=== PATIENT | female | born 1965 | race Caucasian/White ===

== ENCOUNTER 2020-09-03 18:24 | Emergency (ER) | payer MEDICAID, SELFPAY ==
--- NOTE | 2020-09-03 18:58 | PC.NURSE ---
charge nurse aware patient is in [facility] awaiting triage, on pulse ox when coughing pt drops to 84% on ra. placed on 2 l nc. 96% on 2 l nc
[2020-09-03 19:30] VITALS: BP 113/77; PULSE 77; RESP 22; TEMP 37; O2SAT 98; BMI 35.4
--- NOTE | 2020-09-03 19:53 | PC.NURSE ---
pt was in the alejo chair and ambulated to ed1 with steady gait and a barking cough. pt seen by provider benjamín jackson and waiting orders. pt has been talking on her cell phone with no sob noted but does have a nonprod cough.
--- NOTE | 2020-09-03 19:59 | XR_ITS ---
EXAMINATION: XR CHEST CLINICAL INFORMATION: Shortness of breath COMPARISON: 05/22/2020 TECHNIQUE: Frontal view of the chest was obtained. FINDINGS: No significant abnormality is noted involving the heart, lungs, mediastinum, bony thorax or soft tissues. The lungs are mildly hypoexpanded. Degenerative changes are again seen in the right shoulder. XR/XR chest 1V IMPRESSION: No acute intrathoracic disease
--- NOTE | 2020-09-03 19:59 | ECG_ITS ---
Test Reason : SHRTNESS OF BREATH Blood Pressure : / mmHG Vent. Rate : 089 BPM Atrial Rate : 089 BPM P-R Int : 126 ms QRS Dur : 078 ms QT Int : 376 ms P-R-T Axes : 036 042 054 degrees QTc Int : 457 ms Sinus rhythm with Premature atrial complexes RSR' or QR pattern in V1 suggests right ventricular conduction delay Borderline ECG When compared with ECG of 20-FEB-2020 09:32, Premature atrial complexes are now Present Heart rate has decreased Referred By: Figueroa Jaimes Electronically Signed By:VICTOR HUGO AMEZQUITA MD
[2020-09-03 20:06] VITALS: PULSE 94; O2SAT 97
[2020-09-03 20:07] VITALS: BP 121/45; PULSE 90; RESP 22; TEMP 37.2
[2020-09-03] MEDS: 0.9 % Sodium Chloride 500 ML 1000 ML IV (20:28)
[2020-09-03] MEDS: guaiFENesin DM 100/10/5 ML 5 ML SYRUP PO (20:35)
[2020-09-03] MEDS: methylPREDNISolone Sod Succ/PF 125 MG/2 ML VIAL IVPUSH (20:35)
[2020-09-03 20:40] LABS: Glucose Urine UA NEG (NEG); Leukocyte Esterase Urine NEG (NEG); Nitrite Urine NEG (NEG); PH 5.5 (5.0-8.0); Specific Gravity - Urine 1.025 (1.005-1.025); Urine Blood NEG (NEG); Urine Ketones 5 MG/DL (NEG); Urine Protein NEG (NEG-TRACE)
[2020-09-03 20:43] LABS: Appearance Urine CLEAR; Color Urine YELLOW
[2020-09-03 20:56] LABS: Bacteria Urine TRACE /LPF; RBC Urine 0-2 /HPF (0); Squamous Epithelial Cell Urine TRACE /LPF; WBC Urine 0 /HPF (0-4)
--- NOTE | 2020-09-03 21:19 | ED.URI ---
HPI - URI/Sore Throat General Chief Complaint: Upper Respiratory Symptoms Stated Complaint: cough,Sob Time Seen by Provider: 09/03/20 19:58 Source: patient Mode of arrival: ambulatory Limitations: no limitations History of Present Illness HPI Narrative: 51-year-old female with past medical history that is significant for alcohol use in the past, gastritis, abdominal hernia, history of UTI and surgical history cholecystectomy who presents today with complaint of states past 4 days of progressive worsening URI symptoms with cough. States she has had some nasal congestion the cough has caused her to be short of breath and the cough now sounds barky. Denies any recent travel or sick contacts. MD elicited complaint: cough, rhinorrhea and nasal congestion Onset (ago): day(s) Consistency: constant Severity: moderate Able to tolerate fluids by mouth: Yes Treatments prior to arrival: none Related Data Allergies Allergy/AdvReac Type Severity Reaction Status Date / Time aspirin [ASPIRIN] Allergy Unknown RASH Verified 09/03/20 19:30 Review of Systems Review of Systems: Constitutional: No Weight loss, No Fever, + Chills, No Night Sweats, No Fatigue, No Malaise ENT/Mouth: No Hearing loss, No Ear Pain, + Nasal Congestion, No Sinus Pain, No Hoarseness, No sore throat, + Rhinorrhea, No Swallowing Difficulty Eyes: No Eye Pain, No Swelling, No Redness, No Foreign Body, No Discharge, No Vision Changes Cardiovascular: No Chest Pain, + SOB, No Dyspnea on Exertion, No Orthopnea, No Edema, No Palpitations Respiratory: + Cough, No Sputum, No Wheezing, No Smoke Exposure, No Dyspnea Gastrointestinal: No Nausea, No Vomiting, No Diarrhea, No Constipation, No abdominal Pain, No Hematochezia, No Melena Genitourinary: no irregular bleeding, No Dysuria, No Urinary Frequency, No Hematuria, No Urinary Incontinence, No Urgency, No Flank Pain, No Urinary Flow Changes, No Hesitancy Musculoskeletal: No joint pain, No Myalgias, No Joint Swelling Skin: No Skin Lesions, No rash Neuro: No Weakness, No Numbness, No Paresthesias Psych: No Anxiety/Panic Heme/Lymph: No Bruising, No Bleeding,No Lymphadenopathy Endocrine: No Polyuria, No Polydipsia, No Temperature Intolerance Yes all other systems are reviewed and are negative PMFSH Past Medical History Attestation statement: The following information was validated with the patient. Source: old records reviewed Social History Social History Alcohol intake: current Alcohol intake frequency: 3 or more drinks per day Alcohol type: hard liquor Smoking Status: Never smoker Use of substances other than those prescribed or required for medical reasons: No Advance Directives: No Advance Directives Information Provided: No Physical Exam Vital Signs: Vital Signs: Last Vital Signs Temp 99.0 F 09/03/20 20:07 Pulse 90 09/03/20 20:07 Resp 22 H 09/03/20 20:07 BP 121/45 L 09/03/20 20:07 Pulse Ox 97 09/03/20 20:06 Body Mass Index 35.4 Reviewed Const: General: cooperative and healthy appearing; No acute distress or intoxicated appearing Nutritional Appearance: average body habitus Orientation/consciousness: patient oriented x3 HENMT: Head: Yes normal to inspection Ears: hearing grossly normal bilaterally Eyes: General: appearance normal, both eyes and all related structures Visual Anderson: normal visual anderson by confrontation Neck: Neck: Yes normal visual inspection, No positive Brudzinski's sign, No positive Kernig's sign and No tender Thyroid: Thyroid normal Chest: Chest palpation & inspection: normal inspection of the chest Resp: Effort & Inspection: normal respiratory effort and Actively coughing (Dry bronchial cough) Auscultation: wheezes (Very mild forced expiratory) right upper Cardio: Jugular venous distension: no JVD GI: Inspection: Yes normal to inspection Percussion: Yes normal to percussion Auscultation: normal bowel sounds : General: Yes no CVA tenderness Back/Spine/Pelvis: Back: no CVA tenderness Skin: General skin exam: no rashes or lesions noted Neuro: General: patient oriented x3 Extrem: General: Yes normal to inspection Course Course Course Narrative: Patient resting comfortably oxygen at 98% on room air after given neb and Solu-Medrol. Labs pending. Case signed out pending labs and re-evaluation. At this time likely anticipation is that if patient does well with ambulation and oxygen remains stable can be discharged home safely with antibiotics for the bronchitis. MDM - URI/Sore Throat MDM Narrative Medical decision making narrative: Interview 54-year-old female with above history presenting with complaint of short of breath/cough in the setting of a recent URI. Will need labs, chest x-ray will treat with IV fluids, DuoNeb and Solu-Medrol. Does not meet any sepsis criteria. We will check for COVID-19/influenza. Differential Diagnosis Differential diagnosis: Likely upper respiratory infection, viral infection, bronchitis and influenza; Unlikely otitis media and pharyngitis Medical Records Attestation: I reviewed the patient's medical records. Lab Data Attestation: I reviewed the patient's lab results. Labs: Lab Results 09/03/20 Range/Units 20:24 Urine Color YELLOW Urine Appearance CLEAR Urine pH 5.5 (5.0-8.0) Ur Specific [place] 1.025 (1.005-1.025) Urine Protein NEG (NEG-TRACE) MG/DL Urine Glucose (UA) NEG (NEG) MG/DL Urine Ketones 5 (NEG) MG/DL Urine Blood NEG (NEG) Urine Nitrite NEG (NEG) Ur Leukocyte Esterase NEG (NEG) Urine RBC 0-2 (0) /HPF Urine WBC 0 (0-4) /HPF Ur Squamous Epith Cells TRACE /LPF Urine Bacteria TRACE /LPF Discharge Plan Discharge Clinical Impression: Bronchitis
[2020-09-03 21:21] LABS: MANUAL DIFF FLAG NO
[2020-09-03 21:22] LABS: Basophils Percent Auto 0.6 % (0-2); Eosinophils Absolute Auto 0.3 X10*3/uL (0.0-0.4); Eosinophils Percent Auto 4.9 % (0-4); Hematocrit 37.5 % (37-47); Hemoglobin 12.2 g/dl (12.0-16.0); Imm Gran Abs Auto 0.01 X10*3/uL (0.00-0.03); Imm Gran Pct Auto 0.2 % (0.0-0.4); Lymphocytes Percent Auto 36.6 % (20-40); Mean Corpuscular HGB Conc 32.5 g/dl (31.0-35.0); Mean Corpuscular Hemoglobin 29.6 pg (27.0-33.0); Mean Platelet Volume 10.7 fL (9.4-12.3); Monocytes Absolute Auto 0.5 X10*3/uL (0.1-1.2); Monocytes Percent Auto 10.1 % (2-11); Neutrophils Absolute Auto 2.6 X10*3/uL (2.0-8.3); Neutrophils Percent Auto 47.6 % (45-73); Platelet Count 214 X10*3/uL (160-400); Red Blood Count 4.12 X10*6/uL (4.20-5.50); Red Cell Distribution Width 15.6 % (11.0-16.0); White Blood Count 5.4 X10*3/uL (4.8-10.8)
[2020-09-03 21:32] LABS: Prothrombin Time 12.3 SEC (10.8-13.0)
[2020-09-03 21:34] LABS: Partial Thromboplastin Time 32.1 SEC (24.1-38.0)
[2020-09-03 21:50] LABS: Lactic Acid 2.9 mmol/L (0.5-2.0)
[2020-09-03 21:52] LABS: Alanine Aminotransferase 28 U/L (0-31); Albumin Level 3.6 g/dL (3.5-5.0); Alkaline Phosphatase 83 U/L (39-117); Anion Gap 14 (12-20); Aspartate Amino Transferase 36 U/L (5-31); Bilirubin Total 0.5 mg/dL (0.0-1.0); Blood Urea Nitrogen 17 mg/dL (9-16); Calcium 7.7 mg/dL (8.4-10.2); Carbon Dioxide 29 mmol/L (22-29); Chloride 104 mmol/L (96-108); Estimated Glomerular Filt Rate > 60; Glucose Random 105 mg/dL (60-115); Potassium 3.4 mmol/l (3.3-5.1); Sodium 144 mmol/L (135-145); Total Protein 6.4 g/dL (6.5-8.0)
[2020-09-03 21:56] LABS: Troponin-I High Sensitivity < 3.5 ng/L (<3.5-17.0)
[2020-09-03 22:00] VITALS: BP 120/50; PULSE 88; RESP 18; TEMP 36.9; O2SAT 98
[2020-09-03 22:51] LABS: Influenza A PCR NEGATIVE (Negative); Influenza B PCR NEGATIVE (Negative); Resp Syncy Virus RNA Qual PCR NEGATIVE (Negative); SARS COV2 PCR INHOUSE NEGATIVE (Negative)
[2020-09-03] MEDS: Albuterol Sulfate 90 MCG 8 GM INHALER 4 PUFF INHALE (22:53)
[2020-09-03 23:17] LABS: Reflex Lactate? Lactic Acid Added
--- NOTE | 2020-09-03 23:56 | PC.NURSE ---
PT GETS ANXIOUSE WITH COUGHING AND FEELS LIKE SHE CANT BREATH. PT HAS BEEN NON STOP TALKING ON ENTERING THE ROOM WITH STAFF. PLAN IS TO GIVE THE PT A WALKING TEST TO SEE HOW HER BREATHING IS.
--- NOTE | 2020-09-04 00:11 | PC.NURSE ---
pt ambulated in the alejo and sat remained at 95% on room air. pt is anxiouse and her rr increases with anxiety. pt states that at home when laying in bed when she turns her head her vision is delayed. pt states she has not nasal drainage. pt dizzy upon standing. pt remains at 96% on room air while in bed.
--- NOTE | 2020-09-04 00:15 | PC.NURSE ---
hr 89 127/52 sat 95% on room air laying down hr 90 bp 105/65 sat 94% sitting position hr 94 bp 143/71 95% stqnding with swaying and dizziness.
[2020-09-04] MEDS: Meclizine HCl 25 MG TABLET PO (00:55)
[2020-09-04] MEDS: 0.9 % Sodium Chloride 1,000 ML 999 ML IVCONT (00:56)
[2020-09-04 02:00] VITALS: BP 116/57; PULSE 100; RESP 16; O2SAT 95
--- NOTE | 2020-09-04 03:18 | PC.NURSE ---
pt repeat lactic drawn after the 2nd liter of ns was ordered and completed per verbal order from provider. lactic drawn at this time and sent.
[2020-09-04 03:29] VITALS: BP 118/59; PULSE 92; RESP 20; O2SAT 95
[2020-09-04 04:04] LABS: Lactic Acid 5.8 mmol/L (0.5-2.0)
--- NOTE | 2020-09-04 04:06 | PC.NURSE ---
pt has been sleeping with no coughting noted. pt has been repositioned for better breathing and pt still positions herself to the end of the bed. vitals stable. plan is for discharge once the lactic comes back.
--- NOTE | 2020-09-04 04:09 | CT_ITS ---
EXAMINATION: CT CHEST WITHOUT CONTRAST CLINICAL INFORMATION: Shortness of breath. Concern for pneumonia. COMPARISON: 09/03/2020. TECHNIQUE: Contiguous axial thin section helical images of the chest were performed without contrast. The data set was reformatted in the coronal and sagittal planes and reviewed on an independent workstation. DLP: 435 mGy-cm. FINDINGS: The heart is of normal size. There is no pericardial effusion. There is neither mediastinal, hilar nor axillary lymphadenopathy. There are no chest wall masses. Review of lung windows demonstrates that there are neither pleural effusions nor pneumothoraces. There are no consolidations. There are no pulmonary parenchymal nodules. Images of the upper abdomen demonstrate that the liver is of normal size and attenuation without focal lesions. The patient is status post cholecystectomy. Surgical clips are identified. Normal adrenal glands are identified. Bone windows: Neither sclerotic nor lytic bone lesions are identified. CT/CT chest wo con IMPRESSION: No acute airspace disease. Automated exposure control (Care Dose) Adjustment of the mA and/or kv according to patient size (this includes techniques or standardized protocols for targeted exams where dose is matched to indication / reason for exam; i.e. extremities or head).
[2020-09-04 04:10] VITALS: BP 119/59; PULSE 85; RESP 16; O2SAT 96
--- NOTE | 2020-09-04 05:10 | PC.NURSE ---
pt up oob to bedside commode. pt states she is having diarrhea. pt pelon activity level at this time.
[2020-09-04 05:11] LABS: Reflex Lactate? Lactic Acid Added
[2020-09-04 06:00] VITALS: BP 113/56; PULSE 90; RESP 16; O2SAT 95
== END 2020-09-04 06:25 | disposition home or self-care (01) ==
PROVIDERS: Nurse Practitioner Primary Care; Physician Assistant; Emergency Provider Emergency Medicine; PCP Internal Medicine
DX: J40 Bronchitis, not specified as acute or chronic (principal); R05 Cough; Z20.828 Contact with and (suspected) exposure to other viral communicable diseases
CPT/HCPCS: 0241U; 11104; 36415; 71045; 71250; 80053; 81001; 83605; 84484; 85025; 85610; 85730; 93005; 94640; 96361; 96374; 99285; J2930

== ENCOUNTER → 2020-09-23 10:06 | Outpatient (BNVA) | payer MEDICAID, SELFPAY | PROVIDERS: PCP Internal Medicine; Visit Provider Internal Medicine | DX: R05 Cough (principal); E66.01 Morbid (severe) obesity due to excess calories; G47.33 Obstructive sleep apnea (adult) (pediatric); J98.4 Other disorders of lung | CPT/HCPCS: 99202 ==

== ENCOUNTER 2020-09-25 10:46 | Outpatient (REF) | payer MEDICAID, SELFPAY ==
--- NOTE | 2020-09-25 11:00 | PFT_ITS ---
INDICATION: Cough. SPIROMETRY: The FEV1 to FVC of 87% with an FEV1 of 2.11 L, which is 78% predicted, an FVC of 2.42 L which is 69% predicted. There was a significant response to bronchodilators noted. Maximum voluntary ventilation was not completed. Lung volumes: The patient did have a difficult time due to her cough and could not perform the full lung volume study. Her expiratory reserve volume was only indicated to be 13% however. DIFFUSION CAPACITY: DLCO 77% predicted. COMPARISONS: None. INTERPRETATION: This is a suboptimal study, but based on the information that we have, there is no obvious obstructive ventilatory defect. The patient does have a significant response to bronchodilators noted. Lung volumes could not be achieved, although the decrease in the expiratory reserve volume is suggestive of the elevated BMI. There is also mild diffusion impairment. Clinical correlation warranted. MD PATRICK Alvarez/CAMMIE / [id number]
== END 2020-09-25 10:47 | disposition home or self-care (01) ==
LOC: HO.RESP 10:46
PROVIDERS: PCP Internal Medicine; Visit Provider Family Medicine
DX: R05 Cough (principal)
CPT/HCPCS: 94010; 94729

== ENCOUNTER 2020-09-27 10:10 | Emergency (ER) | payer MEDICAID, SELFPAY ==
[2020-09-27] VITALS (8 sets, daily range): BP systolic 129–192; BP diastolic 53–110; PULSE 80–102; RESP 16–18; TEMP 37.1; O2SAT 93–98; BMI 40.4
--- NOTE | 2020-09-27 10:38 | ECG_ITS ---
Test Reason : WEAKNESS Blood Pressure : / mmHG Vent. Rate : 074 BPM Atrial Rate : 074 BPM P-R Int : 134 ms QRS Dur : 078 ms QT Int : 422 ms P-R-T Axes : 052 041 041 degrees QTc Int : 468 ms Normal sinus rhythm with sinus arrhythmia Normal ECG When compared with ECG of 03-SEP-2020 21:03, Premature atrial complexes are no longer Present Referred By: Karon Pugh Electronically Signed By:TITI MADRID MD
--- NOTE | 2020-09-27 10:38 | US_ITS ---
EXAMINATION: US VENOUS ULTRASOUND WITH DOPPLER LOWER EXTREMITY, RIGHT CLINICAL INFORMATION: Right leg pain. Rule out DVT. COMPARISON: None TECHNIQUE: Ultrasound of the deep veins is performed from the hip to the calf with compression sonography and color and pulse Doppler assessment. Spectral analysis with color-flow imaging is performed. FINDINGS: There is normal venous compression and respiratory variation and augmented flow. The visualized common femoral vein, superficial femoral vein, profunda femoral vein, popliteal vein, and the trifurcation region shows no evidence of deep venous thrombosis. There is no significant popliteal fossa cyst. There is mild soft tissue swelling in the right calf. US/US venous duplex LE RT IMPRESSION: No DVT demonstrated in the right lower extremity.
--- NOTE | 2020-09-27 10:43 | CT_ITS ---
EXAMINATION: CT ABDOMEN AND PELVIS WITH CONTRAST CLINICAL INFORMATION: Right abdominal pain, tender to palpation COMPARISON: CT chest 09/04/2020, CT abdomen and pelvis noncontrast 06/15/2020 TECHNIQUE: Multidetector volumetric images were obtained from the superior aspect of the liver through the pubic symphysis following administration 85 mL of Omnipaque 350 intravenous contrast. Sagittal and coronal reformatted images were obtained on the technologist's workstation. Oral contrast: No This CT examination was performed using dose optimization techniques as appropriate, variously including the following: *Automated exposure control *Adjustment of mA and/or kV according to patient size (this includes techniques or standardized protocols for targeted exams where dose is matched to indication/reason for exam; i.e. extremities or head) *Use of iterative reconstruction technique DLP: 827 mGy-cm FINDINGS: LUNG BASES: The visualized lung bases are unremarkable. LIVER, GALLBLADDER, AND BILIARY TREE: The liver is normal in size and smooth in contour. There is mild hepatic steatosis. No focal hepatic parenchymal lesion or intrahepatic ductal dilatation. Prior cholecystectomy. Common duct unremarkable. PANCREAS: Unremarkable. SPLEEN: Unremarkable. Incidental small splenule left upper quadrant 1 cm. ADRENAL GLANDS: Unremarkable. KIDNEYS AND URETERS: The kidneys are normal in size, shape, and attenuation. No hydronephrosis, hydroureter, or calculi seen. No perinephric stranding. BLADDER: Unremarkable. GASTROINTESTINAL TRACT: There is no bowel obstruction or acute inflammatory changes in the bowel or mesentery. The appendix is normal. Some accentuated submucosal fat is again noted right colon as previously described. There is no ascites or fluid collection. ABDOMINAL WALL: No significant hernia is appreciated. LYMPH NODES: No lymphadenopathy. VASCULAR: Unremarkable. PELVIC VISCERA: Anterior intramural uterine body fibroid under 2 cm. No adnexal mass or pelvic ascites. OSSEOUS STRUCTURES: No acute bony abnormality. Scattered degenerative changes spine. CT/CT abdomen pelvis w con IMPRESSION: 1. No acute inflammatory changes in abdomen or pelvis. Normal appendix. 2. Prior cholecystectomy. No ductal dilatation. 3. No hydronephrosis or perinephric stranding. 4. Hepatic steatosis. Small uterine fibroid.
--- NOTE | 2020-09-27 11:01 | ED_ITS ---
HPI - Extremity Problem General Chief complaint: Extremity Problem <DELORIS Parsons - Last Filed: 09/27/20 15:40> Stated complaint: RIGHT LEG PAIN/EDEMA <DELORIS Parsons Last Filed: 09/27/20 15:40> Time Seen by Provider: 09/27/20 10:26 <DELORIS Parsons - Last Filed: 09/27/20 15:40> Source: patient and EMS <DELORIS Parsons Last Filed: 09/27/20 15:40> Mode of arrival: EMS <DELORIS Parsons Last Filed: 09/27/20 15:40> History of Present Illness HPI Narrative: 54-year-old female with a past medical history of morbid obesity, TEODORA, restrictive lung disease BIBA from [facility] for RLE increased swelling and calf pain since Wednesday. Patient reports a chronic cough, chronic SOB, intermittent CP and dizziness x mos. Denies CP at present. Reports room spinning dizziness, worse with head movements/position changes, denies taking medications at home. Also reports acute on chronic abdominal pain, believe she has a hernia. Admits to nausea/vomiting. Denies fever, chills, dysuria/hematuria, diarrhea/constipation, recent travel, history of blood clots <DELORIS Parsons Last Filed: 09/27/20 15:40> MD Complaint: extremity pain and extremity swelling <DELORIS Parsons - Last Filed: 09/27/20 15:40> Related Data Home medications: Home Medications Medication Instructions Recorded Confirmed fluticasone propionate 110 1 puff INHALATION QID g 09/23/20 mcg/actuation HFA aerosol inhaler fluticasone propionate 50 1 spray INTRANASAL DAILY 09/23/20 mcg/actuation nasal spray,suspension hydroxyzine pamoate 25 mg capsule 25 mg PO TID 09/23/20 ipratropium 20 mcg-albuterol 100 1 puff INHALATION QID 09/23/20 mcg/actuation mist for inhalation loratadine-pseudoephedrine ER 10 1 tab PO DAILY 09/23/20 mg-240 mg tablet,extended [id number] omeprazole 20 mg capsule,delayed 20 mg PO DAILY 09/23/20 release Previous Rx's Medication Instructions Recorded albuterol sulfate 2 puff INHALATION Q6H PRN #18 g 09/04/20 benzonatate [Tessalon Perles] 100 mg PO TID PRN #15 cap 09/04/20 meclizine 25 mg PO TID PRN #14 tab 09/27/20 <DELORIS Parsons - Last Filed: 09/27/20 15:40> Allergies/Adverse reactions: Allergies Allergy/AdvReac Type Severity Reaction Status Date / Time aspirin [ASPIRIN] Allergy Unknown RASH Verified 09/23/20 10:29 <DELORIS Parsons - Last Filed: 09/27/20 15:40> Review of Systems Review of Systems: Constitutional: No Weight loss, No Fever, No Chills ENT/Mouth: No Ear Pain, No Nasal Congestion, No Sinus Pain, No sore throat Cardiovascular: +intermittent Chest Pain (not at present), +chronic SOB, +RLE Edema, No Palpitations Respiratory: +chronic Cough, No Sputum, No Wheezing Gastrointestinal: + Nausea, + Vomiting, No Diarrhea, No Constipation, + Abdominal pain Genitourinary: No irregular bleeding, No Dysuria, No Urinary Frequency, No Hematuria Musculoskeletal: No joint pain, No Myalgias, No Joint Swelling Skin: No Skin Lesions, No rash <DELORIS Parsons - Last Filed: 09/27/20 15:40> Yes all other systems are reviewed and are negative <DELORIS Parsons - Last Filed: 09/27/20 15:40> [facility] Past Medical History Attestation statement: The following information was validated with the patient. <DELORIS Parsons - Last Filed: 09/27/20 15:40> Medical History: Medical History (Updated 09/28/20 @ 00:00 by Sona Fairchild) Cough Morbid obesity TEODORA (obstructive sleep apnea) Restrictive lung disease <DELORIS Parsons - Last Filed: 09/27/20 15:40> Social History Social History: Social History Alcohol intake: current Alcohol intake frequency: a few times a week Alcohol type: hard liquor Smoking Status: Never smoker <DELORIS Parsons Last Filed: 09/27/20 15:40> Physical Exam Vital Signs: Vital Signs: Last Vital Signs Temp 98.7 F 09/27/20 14:00 Pulse 102 H 09/27/20 14:57 Resp 18 09/27/20 14:00 BP 177/92 H 09/27/20 14:57 Pulse Ox 98 09/27/20 14:00 Body Mass Index 40.4 <DELORIS Parsons - Last Filed: 09/27/20 15:40> Vital Signs: Last Vital Signs Temp 98.7 F 09/27/20 14:00 Pulse 102 H 09/27/20 14:57 Resp 18 09/27/20 14:00 BP 177/92 H 09/27/20 14:57 Pulse Ox 98 09/27/20 14:00 Body Mass Index 40.4 <Myron Dodd MD - Last Filed: 10/18/20 08:57> Const: General: cooperative <DELORIS Parsons - Last Filed: 09/27/20 15:40> Nutritional Appearance: obese <DELORIS Parsons - Last Filed: 09/27/20 15:40> Orientation/consciousness: patient oriented x3 <DELORIS Parsons - Last Filed: 09/27/20 15:40> Limitations: no limitations <DELORIS Parsons - Last Filed: 09/27/20 15:40> HENMT: Head: Yes normal to inspection <DELORIS Parsons - Last Filed: 09/27/20 15:40> Ears: hearing grossly normal bilaterally <DELORIS Parsons - Last Filed: 09/27/20 15:40> General nose exam: Normal external nose present <DELORIS Parsons - Last Filed: 09/27/20 15:40> Face and sinus: Yes normal facial exam <DELORIS Parsons - Last Filed: 09/27/20 15:40> Eyes: General: appearance normal, both eyes and all related structures <DELORIS Parsons - Last Filed: 09/27/20 15:40> EOM: EOMs intact bilaterally <DELORIS Parsons - Last Filed: 09/27/20 15:40> Neck: Neck: Yes normal visual inspection <DELORIS Parsons - Last Filed: 09/27/20 15:40> Chest: Chest palpation & inspection: normal inspection of the chest <DELORIS Parsons - Last Filed: 09/27/20 15:40> Resp: Effort & Inspection: normal respiratory effort <DELORIS Parsons - Last Filed: 09/27/20 15:40> Auscultation: clear to auscultation bilaterally, no crackles, no rales, no rhonchi and no wheezes <DELORIS Parsons - Last Filed: 09/27/20 15:40> Cardio: Rate: regular rate <DELORIS Parsons - Last Filed: 09/27/20 15:40> Heart sounds: S1 normal heart sound present and S2 normal heart sound present <DELORIS Parsons - Last Filed: 09/27/20 15:40> GI: Inspection: Yes normal to inspection <DELORIS Prasons - Last Filed: 09/27/20 15:40> Palpation (GI): Soft to palpation, Tenderness to palpation present (GI) (R abdomen) in the RLQ, no guarding and not rigid <DELORIS Parsons - Last Filed: 09/27/20 15:40> Skin: Other: + superficial excoriations noted to bilateral lower extremities. No evidence of active infection <DELORIS Parsons - Last Filed: 09/27/20 15:40> Neuro: General: patient oriented x3 <DELORIS Parsons - Last Filed: 09/27/20 15:40> Extrem: Other: +RLE pitting edema with calf tenderness and positive Homans sign <DELORIS Parsons - Last Filed: 09/27/20 15:40> Course Course Course Narrative: -1239--AST/ALT mildly elevated -Venous duplex negative for DVT -1445--CT AP without acute inflammatory changes in the abdomen or pelvis. Normal appendix. -orthostatic vital signs positive, will recheck after IVF -1536--repeat orthostatic vital signs negative after IVF Lab and imaging results discussed with patient including close follow-up with PCP, worrisome signs and symptoms and strict return precautions. Patient verbalized understanding feel safe for discharge home <DELORIS Parsons - Last Filed: 09/27/20 15:40> I have reviewed the chart <Myron Dodd MD - Last Filed: 10/18/20 08:57> MDM - Extremity (Nontraumatic) MDM Narrative Medical decision making narrative: 54-year-old female with a past medical history of morbid obesity, TEODORA, res trictive lung disease BIBA from [facility] for RLE increased swelling and calf pain since Wednesday. Patient reports a chronic cough, chronic SOB, intermittent CP and dizziness x mos On exam VSS, NAD, lungs CTA, RLE pitting edema/calf tenderness noted, abdomen soft with right abdominal TTP, no rebound or guarding. Concern for DVT vs intra abdominal infection including appendicitis vs metabolic abnormalities vs BPPV. Rule out infectious etiology. Low concern for ACS or PE Recent chest CT and x-ray without acute findings. Plan: EKG, labs, UA, venous duplex, CT AP, reassess <DELORIS Parsons - Last Filed: 09/27/20 15:40> Lab Data Result diagrams: : 09/27/20 11:29 09/27/20 11:29 <DELORIS Parsons - Last Filed: 09/27/20 15:40> Labs: Lab Results 09/27/20 09/27/20 09/27/20 Range/Units 11:29 11:29 11:29 WBC 8.6 (4.8-10.8) X10*3/uL RBC 4.01 L (4.20-5.50) X10*6/uL Hgb 12.0 (12.0-16.0) g/dl Hct 37.3 (37-47) % MCV 93.0 (80-98) fL MCH 29.9 (27.0-33.0) pg MCHC 32.2 (31.0-35.0) g/dl RDW 14.8 (11.0-16.0) % Plt Count 250 (160-400) X10*3/uL MPV 10.5 (9.4-12.3) fL Immature Gran % (Auto) 0.8 H (0.0-0.4) % Neut % (Auto) 76.5 H (45-73) % Lymph % (Auto) 11.9 L (20-40) % Cla[place]orne % (Auto) 7.9 (2-11) % Eos % (Auto) 2.7 (0-4) % Baso % (Auto) 0.2 (0-2) % Lymph # (Auto) 1.0 L (1.2-4.9) X10*3/uL [place] # (Auto) 0.7 (0.1-1.2) X10*3/uL Eos # (Auto) 0.2 (0.0-0.4) X10*3/uL Baso # (Auto) 0.0 (0.0-0.2) X10*3/uL Abs Immat Gran (auto) 0.07 H (0.00-0.03) X10*3/uL Absolute Neuts (auto) 6.6 (2.0-8.3) X10*3/uL Absolute Nucleated RBC 0.000 (0.0-0.012) X10*3/uL Nucleated RBC % (auto) 0.0 (0.0-0.2) /100WBC PT (10.8-13.0) SEC INR (0.9-1.1) APTT (24.1-38.0) SEC Sodium 141 (135-145) mmol/L Potassium 3.6 (3.3-5.1) mmol/l Chloride 100 (96-108) mmol/L Carbon Dioxide 32 H (22-29) mmol/L Anion Gap 13 (12-20) BUN 10 (9-16) mg/dL Creatinine 0.69 (0.5-1.4) mg/dL Estim Creat Clear Calc 112.5 Estimated GFR > 60 Random Glucose 87 (60-115) mg/dL Calcium 8.5 D (8.4-10.2) mg/dL Magnesium 1.6 (1.6-2.6) mg/dL Total Bilirubin 0.6 (0.0-1.0) mg/dL Direct Bilirubin 0.2 (0.0-0.5) mg/dL AST 46 H (5-31) U/L ALT 38 H (0-31) U/L Alkaline Phosphatase 114 D (39-117) U/L Troponin I High Sens 4.7 (<3.5-17.0) ng/L B-Natriuretic Peptide 43 (<100) pg/mL Total Protein 6.7 (6.5-8.0) g/dL Albumin 4.0 (3.5-5.0) g/dL Lipase 12 (8-78) U/L 09/27/20 Range/Units 11:29 WBC (4.8-10.8) X10*3/uL RBC (4.20-5.50) X10*6/uL Hgb (12.0-16.0) g/dl Hct (37-47) % MCV (80-98) fL MCH (27.0-33.0) pg MCHC (31.0-35.0) g/dl RDW (11.0-16.0) % Plt Count (160-400) X10*3/uL MPV (9.4-12.3) fL Immature Gran % (Auto) (0.0-0.4) % Neut % (Auto) (45-73) % Lymph % (Auto) (20-40) % Claiborne % (Auto) (2-11) % Eos % (Auto) (0-4) % Baso % (Auto) (0-2) % Lymph # (Auto) (1.2-4.9) X10*3/uL Claiborne # (Auto) (0.1-1.2) X10*3/uL Eos # (Auto) (0.0-0.4) X10*3/uL Baso # (Auto) (0.0-0.2) X10*3/uL Abs Immat Gran (auto) (0.00-0.03) X10*3/uL Absolute Neuts (auto) (2.0-8.3) X10*3/uL Absolute Nucleated RBC (0.0-0.012) X10*3/uL Nucleated RBC % (auto) (0.0-0.2) /100WBC PT 11.3 (10.8-13.0) SEC INR 1.0 (0.9-1.1) APTT 35.5 (24.1-38.0) SEC Sodium (135-145) mmol/L Potassium (3.3-5.1) mmol/l Chloride (96-108) mmol/L Carbon Dioxide (22-29) mmol/L Anion Gap (12-20) BUN (9-16) mg/dL Creatinine (0.5-1.4) mg/dL Estim Creat Clear Calc Estimated GFR Random Glucose (60-115) mg/dL Calcium (8.4-10.2) mg/dL Magnesium (1.6-2.6) mg/dL Total Bilirubin (0.0-1.0) mg/dL Direct Bilirubin (0.0-0.5) mg/dL AST (5-31) U/L ALT (0-31) U/L Alkaline Phosphatase (39-117) U/L Troponin I High Sens (<3.5-17.0) ng/L B-Natriuretic Peptide (<100) pg/mL Total Protein (6.5-8.0) g/dL Albumin (3.5-5.0) g/dL Lipase (8-78) U/L <DELORIS Parsons - Last Filed: 09/27/20 15:40> Lab Results 09/27/20 09/27/20 09/27/20 Range/Units 11:29 11:29 11:29 WBC 8.6 (4.8-10.8) X10*3/uL RBC 4.01 L (4.20-5.50) X10*6/uL Hgb 12.0 (12.0-16.0) g/dl Hct 37.3 (37-47) % MCV 93.0 (80-98) fL MCH 29.9 (27.0-33.0) pg MCHC 32.2 (31.0-35.0) g/dl RDW 14.8 (11.0-16.0) % Plt Count 250 (160-400) X10*3/uL MPV 10.5 (9.4-12.3) fL Immature Gran % (Auto) 0.8 H (0.0-0.4) % Neut % (Auto) 76.5 H (45-73) % Lymph % (Auto) 11.9 L (20-40) % Cla[place]orne % (Auto) 7.9 (2-11) % Eos % (Auto) 2.7 (0-4) % Baso % (Auto) 0.2 (0-2) % Lymph # (Auto) 1.0 L (1.2-4.9) X10*3/uL Cla[place]orne # (Auto) 0.7 (0.1-1.2) X10*3/uL Eos # (Auto) 0.2 (0.0-0.4) X10*3/uL Baso # (Auto) 0.0 (0.0-0.2) X10*3/uL Abs Immat Gran (auto) 0.07 H (0.00-0.03) X10*3/uL Absolute Neuts (auto) 6.6 (2.0-8.3) X10*3/uL Absolute Nucleated RBC 0.000 (0.0-0.012) X10*3/uL Nucleated RBC % (auto) 0.0 (0.0-0.2) /100WBC PT (10.8-13.0) SEC INR (0.9-1.1) APTT (24.1-38.0) SEC Sodium 141 (135-145) mmol/L Potassium 3.6 (3.3-5.1) mmol/l Chloride 100 (96-108) mmol/L Carbon Dioxide 32 H (22-29) mmol/L Anion Gap 13 (12-20) BUN 10 (9-16) mg/dL Creatinine 0.69 (0.5-1.4) mg/dL Estim Creat Clear Calc 112.5 Estimated GFR > 60 Random Glucose 87 (60-115) mg/dL Calcium 8.5 D (8.4-10.2) mg/dL Magnesium 1.6 (1.6-2.6) mg/dL Total Bilirubin 0.6 (0.0-1.0) mg/dL Direct Bilirubin 0.2 (0.0-0.5) mg/dL AST 46 H (5-31) U/L ALT 38 H (0-31) U/L Alkaline Phosphatase 114 D (39-117) U/L Troponin I High Sens 4.7 (<3.5-17.0) ng/L B-Natriuretic Peptide 43 (<100) pg/mL Total Protein 6.7 (6.5-8.0) g/dL Albumin 4.0 (3.5-5.0) g/dL Lipase 12 (8-78) U/L 09/27/20 Range/Units 11:29 WBC (4.8-10.8) X10*3/uL RBC (4.20-5.50) X10*6/uL Hgb (12.0-16.0) g/dl Hct (37-47) % MCV (80-98) fL MCH (27.0-33.0) pg MCHC (31.0-35.0) g/dl RDW (11.0-16.0) % Plt Count (160-400) X10*3/uL MPV (9.4-12.3) fL Immature Gran % (Auto) (0.0-0.4) % Neut % (Auto) (45-73) % Lymph % (Auto) (20-40) % Cla[place]orne % (Auto) (2-11) % Eos % (Auto) (0-4) % Baso % (Auto) (0-2) % Lymph # (Auto) (1.2-4.9) X10*3/uL Cla[place]orne # (Auto) (0.1-1.2) X10*3/uL Eos # (Auto) (0.0-0.4) X10*3/uL Baso # (Auto) (0.0-0.2) X10*3/uL Abs Immat Gran (auto) (0.00-0.03) X10*3/uL Absolute Neuts (auto) (2.0-8.3) X10*3/uL Absolute Nucleated RBC (0.0-0.012) X10*3/uL Nucleated RBC % (auto) (0.0-0.2) /100WBC PT 11.3 (10.8-13.0) SEC INR 1.0 (0.9-1.1) APTT 35.5 (24.1-38.0) SEC Sodium (135-145) mmol/L Potassium (3.3-5.1) mmol/l Chloride (96-108) mmol/L Carbon Dioxide (22-29) mmol/L Anion Gap (12-20) BUN (9-16) mg/dL Creatinine (0.5-1.4) mg/dL Estim Creat Clear Calc Estimated GFR Random Glucose (60-115) mg/dL Calcium (8.4-10.2) mg/dL Magnesium (1.6-2.6) mg/dL Total Bilirubin (0.0-1.0) mg/dL Direct Bilirubin (0.0-0.5) mg/dL AST (5-31) U/L ALT (0-31) U/L Alkaline Phosphatase (39-117) U/L Troponin I High Sens (<3.5-17.0) ng/L B-Natriuretic Peptide (<100) pg/mL Total Protein (6.5-8.0) g/dL Albumin (3.5-5.0) g/dL Lipase (8-78) U/L <Myron Dodd MD - Last Filed: 10/18/20 08:57> Discharge Plan Discharge Clinical Impression: Edema of right lower extremity, Dizziness <DELORIS Parsons - Last Filed: 09/27/20 15:40> Patient Disposition: Home, Self-Care <DELORIS Parsons - Last Filed: 09/27/20 15:40> Instructions: Leg Edema (ED) <DELORIS Parsons - Last Filed: 09/27/20 15:40> Additional Instructions: Your blood work and imaging studies were unremarkable today in the ED You need to stay hydrated at Wear compression stockings on your leg Follow-up with her primary care doctor If her symptoms persist or worsen, develops fever, shortness breath, chest pain, constant persistent lightheadedness/dizziness return to the ED Meclizine is for dizziness, take as needed <DELORIS Parsons - Last Filed: 09/27/20 15:40> Prescriptions: New meclizine 25 mg tablet 25 mg PO TID PRN (Reason: dizziness) Qty: 14 RF: 0 No Action benzonatate [Tessalon Perles] 100 mg capsule 100 mg PO TID PRN (Reason: cough) Qty: 15 RF: 0 albuterol sulfate 90 mcg/actuation HFA aerosol inhaler 2 puff inhalation Q6H PRN (Reason: shortness of breath or wheezing) Qty: 18 RF: 0 Flovent HFA 110 mcg/actuation HFA aerosol inhaler 1 puff inhalation QID RF: 0 Combivent Respimat 20-100 mcg/actuation mist 1 puff inhalation QID RF: 0 fluticasone propionate [Flonase Allergy Relief] 50 mcg/actuation spray,suspension 1 spray intranasal DAILY RF: 0 omeprazole 20 mg capsule,delayed release(DR/EC) 20 mg PO DAILY RF: 0 loratadine-pseudoephedrine [Claritin-D 24 Hour] 10-240 mg tablet extended release 24 hr 1 tab PO DAILY RF: 0 hydroxyzine pamoate 25 mg capsule 25 mg PO TID RF: 0 <DELORIS Parsons - Last Filed: 09/27/20 15:40> Referrals: [facility] [Primary Care Provider] - 2 days <DELORIS Parsons - Last Filed: 09/27/20 15:40> Interventions: ED Discharge Assessment Last Done: 09/27/20 16:37 <DELORIS Parsons - Last Filed: 09/27/20 15:40> Discharge Date/Time: 09/27/20 16:40 <DELORIS Parsons - Last Filed: 09/27/20 15:40>
[2020-09-27] MEDS: Meclizine HCl 25 MG TABLET PO (11:23)
[2020-09-27] MEDS: 0.9 % Sodium Chloride 500 ML 999 ML IVCONT (11:24)
[2020-09-27 11:43] LABS: Basophils Percent Auto 0.2 % (0-2); Eosinophils Absolute Auto 0.2 X10*3/uL (0.0-0.4); Eosinophils Percent Auto 2.7 % (0-4); Hematocrit 37.3 % (37-47); Imm Gran Abs Auto 0.07 X10*3/uL (0.00-0.03); Imm Gran Pct Auto 0.8 % (0.0-0.4); Lymphocytes Percent Auto 11.9 % (20-40); MANUAL DIFF FLAG NO; Mean Corpuscular HGB Conc 32.2 g/dl (31.0-35.0); Mean Corpuscular Hemoglobin 29.9 pg (27.0-33.0); Mean Platelet Volume 10.5 fL (9.4-12.3); Monocytes Absolute Auto 0.7 X10*3/uL (0.1-1.2); Monocytes Percent Auto 7.9 % (2-11); Neutrophils Absolute Auto 6.6 X10*3/uL (2.0-8.3); Neutrophils Percent Auto 76.5 % (45-73); Platelet Count 250 X10*3/uL (160-400); Red Blood Count 4.01 X10*6/uL (4.20-5.50); Red Cell Distribution Width 14.8 % (11.0-16.0); White Blood Count 8.6 X10*3/uL (4.8-10.8)
[2020-09-27 12:00] LABS: Prothrombin Time 11.3 SEC (10.8-13.0)
[2020-09-27 12:03] LABS: Partial Thromboplastin Time 35.5 SEC (24.1-38.0)
[2020-09-27 12:21] LABS: Alanine Aminotransferase 38 U/L (0-31); Alkaline Phosphatase 114 U/L (39-117); Anion Gap 13 (12-20); Aspartate Amino Transferase 46 U/L (5-31); Bilirubin Direct 0.2 mg/dL (0.0-0.5); Bilirubin Total 0.6 mg/dL (0.0-1.0); Blood Urea Nitrogen 10 mg/dL (9-16); Calcium 8.5 mg/dL (8.4-10.2); Carbon Dioxide 32 mmol/L (22-29); Chloride 100 mmol/L (96-108); Creatinine Clr Calc Pharmacy 112.5; Estimated Glomerular Filt Rate > 60; Glucose Random 87 mg/dL (60-115); Lipase 12 U/L (8-78); Magnesium 1.6 mg/dL (1.6-2.6); Potassium 3.6 mmol/l (3.3-5.1); Sodium 141 mmol/L (135-145); Total Protein 6.7 g/dL (6.5-8.0)
[2020-09-27 12:29] LABS: B Type Natriuretic Peptide 43 pg/mL (<100)
[2020-09-27] MEDS: iohexoL 350 MG/ML 100 ML INFUS..BTL IV (12:54)
[2020-09-27 13:36] LABS: Troponin-I High Sensitivity 4.7 ng/L (<3.5-17.0)
[2020-09-27] MEDS: Butalb/Acetamin/Caff 50/325/40 TABLET 1 TAB PO (14:26)
[2020-09-27] MEDS: ondansetron HCL 4 MG/2 ML VIAL IVPUSH (14:26)
--- NOTE | 2020-09-27 16:24 | PC.NURSE ---
Report called to RN.
== END 2020-09-27 16:40 | disposition home or self-care (01) ==
PROVIDERS: Physician Assistant; Emergency Provider Emergency Medicine
DX: R60.0 Localized edema (principal); M79.661 Pain in right lower leg; R42 Dizziness and giddiness; Z79.899 Other long term (current) drug therapy
CPT/HCPCS: 36415; 74177; 80048; 80076; 83690; 83735; 83880; 84484; 85025; 85610; 85730; 93005; 93971; 96374; 99284; J2405; Q9967

== ENCOUNTER 2020-10-04 10:26 | Outpatient (REF) | payer MEDICAID, SELFPAY ==
--- NOTE | 2020-10-04 10:33 | XR_ITS ---
EXAMINATION: XR FOOT, RIGHT CLINICAL INFORMATION: Swelling COMPARISON: None TECHNIQUE: AP, lateral, and oblique views of the right foot. FINDINGS: Bone alignment is normal. No fracture or dislocation is seen. Joint spaces are normal. There is a plantar calcaneal spur. Soft tissues are otherwise normal. XR/XR foot RT min 3V IMPRESSION: Calcaneal spur otherwise unremarkable exam.
== END 2020-10-04 10:27 | disposition home or self-care (01) ==
LOC: HO.XRAY 10:26
PROVIDERS: PCP Internal Medicine; Visit Provider Family Medicine
DX: R60.0 Localized edema (principal)
CPT/HCPCS: 73630

== ENCOUNTER → 2020-10-14 12:22 | Outpatient (REF) | payer MEDICAID, SELFPAY | LOC: HO.SL 12:22 | PROVIDERS: PCP Internal Medicine; Visit Provider Internal Medicine | DX: G47.33 Obstructive sleep apnea (adult) (pediatric) (principal); E66.01 Morbid (severe) obesity due to excess calories | CPT/HCPCS: 95806 ==

== ENCOUNTER → 2020-10-28 11:25 | Outpatient (BNVA) | payer MEDICAID, SELFPAY | PROVIDERS: PCP Family Medicine; Visit Provider Internal Medicine | DX: R05 Cough (principal); G47.33 Obstructive sleep apnea (adult) (pediatric); J98.4 Other disorders of lung; I27.0 Primary pulmonary hypertension; E66.01 Morbid (severe) obesity due to excess calories; Z79.899 Other long term (current) drug therapy | CPT/HCPCS: 99212 ==

== ENCOUNTER 2020-11-18 17:28 | Inpatient (IN) | payer MEDICAID, SELFPAY ==
--- NOTE | 2020-11-18 | ECG_ITS ---
Test Reason : CHEST PAIN Blood Pressure : / mmHG Vent. Rate : 093 BPM Atrial Rate : 093 BPM P-R Int : 136 ms QRS Dur : 074 ms QT Int : 400 ms P-R-T Axes : 051 032 050 degrees QTc Int : 498 ms Normal sinus rhythm Possible Left atrial enlargement Nonspecific ST abnormality Prolonged QT Abnormal ECG When compared with ECG of 27-SEP-2020 11:40, QT has lengthened Referred By: Jose Guerrero Electronically Signed By:Elias Bloom
[2020-11-18 18:11] VITALS: BP 117/86; PULSE 110; RESP 18; TEMP 36.8; O2SAT 97; BMI 42.9
--- NOTE | 2020-11-18 18:43 | XR_ITS ---
EXAMINATION: XR CHEST CLINICAL INFORMATION: Chest pain. Discomfort. COMPARISON: Chest x-ray 09/03/2020 TECHNIQUE: Frontal view of the chest was obtained. 6:54 PM FINDINGS: No significant abnormality is noted involving the heart, lungs, mediastinum, bony thorax or soft tissues. XR/XR chest 1V IMPRESSION: Unremarkable examination.
[2020-11-18 20:33] LABS: Basophils Absolute Auto 0.1 X10*3/uL (0.0-0.2); Basophils Percent Auto 0.3 % (0-2); Eosinophils Absolute Auto 0.2 X10*3/uL (0.0-0.4); Hematocrit 42.3 % (37-47); Hemoglobin 14.9 g/dl (12.0-16.0); Imm Gran Abs Auto 0.06 X10*3/uL (0.00-0.03); Imm Gran Pct Auto 0.4 % (0.0-0.4); Lymphocytes Absolute Auto 1.4 X10*3/uL (1.2-4.9); Lymphocytes Percent Auto 9.8 % (20-40); MANUAL DIFF FLAG NO; Mean Corpuscular HGB Conc 35.2 g/dl (31.0-35.0); Mean Corpuscular Hemoglobin 30.3 pg (27.0-33.0); Mean Corpuscular Volume 86.2 fL (80-98); Mean Platelet Volume 10.8 fL (9.4-12.3); Monocytes Percent Auto 6.8 % (2-11); NRBC Pct Auto 0.1 /100WBC (0.0-0.2); Neutrophils Percent Auto 81.7 % (45-73); Platelet Count 230 X10*3/uL (160-400); Red Blood Count 4.91 X10*6/uL (4.20-5.50); Red Cell Distribution Width 13.9 % (11.0-16.0); White Blood Count 14.7 X10*3/uL (4.8-10.8)
[2020-11-18 21:03] LABS: Anion Gap 22 (12-20); Blood Urea Nitrogen 21 mg/dL (9-16); Calcium 8.6 mg/dL (8.4-10.2); Carbon Dioxide 27 mmol/L (22-29); Chloride 90 mmol/L (96-108); Creatinine Clr Calc Pharmacy 34.9; Estimated Glomerular Filt Rate 22; Glucose Random 129 mg/dL (60-115); Potassium 2.7 mmol/l (3.3-5.1); Sodium 136 mmol/L (135-145)
[2020-11-18 21:25] LABS: Troponin-I High Sensitivity 20.4 ng/L (<3.5-17.0)
[2020-11-18 21:39] VITALS: BP 90/40; PULSE 99; RESP 24; TEMP 37.2; O2SAT 99
[2020-11-18 23:01] VITALS: BP 100/52; PULSE 87; RESP 16; O2SAT 93
--- NOTE | 2020-11-18 23:03 | PC.NURSE ---
Pt arrives from home, CAOx4, speaking full sentences. Pt explains that she recently traveled to [place] for a week to visit family. Pt states that while she was there, she forgot her Lisinopril. Pt states that she just started taking her Lisinopril as prescribed when she returned today. Pt reports elevated BP readings @ home with a systolic of 188. Pt ambulating with a steady gait from wheelchair to bed, speaking full sentences. Pt c/o a JIM and chest discomfort. EKG obtained in Triage. Pt also reporting severe abdominal pain, states her whole abdomen. Reports intermittent diarrhea, states she had had the abdominal pain for 2 months. VSS. Awaiting primary MD landen.
[2020-11-18] MEDS: Potassium Chloride ER 20 MEQ TAB.ER.PRT 60 MEQ PO (23:47)
[2020-11-18] MEDS: Morphine Sulfate 4 MG/ML CARTRIDGE IVPUSH (23:47)
[2020-11-18] MEDS: 0.9 % Sodium Chloride 1,000 ML 999 ML IV (23:47)
[2020-11-18] MEDS: Potassium Chloride/H20 10 MEQ/100 ML PIGGYBACK 100 MEQ IV (23:47)
[2020-11-18 23:53] LABS: Alanine Aminotransferase 40 U/L (0-31); Alkaline Phosphatase 310 U/L (39-117); Aspartate Amino Transferase 57 U/L (5-31); Bilirubin Direct 0.6 mg/dL (0.0-0.5); Bilirubin Total 1.5 mg/dL (0.0-1.0); C Reactive Protein 0.52 mg/dL (< or = 0.50); Lipase 39 U/L (8-78); Magnesium 1.5 mg/dL (1.6-2.6); Total Protein 6.9 g/dL (6.5-8.0)
[2020-11-19] VITALS (10 sets, daily range): BP systolic 92–134; BP diastolic 47–71; PULSE 82–96; RESP 16–24; TEMP 36.4–37.1; O2SAT 93–96
[2020-11-19] MEDS: ondansetron HCL 4 MG/2 ML VIAL IVPUSH (00:10)
--- NOTE | 2020-11-19 00:10 | PC.NURSE ---
IV established, labs and Covid swab obtained and sent. IVF and Potassium infusing per MAR. Pt medicated with Morphine for 9/10 pain to head, chest and abdomen. Pt vomiting, given Zofran with relief. 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 Continue to monitor.
[2020-11-19 00:30] LABS: COVID-19 Test Negative (Negative)
[2020-11-19 00:42] LABS: Troponin-I High Sensitivity 28.9 ng/L (<3.5-17.0)
--- NOTE | 2020-11-19 00:52 | CT_ITS ---
EXAM: NONCONTRAST CT OF THE CHEST; NONCONTRAST CT OF THE ABDOMEN AND PELVIS INDICATION: Chest pain, cough, shortness of breath, diffuse abdominal pain, vomiting/diarrhea, elevated LFTs COMPARISON: 09/27/2020 TECHNIQUE: No IV contrast was utilized. Multidetector helical imaging was performed through the chest, abdomen, and pelvis. Coronal and sagittal reformatted images were created at the technologist workstation. DOSE LOWERING TECHNIQUES: This CT examination was performed using dose optimization techniques as appropriate, variously including the following: - Automated exposure control - Adjustment of mA and/or kV according to patient size (this includes techniques or standardized protocols for targeted exams were dose is matched to indication/reason for exam; i.e. extremities or head) - Use of iterative reconstruction technique DLP: 1393 mGy-cm FINDINGS: Chest: Lungs are clear bilaterally without consolidation. Few scattered calcified granulomas are present. No pneumothorax or pleural effusion. The thyroid gland is not visualized. There are subcentimeter mediastinal lymph nodes within the range of normal variation. Cardiac size is within normal limits; no pericardial effusion. No axillary lymphadenopathy is present. Abdomen/Pelvis: The liver demonstrates hypoattenuation suspicious for steatosis. No intrahepatic biliary ductal dilatation. Patient is status post cholecystectomy. The unenhanced spleen, pancreas, and adrenal glands are within normal limits. The unenhanced kidneys are unremarkable without hydronephrosis. No renal or ureteral calculi are present. The urinary bladder is nearly empty and not well evaluated. There is a suspected anterior uterine fibroid, not well delineated on this noncontrast exam. No evidence of bowel obstruction or active inflammation. There is prominent submucosal fat in the ascending colon which can be seen as sequelae of prior inflammation. The appendix is unremarkable. No free fluid or free air is identified. The unenhanced vascular structures are unremarkable. No retroperitoneal or pelvic lymphadenopathy is seen. Degenerative changes are noted in the lumbar spine. CT/CT abdomen pelvis wo con IMPRESSION: 1. No acute findings identified in the chest, abdomen, or pelvis. 2. Hepatic steatosis.
--- NOTE | 2020-11-19 01:04 | ED_ITS ---
HPI - General Adult General Chief complaint: General Medical Stated complaint: high bp Time Seen by Provider: 11/18/20 23:09 Source: patient Mode of arrival: ambulatory Limitations: no limitations History of Present Illness HPI narrative: 55-year-old female with a past medical history of morbid obesity, TEODORA on nightly CPAP, restrictive lung disease, GERD here with multiple complaints. Patient initially told the nurse at triage that she has been having high blood pressure for the last few days to week. She tells me that she is not here for this. She does me that she is here for generalized abdominal cramping with associated nausea, vomiting and diarrhea. She tells me that she has had these symptoms for months. She was taking a medication which she believes was Bentyl which significantly helped her symptoms. She ran out of this medicine. She tells me that she has 4-5 episodes of diarrhea today. Not black or bloody. Vomiting after eating NBNB. She is also complaining of some generalized chest pain which she has had since waking this morning which she describes as burning. Pain is associated with her abdominal pain. She tells me she has shortness of breath and cough which is chronic for her and not worsened from baseline. No leg pain or swelling. Onset (ago): week(s) Location: chest and abdomen Radiation: non-radiation Quality: burning Pain Consistency: intermittent Relieving factors: none Exacerbating factors: none Associated symptoms: nausea/vomiting Treatments prior to arrival: none Related Data Home Medications Medication Instructions Recorded Confirmed fluticasone propionate 110 1 puff INHALATION QID g 09/23/20 mcg/actuation HFA aerosol inhaler fluticasone propionate 50 1 spray INTRANASAL DAILY 09/23/20 mcg/actuation nasal spray,suspension hydroxyzine pamoate 25 mg capsule 25 mg PO TID 09/23/20 ipratropium 20 mcg-albuterol 100 1 puff INHALATION QID 09/23/20 mcg/actuation mist for inhalation loratadine-pseudoephedrine ER 10 1 tab PO DAILY 09/23/20 mg-240 mg tablet,extended [id number] omeprazole 20 mg capsule,delayed 20 mg PO DAILY 09/23/20 release Previous Rx's Medication Instructions Recorded albuterol sulfate 2 puff INHALATION Q6H PRN #18 g 09/04/20 benzonatate [Tessalon Perles] 100 mg PO TID PRN #15 cap 09/04/20 Allergies Allergy/AdvReac Type Severity Reaction Status Date / Time aspirin [ASPIRIN] Allergy Unknown RASH Verified 11/18/20 18:11 Review of Systems Review of Systems: Yes all other systems are reviewed and are negative Constitutional: Constitutional: Reports no additional constitutional complaints, Denies body ache(s), Denies chills, Denies fever(s), Denies headache(s) and Denies weakness Eyes: Eyes: Reports no additional eye complaints and Denies change in vision ENT: Reports system reviewed and no additional complaints, except as documented, Denies dizziness, Denies headache(s), Denies nasal congestion, Denies nasal discharge and Denies neck pain Cardiovascular: Cardiovascular: Reports no additional cardiovascular complaints, Reports chest pain, Denies leg edema and Reports dyspnea (Chronic) Respiratory: Respiratory: Reports no additional respiratory complaints, Reports cough (Chronic) and Reports dyspnea (Chronic) Gastrointestinal: Gastrointestinal: Reports no additional gastrointestinal complaints, Reports abdominal pain, Denies melena, Denies hematochezia, Reports diarrhea, Reports nausea and Reports vomiting Genitourinary: Genitourinary: Reports no additional female genitourinary complaints and Denies urinary incontinence Musculoskeletal: Musculoskeletal: Reports no additional musculoskeletal complaints, Denies back pain, Denies arthralgias, Denies joint swelling, Denies neck pain, Denies numbness and Denies tingling Integumentary/Breasts: Skin/Breast: Reports system reviewed and no additional complaints, except as docu and Denies rash Neurologic: Reports system reviewed and no additional complaints, except as documented, Denies Abnormal speech present, Denies dizziness, Denies headache(s ), Denies numbness, Denies tingling and Denies weakness [facility] Past Medical History Attestation statement: The following information was validated with the patient. Source: old records reviewed and nursing notes reviewed Medical History Cough Morbid obesity Nocturnal hypoxemia due to primary pulmonary hypertension TEODORA (obstructive sleep apnea) Restrictive lung disease Social History Social History Alcohol intake: current Alcohol intake frequency: a few times a week Alcohol type: hard liquor Smoking Status: Never smoker Advance Directives: No Advance Directives Information Provided: No Physical Exam Vital Signs: Vital Signs: Last Vital Signs Temp 99.0 F 11/18/20 21:39 Pulse 87 11/18/20 23:01 Resp 16 11/18/20 23:01 BP 100/52 L 11/18/20 23:01 Pulse Ox 93 11/18/20 23:01 Body Mass Index 42.9 Const: Other: Obese General: cooperative Orientation/consciousness: patient oriented x3 Limitations: no limitations HENMT: Head: Yes normal to inspection Ears: hearing grossly normal bilaterally General nose exam: Normal external nose present Face and sinus: Yes normal facial exam Mouth: Normal oral and palatal mucosa present Throat: Yes posterior oropharynx normal Eyes: General: appearance normal, both eyes and all related structures Pupils: Equal, round and reactive pupils present Neck: Neck: Yes normal visual inspection Chest: Other: central chest tender to palp, improved Chest palpation & inspection: normal inspection of the chest Resp: Effort & Inspection: normal respiratory effort Auscultation: clear to auscultation bilaterally Cardio: Rate: regular rate Rhythm: regular rhythm Peripheral pulses: Peripheral pulses 2+ throughout GI: Inspection: Yes normal to inspection Palpation (GI): Soft to palpation and Tenderness to palpation present (GI) (mild diffuse tenderness, no focal, no rebound or guarding ) Auscultation: normal bowel sounds Back/Spine/Pelvis: Thoracic/Lumbar Spine: thoracic and lumbar spine normal to inspection Skin: General skin exam: no rashes or lesions noted Neuro: General: patient oriented x3, no focal motor deficits and normal sensation to monofilament Cranial nerves: Yes Equal, round and reactive pupils present Cognition (Neuro): normal cognition Speech: No Abnormal speech present Gait exam (Neuro): Normal gait present Motor exam (neuro): 5/5 motor strength present throughout Extrem: General: Yes normal to inspection Course Course Course Narrative: 55-year-old female here with complaints of chest and abdominal pain with vomiting and diarrhea. She tells me that the abdominal pain, vomiting and diarrhea has been there for quite some time. However this morning she woke chest discomfort which is worsened with position changes. Shortness of breath and cough at baseline. Will check labs, EKG, UA. 0130-lab show leukocytosis w/mild shift. May be secondary to vomiting. However will check blood cultures and lactic acid. Chemistry show an acute kidney injury. Hypokalemia and hypomagnesemia. Likely secondary to GI losses. Replacement ordered. Initial troponin mildly elevated but repeat unchanged. Likely secondary to elevated creatinine. Patient is obese. [place] body weight of 54kg used for total fluids 1636. Imaging of abdomen and chest ordered. 0200-sign out to Dr Romero pending above. Medical Decision Making MDM Narrative Medical decision making narrative: Gastroenteritis,, pancreatitis, choleli thiasis versus cholecystitis, ACS, Electrolyte abnormality Medical Records Medical records reviewed: Yes I reviewed the patient's medical records. Lab Data Lab results reviewed: Yes I reviewed the patient's lab results. Result diagrams: 11/18/20 20:25 11/18/20 20:25 Labs: Lab Results 11/18/20 11/18/20 11/18/20 Range/Units 20:25 20:25 20:25 WBC 14.7 H (4.8-10.8) X10*3/uL RBC 4.91 D (4.20-5.50) X10*6/uL Hgb 14.9 D (12.0-16.0) g/dl Hct 42.3 (37-47) % MCV 86.2 (80-98) fL MCH 30.3 (27.0-33.0) pg MCHC 35.2 H (31.0-35.0) g/dl RDW 13.9 (11.0-16.0) % Plt Count 230 (160-400) X10*3/uL MPV 10.8 (9.4-12.3) fL Immature Gran % (Auto) 0.4 (0.0-0.4) % Neut % (Auto) 81.7 H (45-73) % Lymph % (Auto) 9.8 L (20-40) % [place] % (Auto) 6.8 (2-11) % Eos % (Auto) 1.0 (0-4) % Baso % (Auto) 0.3 (0-2) % Lymph # (Auto) 1.4 (1.2-4.9) X10*3/uL [place] # (Auto) 1.0 (0.1-1.2) X10*3/uL Eos # (Auto) 0.2 (0.0-0.4) X10*3/uL Baso # (Auto) 0.1 (0.0-0.2) X10*3/uL Abs Immat Gran (auto) 0.06 H (0.00-0.03) X10*3/uL Absolute Neuts (auto) 12.0 H (2.0-8.3) X10*3/uL Absolute Nucleated RBC 0.020 H (0.0-0.012) X10*3/uL Nucleated RBC % (auto) 0.1 (0.0-0.2) /100WBC ESR (0-20) MM/HR Hold Blue Top SEE NOTE Sodium 136 (135-145) mmol/L Potassium 2.7 L D (3.3-5.1) mmol/l Chloride 90 L (96-108) mmol/L Carbon Dioxide 27 (22-29) mmol/L Anion Gap 22 H (12-20) BUN 21 H D (9-16) mg/dL Creatinine 2.27 H (0.5-1.4) mg/dL Estim Creat Clear Calc 34.9 Estimated GFR 22 Random Glucose 129 H D (60-115) mg/dL Lactic Acid (0.5-2.0) mmol/L Calcium 8.6 (8.4-10.2) mg/dL Magnesium 1.5 L (1.6-2.6) mg/dL Total Bilirubin 1.5 H (0.0-1.0) mg/dL Direct Bilirubin 0.6 H (0.0-0.5) mg/dL AST 57 H (5-31) U/L ALT 40 H (0-31) U/L Alkaline Phosphatase 310 H D (39-117) U/L Total Creatine Kinase 146 H (26-140) U/L Troponin I High Sens (<3.5-17.0) ng/L C-Reactive Protein 0.52 H (< or = 0.50) mg/dL Total Protein 6.9 (6.5-8.0) g/dL Albumin 4.0 (3.5-5.0) g/dL Lipase 39 (8-78) U/L Ethyl Alcohol mg/dL COVID-19 (POP) (Negative) COVID-19 Clin Com 11/18/20 11/18/20 11/18/20 Range/Units 20:25 23:58 23:58 WBC (4.8-10.8) X10*3/uL RBC (4.20-5.50) X10*6/uL Hgb (12.0-16.0) g/dl Hct (37-47) % MCV (80-98) fL MCH (27.0-33.0) pg MCHC (31.0-35.0) g/dl RDW (11.0-16.0) % Plt Count (160-400) X10*3/uL MPV (9.4-12.3) fL Immature Gran % (Auto) (0.0-0.4) % Neut % (Auto) (45-73) % Lymph % (Auto) (20-40) % [place] % (Auto) (2-11) % Eos % (Auto) (0-4) % Baso % (Auto) (0-2) % Lymph # (Auto) (1.2-4.9) X10*3/uL [place] # (Auto) (0.1-1.2) X10*3/uL Eos # (Auto) (0.0-0.4) X10*3/uL Baso # (Auto) (0.0-0.2) X10*3/uL Abs Immat Gran (auto) (0.00-0.03) X10*3/uL Absolute Neuts (auto) (2.0-8.3) X10*3/uL Absolute Nucleated RBC (0.0-0.012) X10*3/uL Nucleated RBC % (auto) (0.0-0.2) /100WBC ESR (0-20) MM/HR Hold Blue Top Sodium (135-145) mmol/L Potassium (3.3-5.1) mmol/l Chloride (96-108) mmol/L Carbon Dioxide (22-29) mmol/L Anion Gap (12-20) BUN (9-16) mg/dL Creatinine (0.5-1.4) mg/dL Estim Creat Clear Calc Estimated GFR Random Glucose (60-115) mg/dL Lactic Acid (0.5-2.0) mmol/L Calcium (8.4-10.2) mg/dL Magnesium (1.6-2.6) mg/dL Total Bilirubin (0.0-1.0) mg/dL Direct Bilirubin (0.0-0.5) mg/dL AST (5-31) U/L ALT (0-31) U/L Alkaline Phosphatase (39-117) U/L Total Creatine Kinase (26-140) U/L Troponin I High Sens 20.4 H D 28.9 H (<3.5-17.0) ng/L C-Reactive Protein (< or = 0.50) mg/dL Total Protein (6.5-8.0) g/dL Albumin (3.5-5.0) g/dL Lipase (8-78) U/L Ethyl Alcohol mg/dL COVID-19 (POP) Negative (Negative) COVID-19 Clin Com See Note 11/18/20 11/19/20 11/19/20 Range/Units 23:58 01:47 01:47 WBC (4.8-10.8) X10*3/uL RBC (4.20-5.50) X10*6/uL Hgb (12.0-16.0) g/dl Hct (37-47) % MCV (80-98) fL MCH (27.0-33.0) pg MCHC (31.0-35.0) g/dl RDW (11.0-16.0) % Plt Count (160-400) X10*3/uL MPV (9.4-12.3) fL Immature Gran % (Auto) (0.0-0.4) % Neut % (Auto) (45-73) % Lymph % (Auto) (20-40) % [place] % (Auto) (2-11) % Eos % (Auto) (0-4) % Baso % (Auto) (0-2) % Lymph # (Auto) (1.2-4.9) X10*3/uL [place] # (Auto) (0.1-1.2) X10*3/uL Eos # (Auto) (0.0-0.4) X10*3/uL Baso # (Auto) (0.0-0.2) X10*3/uL Abs Immat Gran (auto) (0.00-0.03) X10*3/uL Absolute Neuts (auto) (2.0-8.3) X10*3/uL Absolute Nucleated RBC (0.0-0.012) X10*3/uL Nucleated RBC % (auto) (0.0-0.2) /100WBC ESR 1 (0-20) MM/HR Hold Blue Top Sodium (135-145) mmol/L Potassium (3.3-5.1) mmol/l Chloride (96-108) mmol/L Carbon Dioxide (22-29) mmol/L Anion Gap (12-20) BUN (9-16) mg/dL Creatinine (0.5-1.4) mg/dL Estim Creat Clear Calc Estimated GFR Random Glucose (60-115) mg/dL Lactic Acid 1.0 (0.5-2.0) mmol/L Calcium (8.4-10.2) mg/dL Magnesium (1.6-2.6) mg/dL Total Bilirubin (0.0-1.0) mg/dL Direct Bilirubin (0.0-0.5) mg/dL AST (5-31) U/L ALT (0-31) U/L Alkaline Phosphatase (39-117) U/L Total Creatine Kinase (26-140) U/L Troponin I High Sens (<3.5-17.0) ng/L C-Reactive Protein (< or = 0.50) mg/dL Total Protein (6.5-8.0) g/dL Albumin (3.5-5.0) g/dL Lipase (8-78) U/L Ethyl Alcohol < 10 mg/dL COVID-19 (POP) (Negative) COVID-19 Clin Com Imaging Data Chest x-ray: Attestation: I personally reviewed and interpreted this imaging study as follows: Radiologist's impression: [address] [id number] ReportSigned Patient: Josephine Noe LMR#: [id number]: [id number]:[id number]/Sex: 55 / FADM Date: 11/18/20Loc: [address]: Ordering Physician: Jose Guerrero MD Date of Service: 11/18/20 Procedure(s): XR chest 1V Accession Number(s): [id number] cc: Jose Guerrero MD~ EXAMINATION: XR CHEST CLINICAL INFORMATION: Chest pain. Discomfort. COMPARISON: Chest x-ray 09/03/2020 TECHNIQUE: Frontal view of the chest was obtained. 6:54 PM FINDINGS: No significant abnormality is noted involving the heart, lungs, mediastinum, bony thorax or soft tissues. XR/XR chest 1V IMPRESSION: Unremarkable examination. ECG Data Attestation: I personally reviewed and interpreted this ECG as follows: Interpretation: 1825-NSR rate 93, normal DE, normal qrs, prolonged 529 Discharge Plan Discharge Clinical Impression: Leukocytosis, Acute kidney injury, Acute hypokalemia, Hypomagnesemia Patient Disposition: Admitted As Inpatient Prescriptions: No Action benzonatate [Tessalon Perles] 100 mg capsule 100 mg PO TID PRN (Reason: cough) Qty: 15 RF: 0 albuterol sulfate 90 mcg/actuation HFA aerosol inhaler 2 puff inhalation Q6H PRN (Reason: shortness of breath or wheezing) Qty: 18 RF: 0 Flovent HFA 110 mcg/actuation HFA aerosol inhaler 1 puff inhalation QID RF: 0 Combivent Respimat 20-100 mcg/actuation mist 1 puff inhalation QID RF: 0 fluticasone propionate [Flonase Allergy Relief] 50 mcg/actuation spray,[employer] 1 spray intranasal DAILY RF: 0 omeprazole 20 mg capsule,delayed release(DR/EC) 20 mg PO DAILY RF: 0 loratadine-pseudoephedrine [Claritin-D 24 Hour] 10-240 mg tablet extended release 24 hr 1 tab PO DAILY RF: 0 hydroxyzine pamoate 25 mg capsule 25 mg PO TID RF: 0
[2020-11-19 01:17] LABS: Erythrocyte Sedimentation Rate 1 MM/HR (0-20)
[2020-11-19] MEDS: Potassium Chloride/H20 10 MEQ/100 ML PIGGYBACK 100 MEQ IV (01:53)
[2020-11-19] MEDS: 0.9 % Sodium Chloride 1,000 ML 999 ML IV (01:53)
[2020-11-19] MEDS: Magnesium Sulfate/H2O 2 GM/50 ML PIGGYBACK IV (02:01)
--- NOTE | 2020-11-19 02:02 | PC.NURSE ---
microfilm technician at bedside obtaining BCX and lactic. Second IV established, pt medicated per MAR with IVF, second bag of Potassium and Magnesium. Pt off to CT on hospital bed.
--- NOTE | 2020-11-19 02:03 | PC.NURSE ---
Pt unable to urinate at this time, denies difficulty urinating, states she has been urinating easily at home. Pt continues having diarrhea, asking for antidiarrheal medication. Provider aware.
[2020-11-19 02:14] LABS: Ethanol < 10 mg/dL
--- NOTE | 2020-11-19 02:17 | PC.NURSE ---
Security at bedside, changeover complete. UA obtained and sent.
[2020-11-19] MEDS: Loperamide HCl 2 MG CAPSULE PO (02:49)
--- NOTE | 2020-11-19 02:49 | PC.NURSE ---
Pt medicated with Imodium per request. Pt again reminded of pending order for urine sample, but states she still doesn't have to go after 2 liters of NS. Continue to monitor.
--- NOTE | 2020-11-19 02:59 | PC.NURSE ---
UA obtained and sent. Med Rec completed at bedside with pt, pt noted to be noncompliant with most medications. Pt resting in bed, continue to monitor.
[2020-11-19 03:43] LABS: Amphetamine Screen Urine Not Detected (Not Detect); Barbiturates, Urine Not Detected (Not Detect); Benzodiazepines Screen Urine Not Detected (Not Detect); Cannabinoid Screen Urine Not Detected (Not Detect); Cocaine Screen Urine Not Detected (Not Detect); Opiate Screen Urine POSITIVE (Not Detect); Phencyclidine Screen Urine Not Detected (Not Detect)
--- NOTE | 2020-11-19 04:05 | PC.NURSE ---
Pt continues having f episodes of diarrhea, no relief with Imodium, aware.
--- NOTE | 2020-11-19 04:06 | PC.NURSE ---
Pt continues having frequent episodes of diarrhea, reports no relief after Imodium, aware.
--- NOTE | 2020-11-19 05:40 | P.HPHOSP_ITS ---
History of Present Illness Date of Service: 11/19/20 Chief Complaint: Chest pain, abd pain, nausea, vomiting, diarrhea 55 year old woman with history of COPD/asthma, HTN, TEODORA not on CPAP presented with chest pain and ongoing GI symptoms noted in chief complaint. Was visiting family in [place] and on bus ride home deeloped chest pain. Stated the chest pain was bilateral and across lower part of the chest and seemed pleuritc at times and was only present for a day. Today had ongoing GI symptoms that included di arrhea and abd pain. She describes nausea and frequent vomiting and has had associated poor PO intake over several days as a result. Abd pain described as crampy. No fevers or chills. No chest pain currently. Some dyspnea reported with activity-noticeably with walking. No sick contacts. Review of Systems Constitutional: Constitutional: Reports poor appetite Comments: No fevers or chills. Eyes: Comments: No vision changes ENT: Comments: No sore throat Cardiovascular: Comments: Chest pain, bilateral, pleuritic. Respiratory: Comments: No cough. Some dyspnea with activity. Gastrointestinal: Comments: Nausea, vomiting, diarrhea noted. Abd pain noted in lower abdomen. Musculoskeletal: Comments: No complaints Neurologic: Comments: No weakness or numbness reported. Psychiatric: Comments: Not depressed Allergic/Immunologic: Comments: No rashe sor itch PMFSH Medical History Cough Morbid obesity Nocturnal hypoxemia due to primary pulmonary hypertension TEODORA (obstructive sleep apnea) Restrictive lung disease Functional capacity: independent ambulation Family history: reviewed and not pertinent Surgical History (Updated 11/19/20 @ 05:50 by Meek East MD) History of cholecystectomy Social History Alcohol intake: current Alcohol intake frequency: a few times a week Alcohol type: hard liquor Smoking Status: Never smoker Advance Directives: No Advance Directives Information Provided: No Meds Allergies Allergy/AdvReac Type Severity Reaction Status Date / Time aspirin [ASPIRIN] Allergy Unknown RASH Verified 11/18/20 18:11 Home Medications Medication Instructions Recorded Confirmed Type fluticasone propionate 110 1 puff INHALATION QID g 09/23/20 11/19/20 History mcg/actuation HFA aerosol inhaler fluticasone propionate 50 1 spray INTRANASAL DAILY 09/23/20 11/19/20 History mcg/actuation nasal spray,suspension hydroxyzine pamoate 25 mg capsule 25 mg PO TID 09/23/20 11/19/20 History ipratropium 20 mcg-albuterol 100 1 puff INHALATION QID 09/23/20 11/19/20 History mcg/actuation mist for inhalation loratadine-pseudoephedrine ER 10 1 tab PO DAILY 09/23/20 11/19/20 History mg-240 mg tablet,extended [id number] omeprazole 20 mg capsule,delayed 20 mg PO DAILY 09/23/20 11/19/20 History release Physical Exam Vital Signs and Narrative: Vital Signs: Last Vital Signs Temp 99.0 F 11/18/20 21:39 Pulse 91 11/19/20 02:25 Resp 16 11/19/20 04:39 BP 102/57 L 11/19/20 02:25 Pulse Ox 93 11/18/20 23:01 Body Mass Index 42.9 Const: General: cooperative, healthy appearing, comfortable, no acute distress and alert HENMT: Head: Yes normal to inspection General nose exam: Normal external no se present Face and sinus: Yes normal facial exam Mouth: Normal oral and palatal mucosa present Eyes: Other: Normal eyes-no scleral icterus or conjunctival injections Neck: Other: Supple without adenopathy Resp: Other: No insp crackles or exp wheezing heard;diminished breath sounds at lungbases. Effort & Inspection: normal respiratory effort and able to speak in complete sentences Cardio: Rate: regular rate Rhythm: regular rhythm Heart sounds: S1 normal heart sound present and S2 normal heart sound present GI: Other: Abdomen firm with hypoactive bowel sounds. Guarding and tenderness on palpation of right lower abdomen. No rebound tenderness. Back/Spine/Pelvis: Other: No CVA tenderness Skin: Other: No rashes or lesions Extrem: Other: No lower ext edema Psych: Other: Neither agitated nor anxious Results Labs CBC and Chem 7: 11/18/20 20:25 11/18/20 20:25 Labs: Laboratory Results - last 24 hr 11/18/20 11/18/20 11/18/20 20:25 20:25 20:25 MCV 86.2 MCH 30.3 MCHC 35.2 H RDW 13.9 Plt Count 230 MPV 10.8 Immature Gran % (Auto) 0.4 Neut % (Auto) 81.7 H Lymph % (Auto) 9.8 L [place] % (Auto) 6.8 Eos % (Auto) 1.0 Baso % (Auto) 0.3 Lymph # (Auto) 1.4 [place] # (Auto) 1.0 Eos # (Auto) 0.2 Baso # (Auto) 0.1 Abs Immat Gran (auto) 0.06 H Absolute Neuts (auto) 12.0 H Absolute Nucleated RBC 0.020 H Nucleated RBC % (auto) 0.1 ESR Hold Blue Top SEE NOTE Anion Gap 22 H Estim Creat Clear Calc 34.9 Estimated GFR 22 Random Glucose 129 H D Lactic Acid Calcium 8.6 Magnesium 1.5 L Total Bilirubin 1.5 H Direct Bilirubin 0.6 H AST 57 H ALT 40 H Alkaline Phosphatase 310 H D Total Creatine Kinase 146 H Troponin I High Sens C-Reactive Protein 0.52 H Total Protein 6.9 Albumin 4.0 Lipase 39 Urine Opiates Screen Ur Barbiturates Screen Ur Phencyclidine Scrn Ur Amphetamines Screen U Benzodiazepines Scrn Urine Cocaine Screen U Marijuana (THC) Screen Ethyl Alcohol COVID-19 (POP) COVID-Domain Apps 11/18/20 11/18/20 11/18/20 20:25 23:58 23:58 MCV MCH MCHC RDW Plt Count MPV Immature Gran % (Auto) Neut % (Auto) Lymph % (Auto) [place] % (Auto) Eos % (Auto) Baso % (Auto) Lymph # (Auto) [place] # (Auto) Eos # (Auto) Baso # (Auto) Abs Immat Gran (auto) Absolute Neuts (auto) Absolute Nucleated RBC Nucleated RBC % (auto) ESR Hold Blue Top Anion Gap Estim Creat Clear Calc Estimated GFR Random Glucose Lactic Acid Calcium Magnesium Total Bilirubin Direct Bilirubin AST ALT Alkaline Phosphatase Total Creatine Kinase Troponin I High Sens 20.4 H D 28.9 H C-Reactive Protein Total Protein Albumin Lipase Urine Opiates Screen Ur Barbiturates Screen Ur Phencyclidine Scrn Ur Amphetamines Screen U Benzodiazepines Scrn Urine Cocaine Screen U Marijuana (THC) Screen Ethyl Alcohol COVID-19 (POP) Negative COVID-Domain Apps See Note 11/18/20 11/19/20 11/19/20 23:58 01:47 01:47 MCV MCH MCHC RDW Plt Count MPV Immature Gran % (Auto) Neut % (Auto) Lymph % (Auto) [place] % (Auto) Eos % (Auto) Baso % (Auto) Lymph # (Auto) [place] # (Auto) Eos # (Auto) Baso # (Auto) Abs Immat Gran (auto) Absolute Neuts (auto) Absolute Nucleated RBC Nucleated RBC % (auto) ESR 1 Hold Blue Top Anion Gap Estim Creat Clear Calc Estimated GFR Random Glucose Lactic Acid 1.0 Calcium Magnesium Total Bilirubin Direct Bilirubin AST ALT Alkaline Phosphatase Total Creatine Kinase Troponin I High Sens C-Reactive Protein Total Protein Albumin Lipase Urine Opiates Screen Ur Barbiturates Screen Ur Phencyclidine Scrn Ur Amphetamines Screen U Benzodiazepines Scrn Urine Cocaine Screen U Marijuana (THC) Screen Ethyl Alcohol < 10 COVID[place]19 [place]POP[place] 11/19/20 02:54 MCV MCH MCHC RDW Plt Count MPV Immature Gran % (Auto) Neut % (Auto) Lymph % (Auto) [place] % (Auto) Eos % (Auto) Baso % (Auto) Lymph # (Auto) [place] # (Auto) Eos # (Auto) Baso # (Auto) Abs Immat Gran (auto) Absolute Neuts (auto) Absolute Nucleated RBC Nucleated RBC % (auto) ESR Hold Blue Top Anion Gap Estim Creat Clear Calc Estimated GFR Random Glucose Lactic Acid Calcium Magnesium Total Bilirubin Direct Bilirubin AST ALT Alkaline Phosphatase Total Creatine Kinase Troponin I High Sens C-Reactive Protein Total Protein Albumin Lipase Urine Opiates Screen POSITIVE H Ur Barbiturates Screen Not Detected Ur Phencyclidine Scrn Not Detected Ur Amphetamines Screen Not Detected U Benzodiazepines Scrn Not Detected Urine Cocaine Screen Not Detected U Marijuana (THC) Screen Not Detected Ethyl Alcohol COVID-19 (POP) COVID-Domain Apps Imaging Radiologist's Impressions: Impressions Chest X-Ray 11/18/20 18:43 IMPRESSION: Unremarkable examination. Abdomen/Pelvis CT 11/19/20 00:52 IMPRESSION: 1. No acute findings identified in the chest, abdomen, or pelvis. 2. Hepatic steatosis. Chest CT 11/19/20 00:52 IMPRESSION: 1. No acute findings identified in the chest, abdomen, or pelvis. 2. Hepatic steatosis. Assessment and Plan (1) Leukocytosis: Status: Acute (2) Acute kidney injury: Status: Acute (3) Acute hypokalemia: Status: Acute (4) Hypomagnesemia: Status: Acute 55 year old woman presenting with chest pain and nausea, vomiting, diarrhea and poor PO intake. Electrolyte abnormalities seen as well as acute kidney injury. Nausea, vomiting, diarrhea Likely viral gastroenteritis. CT abdomen is without acute findings. Tenderness in RLQ could be appendicitis. If persists or worsens would involve general debbie kari for evaluation. Caution with using Zofran as her QTc is already prolonged. Mild leukocytosis likely due to contraction from GI losses. Acute kidney injury Creatinine elevated over baseline. Hydrate and repeat AM labs. Hypokalemia, hypomagnesemia Likley due to GI losses. Repleted PO and IV. Repeat labs in AM. Chest pain Her Troponin does not show upward trend so doubt ACS. Likewise resolved. Monitoring on telemetry given her QTc interval was prolonged. Repeat EKG in AM to assess for closure. HTN hx States she takes Lisinopril but is not on her med list. Hold it acutely as her BP was lower and will continue to hydrate. COPD, asthma, TEODORA No exacerbation. Can continue Combivent prn if she becomes symptomatic. Is not on CPAP presently for her TEODORA. DVT proph SC heparin. Code status: Full code
--- NOTE | 2020-11-19 05:52 | PC.NURSE ---
donor services technician to obtain AM labs.
[2020-11-19 06:34] LABS: Glucose Urine UA NEG (NEG); Leukocyte Esterase Urine NEG (NEG); Nitrite Urine NEG (NEG); Specific Gravity - Urine >= 1.030 (1.005-1.025); Urine Blood 1+ (NEG); Urine Ketones 5 MG/DL (NEG); Urine Protein 1+ MG/DL (NEG-TRACE)
[2020-11-19 06:43] LABS: Appearance Urine HAZY; Color Urine DARK YELLOW
--- NOTE | 2020-11-19 06:46 | PC.NURSE ---
Covid swab obtained and sent. POC and INR obtained. EKG to be obtained upon return from CT.
[2020-11-19 06:52] LABS: UACC CULT YES
[2020-11-19] MEDS: 0.9 % Sodium Chloride 1,000 ML 100 ML IVCONT ×2 (06:52→18:04)
[2020-11-19 06:53] LABS: Bacteria Urine 3+ /LPF; Epith (RTE) Cast 0-2 /LPF; Mucus Urine TRACE /LPF; RBC Urine 0-2 /HPF (0); Renal Epithelial Cells Urine TRACE /LPF; Squamous Epithelial Cell Urine 2+ /LPF
[2020-11-19 07:16] LABS: Alanine Aminotransferase 31 U/L (0-31); Albumin Level 3.5 g/dL (3.5-5.0); Alkaline Phosphatase 242 U/L (39-117); Anion Gap 18 (12-20); Aspartate Amino Transferase 40 U/L (5-31); Bilirubin Direct 0.5 mg/dL (0.0-0.5); Bilirubin Total 0.9 mg/dL (0.0-1.0); Blood Urea Nitrogen 24 mg/dL (9-16); Calcium 7.9 mg/dL (8.4-10.2); Carbon Dioxide 24 mmol/L (22-29); Chloride 95 mmol/L (96-108); Creatinine Clr Calc Pharmacy 30.9; Estimated Glomerular Filt Rate 19; Glucose Random 113 mg/dL (60-115); Potassium 3.3 mmol/l (3.3-5.1); Sodium 134 mmol/L (135-145)
[2020-11-19 07:39] LABS: MANUAL DIFF FLAG NO
[2020-11-19 07:44] LABS: Basophils Percent Auto 0.3 % (0-2); Eosinophils Absolute Auto 0.3 X10*3/uL (0.0-0.4); Eosinophils Percent Auto 2.2 % (0-4); Hematocrit 38.1 % (37-47); Imm Gran Abs Auto 0.04 X10*3/uL (0.00-0.03); Imm Gran Pct Auto 0.3 % (0.0-0.4); Lymphocytes Absolute Auto 1.7 X10*3/uL (1.2-4.9); Lymphocytes Percent Auto 12.6 % (20-40); Mean Corpuscular HGB Conc 34.1 g/dl (31.0-35.0); Mean Corpuscular Hemoglobin 30.7 pg (27.0-33.0); Mean Corpuscular Volume 89.9 fL (80-98); Mean Platelet Volume 10.6 fL (9.4-12.3); Monocytes Percent Auto 7.1 % (2-11); Neutrophils Absolute Auto 10.7 X10*3/uL (2.0-8.3); Neutrophils Percent Auto 77.5 % (45-73); Platelet Count 171 X10*3/uL (160-400); Red Blood Count 4.24 X10*6/uL (4.20-5.50); Red Cell Distribution Width 14.4 % (11.0-16.0); White Blood Count 13.8 X10*3/uL (4.8-10.8)
[2020-11-19] MEDS: Heparin Sodium,Porcine 5,000 UNIT/ML VIAL 5000 UNIT SUBCUT ×2 (07:50→20:36)
[2020-11-19] MEDS: 0.9 % Sodium Chloride Flush 3 ML SYRINGE IVFLUSH (07:56)
[2020-11-19 08:04] LABS: Anion Gap 19 (12-20); Blood Urea Nitrogen 24 mg/dL (9-16); Calcium 7.9 mg/dL (8.4-10.2); Carbon Dioxide 24 mmol/L (22-29); Chloride 96 mmol/L (96-108); Creatinine Clr Calc Pharmacy 29.5; Estimated Glomerular Filt Rate 18; Glucose Random 115 mg/dL (60-115); Magnesium 2.4 mg/dL (1.6-2.6); Potassium 3.2 mmol/l (3.3-5.1); Sodium 136 mmol/L (135-145)
[2020-11-19] MEDS: Acetaminophen 325 MG TABLET 650 MG PO (08:26)
[2020-11-19] MEDS: Fluticasone Propionate Nasal 16 GM SPRAY 1 SPRAY NOSTRIL-B (08:26)
[2020-11-19] MEDS: Loratadine 10 MG TABLET PO (08:26)
[2020-11-19] MEDS: Omeprazole 20 MG CAPSULE.DR PO (08:27)
--- NOTE | 2020-11-19 12:48 | MHC.CM.PN ---
pt lives alone in apt. she reports that she is independent in her care. she will provide her own transport home at dc. pt denies the need for vna at dc. dc plan is home no svcs. cm to cont. to follow.
[2020-11-19] MEDS: Albuterol/Iprat 2.5/0.5MG 3 ML AMPUL.NEB INHALE ×2 (14:54→20:08)
--- NOTE | 2020-11-19 17:37 | PM.CNNEP ---
History of Present Illness Reason for Consult Consult date: 11/19/20 Reason for consult: Bhanu Chief Complaint Chief complaint: NAUSEA,ABD PAIN,DIARRHEA History of Present Illness Narrative: 55 y/o wf adm with severe watery dirrhea dehydration Bhanu and hypoK. She denies any h/O kdieny probs. She did note decr UOP past 1-2 days now incr with iVF. No fever/chills. normally on garrett-i which now has been d/c'd. Review of Systems Review of Systems Yes all other systems are reviewed and are negative Constitutional: Reports no additional constitutional complaints, Denies body ache(s), Denies chills, Denies fever(s), Denies headache(s), Reports poor appetite and Denies weakness Eyes: Reports no additional eye complaints and Denies change in vision Reports system reviewed and no additional complaints, except as documented, Denies dizziness, Denies headache(s), Denies nasal congestion, Denies nasal discharge and Denies neck pain Cardiovascular: Reports no additional cardiovascular complaints, Reports chest pain, Denies leg edema and Reports dyspnea (Chronic) Respiratory: Reports no additional respiratory complaints, Reports cough (Chronic) and Reports dyspnea (Chronic) Gastrointestinal: Reports no additional gastrointestinal complaints, Reports abdominal pain, Denies melena, Denies hematochezia, Reports diarrhea, Reports nausea and Reports vomiting Musculoskeletal: Reports no additional musculoskeletal complaints, Denies back pain, Denies arthralgias, Denies joint swelling, Denies neck pain, Denies numbness and Denies tingling Skin/Breast: Reports system reviewed and no additional complaints, except as docu and Denies rash Reports system reviewed and no additional complaints, except as documented, Denies Abnormal speech present, Denies dizziness, Denies headache(s), Denies numbness, Denies tingling and Denies weakness PMFSH Past Medical History Medical History Cough Morbid obesity Nocturnal hypoxemia due to primary pulmonary hypertension TEODORA (obstructive sleep apnea) Restrictive lung disease Functional capacity: independent ambulation Family History Family history: reviewed and not pertinent Surgical History Surgical History (Updated 11/19/20 @ 05:50 by Meek East MD) History of cholecystectomy Social History Social History Household Members: Friend(s) Housing: House Alcohol intake: current Alcohol intake frequency: a few times a week Alcohol type: hard liquor Smoking Status: Never smoker Use of substances other than those prescribed or required for medical reasons: No Advance Directives: No Advance Directives Information Provided: No Do you have thoughts of harming others: None Recently lost weight without trying: No service: No Current occupational status: unemployed Meds Allergies Allergy/AdvReac Type Severity Reaction Status Date / Time aspirin [ASPIRIN] Allergy Unknown RASH Verified 11/18/20 18:11 Home Medications Medication Instructions Recorded Confirmed Type fluticasone propionate 110 2 puff INHALATION BID g 09/23/20 11/19/20 History mcg/actuation HFA aerosol inhaler fluticasone propionate 50 1 spray INTRANASAL DAILY 09/23/20 11/19/20 History mcg/actuation nasal spray,suspension hydroxyzine pamoate 25 mg capsule 25 mg PO TID PRN 09/23/20 11/19/20 History ipratropium 20 mcg-albuterol 100 1 puff INHALATION QID 09/23/20 11/19/20 History mcg/actuation mist for inhalation loratadine-pseudoephedrine ER 10 1 tab PO DAILY 09/23/20 11/19/20 History mg-240 mg tablet,extended [id number] omeprazole 20 mg capsule,delayed 20 mg PO DAILY 09/23/20 11/19/20 History release lisinopril 40 mg PO DAILY 11/19/20 11/19/20 History Physical Exam Vital Signs: Last Vital Signs Temp 98.1 F 11/19/20 13:41 Pulse 82 11/19/20 14:56 Resp 17 11/19/20 13:41 BP 134/48 L 11/19/20 13:41 Pulse Ox 93 11/19/20 13:41 Body Mass Index 42.9 Const Other: Obese General: cooperative, healthy appearing, comfortable, no acute distress and alert Orientation/consciousness: patient oriented x3 Limitations: no limitations HENMT Head: Yes normal to inspection Ears: hearing grossly normal bilaterally General nose exam: Normal external nose present Face and sinus: Yes normal facial exam Mouth: Normal oral and palatal mucosa present Throat: Yes posterior oropharynx normal Eyes Other: Normal eyes-no scleral icterus or conjunctival injections General: appearance normal, both eyes and all related structures Pupils: Equal, round and reactive pupils present Neck Other: Supple without adenopathy Neck: Yes normal visual inspection Chest Other: central chest tender to palp, improved Chest palpation & inspection: normal inspection of the chest Resp Other: No insp crackles or exp wheezing heard;diminished breath sounds at lungbases. Effort & Inspection: normal respiratory effort and able to speak in complete sentences Auscultation: clear to auscultation bilaterally Cardio Other: Obese Rate: regular rate Rhythm: regular rhythm Heart sounds: S1 normal heart sound present and S2 normal heart sound present Peripheral pulses: Peripheral pulses 2+ throughout GI Other: Abdomen firm with hypoactive bowel sounds. Guarding and tenderness on palpation of right lower abdomen. No rebound tenderness. Inspection: Yes normal to inspection Palpation (GI): Soft to palpation and Tenderness to palpation present (GI) (mild diffuse tenderness, no focal, no rebound or guarding ) Auscultation: normal bowel sounds Back/Spine/Pelvis Other: No CVA tenderness Thoracic/Lumbar Spine: thoracic and lumbar spine normal to inspection Skin Other: No rashes or lesions General skin exam: no rashes or lesions noted Neuro General: patient oriented x3, no focal motor deficits and normal sensation to monofilament Cranial nerves: Yes Equal, round and reactive pupils present Cognition (Neuro): normal cognition Speech: No Abnormal speech present Gait exam (Neuro): Normal gait present Motor exam (neuro): 5/5 motor strength present throughout Extrem Other: No lower ext edema General: Yes normal to inspection Psych Other: Neither agitated nor anxious Results Lab Results Result Diagrams: 11/19/20 07:31 11/19/20 07:31 Lab results: Chemistry 11/18/20 11/19/20 11/19/20 20:25 06:01 07:31 Sodium 136 134 L 136 Potassium 2.7 L D 3.3 D 3.2 L Carbon Dioxide 27 24 24 BUN 21 H D 24 H 24 H Creatinine 2.27 H 2.57 H 2.69 H Calcium 8.6 7.9 L D 7.9 L Hematology 11/18/20 11/19/20 20:25 07:31 WBC 14.7 H 13.8 H Hgb 14.9 D 13.0 Plt Count 230 171 D Urinalysis 11/19/20 06:01 Urine Color DARK YELLOW Urine Appearance HAZY Urine pH 5.0 Ur Specific Council >= 1.030 H Urine Protein 1+ H Urine Glucose (UA) NEG Urine Ketones 5 Urine Blood 1+ H Urine Nitrite NEG Ur Leukocyte Esterase NEG Urine RBC 0-2 Urine WBC 5-9 H Ur Squamous Epith Cells 2+ Hyaline Casts 1-4 Assessment and Plan (1) Leukocytosis: Status: Acute (2) Acute kidney injury: Status: Acute (3) Acute hypokalemia: Status: Acute (4) Hypomagnesemia: Status: Acute 55 year old woman presenting with chest pain and nausea, vomiting, diarrhea and poor PO intake dehydration BHANU, hypok 1. BHANU: most c/w pre-renal from dehydration based on her presentation BUT lack of incr BUN to Cr ratio and fact that SCr has not decr despite IVF raises cocnern for alternative cause for BHANU; acute OBS r/o by CT w/o obs AGN and AIN both possibilities given abnl UA PLT count normal makes a TMA like HUS unlikley ATN due to ischemia seems less likely given lack of documented hypotension 2. Severe hypokalemia: dehydration can be assoc with incr smita and urine k losses; alternatively AIN 3. n/v/diarrhea; w/u in progress REC; cont IVF and proceed with sero/urine studies, if renal func worsens may need a kidney Bx
[2020-11-19] MEDS: Potassium Chloride ER 20 MEQ TAB.ER.PRT 40 MEQ PO (18:03)
[2020-11-19 20:04] LABS: Anion Gap 19 (12-20); Blood Urea Nitrogen 25 mg/dL (9-16); Carbon Dioxide 26 mmol/L (22-29); Chloride 94 mmol/L (96-108); Creatinine Clr Calc Pharmacy 25.9; Estimated Glomerular Filt Rate 16; Phosphorus 2.7 mg/dL (2.7-4.5); Potassium 3.1 mmol/l (3.3-5.1); Sodium 136 mmol/L (135-145)
[2020-11-19] MEDS: PHENobarb/Hyoscy/Atropine/Scop 10 ML ELIXIR PO ×2 (20:30)
[2020-11-20] VITALS (9 sets, daily range): BP systolic 100–117; BP diastolic 41–54; PULSE 85–93; RESP 17–18; TEMP 36.2–37.1; O2SAT 90–96; BMI 42.9
[2020-11-20] MEDS: oxyCODONE HCl Immed Release 5 MG TABLET PO (00:19)
[2020-11-20] MEDS: 0.9 % Sodium Chloride 1,000 ML 100 ML IVCONT ×3 (03:57→23:36)
[2020-11-20] MEDS: Heparin Sodium,Porcine 5,000 UNIT/ML VIAL 5000 UNIT SUBCUT (05:39)
[2020-11-20 06:55] LABS: Hematocrit 35.2 % (37-47); Hemoglobin 11.4 g/dl (12.0-16.0); Mean Corpuscular HGB Conc 32.4 g/dl (31.0-35.0); Mean Corpuscular Hemoglobin 30.6 pg (27.0-33.0); Mean Corpuscular Volume 94.4 fL (80-98); Mean Platelet Volume 11.4 fL (9.4-12.3); Platelet Count 150 X10*3/uL (160-400); Red Blood Count 3.73 X10*6/uL (4.20-5.50); Red Cell Distribution Width 14.8 % (11.0-16.0)
[2020-11-20 07:12] LABS: Anion Gap 14 (12-20); Blood Urea Nitrogen 26 mg/dL (9-16); Calcium 7.8 mg/dL (8.4-10.2); Carbon Dioxide 26 mmol/L (22-29); Chloride 98 mmol/L (96-108); Creatinine Clr Calc Pharmacy 27.2; Estimated Glomerular Filt Rate 17; Glucose Random 94 mg/dL (60-115); Potassium 3.3 mmol/l (3.3-5.1); Sodium 135 mmol/L (135-145)
[2020-11-20] MEDS: Albuterol/Iprat 2.5/0.5MG 3 ML AMPUL.NEB INHALE ×3 (07:22→19:55)
[2020-11-20 09:08] LABS: HBc Num1 0.06 S/CO (0.00-0.79); HBsAGNum1 0.21 S/CO (0.00-0.99); Hepatitis B Core Antibody Nonreactive (Nonreactive); Hepatitis B Surface Antigen Negative (Negative); ~HepC Num1 0.05 S/CO (0.00-0.79); ~Hepatitis C Antibody Nonreactive (Nonreactive)
[2020-11-20 09:26] LABS: HBS Num1 69.45 mIU/mL (0-7.99); ~Hepatitis B Surface Antibody REACTIVE (Nonreactive)
[2020-11-20] MEDS: 0.9 % Sodium Chloride Flush 3 ML SYRINGE IVFLUSH (10:40)
[2020-11-20] MEDS: Fluticasone Propionate Nasal 16 GM SPRAY 1 SPRAY NOSTRIL-B (10:40)
[2020-11-20 11:08] LABS: Creatinine Urine 286.32 mg/dL
[2020-11-20 11:09] LABS: EOS Counted 0 CELLS; EOS QC POS YES; EOS Stain Quality OK YES; WBC, Counted 100 CELLS
--- NOTE | 2020-11-20 12:22 | P.PNIM_ITS ---
Subjective Subjective Date of Service: 11/20/20 Interval History: the patient was seen and evaluated this morning Laying in bed, feels comfortable overall, no more N\V\D Denies any fever, chills or shortness of breath No reported other overnight events. Systemic review: No fever, chills or weakness No chest pain, palpitation No shortness of breath or coughing Colicky left sided abdominal pain, no nausea or vomiting No urinary symptoms No any rash or wounds Physical Exam Vital Signs: Vital Signs: Last Vital Signs Temp 98.3 F 11/20/20 11:51 Pulse 91 11/20/20 11:51 Resp 18 11/20/20 11:51 BP 117/53 L 11/20/20 11:51 Pulse Ox 95 11/20/20 11:51 Body Mass Index 42.9 Const: Other: Constitutional : Alert, oriented, not in distress Neck : Normal inspection, Supple Cardiovascular : RRR, S1 S2, no lower extremity edema Respiratory : Good bilateral air entry, no crackles, wheezes or rhonchi Gastrointestinal: soft, lax, Normal bowel sounds, mild left sided tenderness with deep palpation, no surgical sign. Skin : Warm/Dry, No rash Neurological : Alert & oriented x3, No focal deficit Objective Data Current Medications Generic Name Dose Route Start Last Admin Trade Name Freq PRN Reason Stop Dose Admin Acetaminophen 650 mg 11/19/20 08:03 11/19/20 08:26 Acetaminophen 325 Mg Tablet PO 650 mg Q6H PRN Administration Pain, Mild (Pain Scale 1-3) Albuterol/Ipratropium 3 ml 11/19/20 08:00 11/20/20 07:22 Albuterol/Iprat 2.5/0.5mg 3 Ml Ampul.Neb INHALE 3 ml RQ6H WHILE AWAKE ZOHAIB Administration Belladonna Alkaloids/Phenobarbital 10 ml 11/19/20 18:12 11/19/20 20:30 Phenobarb/Hyoscy/Atropine/Scop 10 Ml Elixir PO 10 ml QID PRN Administration Pain, Moderate (Pain Scale 4-6 Fluticasone Propionate 1 spray 11/19/20 09:00 11/20/20 10:40 Fluticasone Propionate Nasal 16 Gm [place] NOSTRIL-B 1 spray DAILY ZOHAIB Administration Heparin Sodium (Porcine) 5,000 unit 11/19/20 06:30 11/20/20 05:39 Heparin Sodium,Porcine 5,000 Unit/Ml Vial SUBCUT 5,000 unit Q8H [facility] Administration Hydroxyzine HCl 25 mg 11/19/20 07:41 Hydroxyzine Hcl 25 Mg Tablet PO TID PRN anxiety/restlessness Sodium Chloride 1,000 mls @ 100 mls/hr 11/19/20 06:30 11/20/20 03:57 Ns IVCONT 100 mls/hr .Q10H ZOHAIB Administration Loperamide HCl 2 mg 11/19/20 18:09 Loperamide Hcl 2 Mg Capsule PO Q4H PRN Diarrhea Loratadine 10 mg 11/19/20 09:00 11/20/20 10:03 Loratadine 10 Mg Tablet PO Not Given DAILY [facility] Morphine Sulfate 2 mg 11/19/20 23:54 Morphine Sulfate 2 Mg/Ml Cartridge IVPUSH Q4H PRN Pain, Severe (Pain Scale 7-10) Omeprazole 20 mg 11/19/20 09:00 11/20/20 10:03 Omeprazole 20 Mg Capsule.Dr PO Not Given DAILY [facility] Oxycodone HCl 5 mg 11/19/20 23:55 11/20/20 00:19 Oxycodone Hcl Immed Release 5 Mg Tablet PO 5 mg Q4H PRN Administration Pain, Severe (Pain Scale 7-10) Sodium Chloride 3 ml 11/19/20 08:00 11/20/20 10:40 0.9 % Sodium Chloride Flush 3 Ml Syringe IVFLUSH 3 ml QSHIFT [facility] Administration Labs CBC & Chem 7: 11/20/20 06:11 11/20/20 06:11 Microbiology Microbiology Results: Microbiology 11/19/20 00:00 Urine clean catch - Clean Catch Midstream Urine Culture - Preliminary Gram negative suleman 11/19/20 01:47 Blood - Venous Blood Culture - Preliminary No growth after 24 hours. 11/19/20 01:47 Blood - Venous Blood Culture - Preliminary No growth after 24 hours. Assessment and Plan (1) Leukocytosis: Status: Acute (2) Acute kidney injury: Status: Acute (3) Acute hypokalemia: Status: Acute (4) Hypomagnesemia: Status: Acute Assessment and Plan: 55 year old woman presenting with chest pain and nausea, vomiting, diarrhea and poor PO intake. Electrolyte abnormalities seen as well as acute kidney injury. Nausea, vomiting, diarrhea improved Likely viral gastroenteritis. CT abdomen showing no acute findings. advance diet as tolerated Acute kidney injury Likey 2/2 dehydration possible ATN? Nephrology input appreciated, AGN, AIN can not be excluded and might need Kidney biopsy if no improvement Serological studies sent Continue IVF monitor I\O and monitor BMP Keep NPO overnight for possible Kidney biopsy Hypokalemia, hypomagnesemia corrected Likley due to GI losses. Repleted PO and IV Chest pain No recurrence of pain Monitoring on telemetry given her QTc interval was prolonged Repeat EKG in AM to assess for closure. HTN hx Not on meds BP controlled, monitor COPD, asthma, TEODORA No exacerbation. Can continue Combivent prn if she becomes symptomatic. DVT proph SC heparin
--- NOTE | 2020-11-20 12:49 | P.PNNP_ITS ---
Subjective Subjective Date of Service: 11/20/20 Principal diagnosis: bhanu Interval history: Seen and examined. Events noted. No furhter N/V/Diarrhea Feeling better Not making htat much urine Physical Exam Vital Signs: Vital Signs: Last Vital Signs Temp 98.3 F 11/20/20 11:51 Pulse 91 11/20/20 11:51 Resp 18 11/20/20 11:51 BP 117/53 L 11/20/20 11:51 Pulse Ox 95 11/20/20 11:51 Body Mass Index 42.9 Const: General: cooperative, healthy appearing, comfortable, no acute distress and alert Orientation/consciousness: patient oriented x3 Limitations: no limitations HENMT: Head: Yes normal to inspection Ears: hearing grossly normal bilaterally General nose exam: Normal external nose present Face and sinus: Yes normal facial exam Mouth: Normal oral and palatal mucosa present Throat: Yes posterior oropharynx normal Eyes: General: appearance normal, both eyes and all related structures Pupils: Equal, round and reactive pupils present Neck: Neck: Yes normal visual inspection Chest: Chest palpation & inspection: normal inspection of the chest Resp: Effort & Inspection: normal respiratory effort and able to speak in complete sentences Auscultation: clear to auscultation bilaterally Cardio: Rate: regular rate Rhythm: regular rhythm Heart sounds: S1 normal heart sound present and S2 normal heart sound present Peripheral pulses: Peripheral pulses 2+ throughout GI: Inspection: Yes normal to inspection Palpation (GI): Soft to palpation and Tenderness to palpation present (GI) (mild diffuse tenderness, no focal, no rebound or guarding ) Auscultation: normal bowel sounds Back/Spine/Pelvis: Thoracic/Lumbar Spine: thoracic and lumbar spine normal to inspection Skin: General skin exam: no rashes or lesions noted Neuro: General: patient oriented x3, no focal motor deficits and normal sensation to monofilament Cranial nerves: Yes Equal, round and reactive pup ils present Cognition (Neuro): normal cognition Speech: No Abnormal speech present Gait exam (Neuro): Normal gait present Motor exam (neuro): 5/5 motor strength present throughout Extrem: General: Yes normal to inspection Objective Data Labs CBC & Chem 7: 11/20/20 06:11 11/20/20 06:11 Labs: Laboratory Results - last 24 hr 11/19/20 11/19/20 11/20/20 18:50 18:50 06:11 WBC 10.0 RBC 3.73 L Hgb 11.4 L Hct 35.2 L MCV 94.4 MCH 30.6 MCHC 32.4 RDW 14.8 Plt Count 150 L MPV 11.4 Absolute Nucleated RBC 0.000 Nucleated RBC % (auto) 0.0 Sodium 136 Potassium 3.1 L Chloride 94 L Carbon Dioxide 26 Anion Gap 19 BUN 25 H Creatinine 3.06 H Estim Creat Clear Calc 25.9 Estimated GFR 16 Random Glucose Uric Acid 11.0 H Calcium Phosphorus 2.7 Total Creatine Kinase 257 H D Urine Eosinophils % Ur Random Sodium Urine Creatinine Stool Leukocytes, Qual Hep Bs Antigen Negative Hep Bs Antibody REACTIVE Hep B Core Total Ab Nonreactive Hepatitis C Ab (EIA) Nonreactive 11/20/20 11/20/20 11/20/20 06:11 08:15 08:15 WBC RBC Hgb Hct MCV MCH MCHC RDW Plt Count MPV Absolute Nucleated RBC Nucleated RBC % (auto) Sodium 135 Potassium 3.3 Chloride 98 Carbon Dioxide 26 Anion Gap 14 BUN 26 H Creatinine 2.91 H Estim Creat Clear Calc 27.2 Estimated GFR 17 Random Glucose 94 Uric Acid Calcium 7.8 L Phosphorus Total Creatine Kinase Urine Eosinophils % 0.0 Ur Random Sodium Urine Creatinine Stool Leukocytes, Qual Cancelled Hep Bs Antigen Hep Bs Antibody Hep B Core Total Ab Hepatitis C Ab (EIA) 11/20/20 11/20/20 08:15 08:15 WBC RBC Hgb Hct MCV MCH MCHC RDW Plt Count MPV Absolute Nucleated RBC Nucleated RBC % (auto) Sodium Potassium Chloride Carbon Dioxide Anion Gap BUN Creatinine Estim Creat Clear Calc Estimated GFR Random Glucose Uric Acid Calcium Phosphorus Total Creatine Kinase Urine Eosinophils % Ur Random Sodium 77.0 Urine Creatinine Cancelled 286.32 Stool Leukocytes, Qual Hep Bs Antigen Hep Bs Antibody Hep B Core Total Ab Hepatitis C Ab (EIA) Microbiology Microbiology Results: Microbiology 11/19/20 00:00 Urine clean catch - Clean Catch Midstream Urine Culture - Preliminary Gram negative suleman 11/19/20 01:47 Blood - Venous Blood Culture - Preliminary No growth after 24 hours. 11/19/20 01:47 Blood - Venous Blood Culture - Preliminary No growth after 24 hours. Assessment & Plan Assessment and plan (1) Leukocytosis: Status: Acute (2) Acute kidney injury: Status: Acute (3) Acute hypokalemia: Status: Acute (4) Hypomagnesemia: Status: Acute Assessment and Plan: 55 year old woman presenting with chest pain and nausea, vomiting, diarrhea and poor PO intake dehydration BHANU, hypok 1. BHANU: etiol remains unclear and full sero w/u ordered and may need a kidney Bx for definitive Dx..will potentially do kidney Bx in am if SCr remains > 2.7 DDx of BHANU as previously allude to OBs: NO gvien neg hydro on CT Pre-renal: would expect incr UOP and imporved renal func and higher Bun/Cr ratio...stil a possibility AIN or AGN: definite considerations and sero oredered and poss Bx in am ATN: no obvious presicpitan but still a poss 2. HypoK: imorved with replacement 3. GI symptoms: resolving REC: sero as ordered. cont IVF; possibble kidney Bx in am...keep NPO after midnight, hold all a.c. or anti PLT meds Time Spent With Patient Time: Total time spent is greater than 50% in coordination of care (as documented) at patient's floor/unit and/or counseling patient:
[2020-11-20 16:09] LABS: Total Protein Urine Random 43 mg/dL (<12)
[2020-11-20] MEDS: Acetaminophen 325 MG TABLET 650 MG PO (20:57)
[2020-11-20] MEDS: Benzonatate 100 MG CAPSULE PO (23:36)
[2020-11-21] VITALS (10 sets, daily range): BP systolic 123–156; BP diastolic 57–94; PULSE 80–90; RESP 16–20; TEMP 35.9–37; O2SAT 92–98
[2020-11-21] MEDS: Acetaminophen 325 MG TABLET 650 MG PO ×2 (06:01→20:10)
--- NOTE | 2020-11-21 06:42 | PC.NURSE ---
Patient woke c/o headache, sore throat, generalized body aches, congestion, and patient states my cough feels worse and I feel like I'm coming down with something . Hospitalist notified.
[2020-11-21 06:43] LABS: Hematocrit 37.7 % (37-47); Hemoglobin 11.9 g/dl (12.0-16.0); Mean Corpuscular HGB Conc 31.6 g/dl (31.0-35.0); Mean Corpuscular Hemoglobin 30.7 pg (27.0-33.0); Mean Corpuscular Volume 97.2 fL (80-98); Mean Platelet Volume 10.9 fL (9.4-12.3); Platelet Count 133 X10*3/uL (160-400); Red Blood Count 3.88 X10*6/uL (4.20-5.50); Red Cell Distribution Width 14.9 % (11.0-16.0); White Blood Count 6.5 X10*3/uL (4.8-10.8)
[2020-11-21 07:03] LABS: Anion Gap 19 (12-20); Blood Urea Nitrogen 20 mg/dL (9-16); Calcium 7.6 mg/dL (8.4-10.2); Carbon Dioxide 21 mmol/L (22-29); Chloride 103 mmol/L (96-108); Creatinine Clr Calc Pharmacy 70.8; Estimated Glomerular Filt Rate 51; Glucose Random 90 mg/dL (60-115); Potassium 3.5 mmol/l (3.3-5.1); Sodium 139 mmol/L (135-145)
[2020-11-21] MEDS: cefTRIAXone sodium 1 GM in 0.9 % Sodium Chloride 50 ML IV (08:56)
[2020-11-21] MEDS: 0.9 % Sodium Chloride Flush 3 ML SYRINGE IVFLUSH ×3 (08:57→23:56)
[2020-11-21] MEDS: Loratadine 10 MG TABLET PO (08:57)
[2020-11-21] MEDS: Omeprazole 20 MG CAPSULE.DR PO (08:57)
[2020-11-21] MEDS: Albuterol/Iprat 2.5/0.5MG 3 ML AMPUL.NEB INHALE ×3 (09:10→19:50)
[2020-11-21 09:56] LABS: COVID-19 Test Negative (Negative)
--- NOTE | 2020-11-21 11:22 | HO.PM.IMPN ---
Subjective Subjective Date of Service: 11/21/20 Interval History: the patient was seen and evaluated this morning Laying in bed, feels comfortable overall, complaining of body pain, nasal congestion and mild coughing no more N\V\D Denies any fever, chills or shortness of breath No reported other overnight events. Systemic review: No fever, chills or weakness No chest pain, palpitation No shortness of breath or coughing Colicky left sided abdominal pain, no nausea or vomiting No urinary symptoms No any rash or wounds Physical Exam Vital Signs: Vital Signs: Last Vital Signs Temp 97.7 F 11/21/20 07:37 Pulse 86 11/21/20 09:11 Resp 19 11/21/20 07:37 BP 123/58 L 11/21/20 07:37 Pulse Ox 92 11/21/20 07:37 Body Mass Index 42.9 Const: Other: Constitutional : Alert, oriented, not in distress Neck : Normal inspection, Supple Cardiovascular : RRR, S1 S2, no lower extremity edema Respiratory : Good bilateral air entry, no crackles, wheezes or rhonchi Gastrointestinal: soft, lax, Normal bowel sounds, mild left sided tenderness with deep palpation, no surgical sign. Skin : Warm/Dry, No rash Neurological : Alert & oriented x3, No focal deficit Objective Data Current Medications Generic Name Dose Route Start Last Admin Trade Name Freq PRN Reason Stop Dose Admin Acetaminophen 650 mg 11/19/20 08:03 11/21/20 06:01 Acetaminophen 325 Mg Tablet PO 650 mg Q6H PRN Administration Pain, Mild (Pain Scale 1-3) Albuterol/Ipratropium 3 ml 11/19/20 08:00 11/21/20 09:10 Albuterol/Iprat 2.5/0.5mg 3 Ml Ampul.Neb INHALE 3 ml RQ6H WHILE AWAKE ZOHAIB Administration Belladonna Alkaloids/Phenobarbital 10 ml 11/19/20 18:12 11/19/20 20:30 Phenobarb/Hyoscy/Atropine/Scop 10 Ml Elixir PO 10 ml QID PRN Administration Pain, Moderate (Pain Scale 4-6 Fluticasone Propionate 1 spray 11/19/20 09:00 11/21/20 08:59 Fluticasone Propionate Nasal 16 Gm [place] NOSTRIL-B Not Given DAILY ZOHAIB Hydroxyzine HCl 25 mg 11/19/20 07:41 Hydroxyzine Hcl 25 Mg Tablet PO TID PRN anxiety/restlessness Ceftriaxone Sodium 1 gm/ 50 mls @ 100 mls/hr 11/21/20 07:30 11/21/20 10:05 Sodium Chloride IV Infused Q24H [facility] Infusion Loperamide HCl 2 mg 11/19/20 18:09 Loperamide Hcl 2 Mg Capsule PO Q4H PRN Diarrhea Loratadine 10 mg 11/19/20 09:00 11/21/20 08:57 Loratadine 10 Mg Tablet PO 10 mg DAILY [facility] Administration Morphine Sulfate 2 mg 11/19/20 23:54 Morphine Sulfate 2 Mg/Ml Cartridge IVPUSH Q4H PRN Pain, Severe (Pain Scale 7-10) Omeprazole 20 mg 11/19/20 09:00 11/21/20 08:57 Omeprazole 20 Mg Capsule.Dr PO 20 mg DAILY [facility] Administration Oxycodone HCl 5 mg 11/19/20 23:55 11/20/20 00:19 Oxycodone Hcl Immed Release 5 Mg Tablet PO 5 mg Q4H PRN Administration Pain, Severe (Pain Scale 7-10) Sodium Chloride 3 ml 11/19/20 08:00 11/21/20 09:00 0.9 % Sodium Chloride Flush 3 Ml Syringe IVFLUSH 3 ml QSHIFT [facility] Administration Labs CBC & Chem 7: 11/21/20 05:53 11/21/20 05:53 Microbiology Microbiology Results: Microbiology 11/19/20 00:00 Urine clean catch - Clean Catch Midstream Urine Culture - Final Klebsiella pneumoniae 11/19/20 01:47 Blood - Venous Blood Culture - Preliminary No growth after 48 hours. 11/19/20 01:47 Blood - Venous Blood Culture - Preliminary No growth after 48 hours. Assessment and Plan (1) Leukocytosis: Status: Acute (2) Acute kidney injury: Status: Acute (3) Acute hypokalemia: Status: Acute (4) Hypomagnesemia: Status: Acute Assessment and Plan: 55 year old woman presenting with chest pain and nausea, vomiting, diarrhea and poor PO intake. Electrolyte abnormalities seen as well as acute kidney injury. Nasal congestion, coughing Body aches To recheck COVID test UTI Urine culture growing GNR Start ceftriaxone pending final sensitivity Nausea, vomiting, diarrhea improved Likely viral gastroenteritis. CT abdomen showing no acute findings. advance diet as tolerated Acute kidney injury Likey 2/2 dehydration Improved back to baseline Serological studies pending Discontinue IVF monitor I\O and monitor BMP No need Kidney biopsy Can resume diet Hypokalemia, hypomagnesemia corrected Likley due to GI losses. Repleted PO and IV Chest pain No recurrence of pain Monitoring on telemetry given her QTc interval was prolonged Repeat EKG in AM to assess for closure. HTN hx Not on meds BP controlled, monitor COPD, asthma, TEODORA No exacerbation. Can continue Combivent prn if she becomes symptomatic. DVT proph SC heparin
[2020-11-21 12:52] LABS: Anti Nuclear Antibody Screen NEGATIVE (NEGATIVE); Myeloperoxidase Antibody <1.0 AI; Proteinase 3 PR3 Antibodies <1.0 AI
--- NOTE | 2020-11-21 17:53 | P.PNNP_ITS ---
Subjective Subjective Date of Service: 11/21/20 Principal diagnosis: bhanu Interval history: Seen and examined. Events noted. c/o uRT sxms. Physical Exam Vital Signs: Vital Signs: Last Vital Signs Temp 96.6 F L 11/21/20 16:00 Pulse 90 11/21/20 16:00 Resp 16 11/21/20 16:00 BP 131/57 L 11/21/20 16:00 Pulse Ox 97 11/21/20 16:00 Body Mass Index 42.9 Const: General: cooperative, healthy appearing, comfortable, no acute distress and alert Orientation/consciousness: patient oriented x3 Limitations: no limitations HENMT: Head: Yes normal to inspection Ears: hearing grossly normal bilaterally General nose exam: Normal external nose present Face and sin us: Yes normal facial exam Mouth: Normal oral and palatal mucosa present Throat: Yes posterior oropharynx normal Eyes: General: appearance normal, both eyes and all related structures Pupils: Equal, round and reactive pupils present Neck: Neck: Yes normal visual inspection Chest: Chest palpation & inspection: normal inspection of the chest Resp: Effort & Inspection: normal respiratory effort and able to speak in com plete sentences Auscultation: clear to auscultation bilaterally Cardio: Rate: regular rate Rhythm: regular rhythm Heart sounds: S1 normal heart sound present and S2 normal heart sound present Peripheral pulses: Peripheral pulses 2+ throughout GI: Inspection: Yes normal to inspection Palpation (GI): Soft to palpation and Tenderness to palpation present (GI) (mild diffuse tenderness, no focal, no rebound or guarding ) Auscultation: normal bowel sounds Back/Spine/Pelvis: Thoracic/Lumbar Spine: thoracic and lumbar spine normal to inspection Skin: General skin exam: no rashes or lesions noted Neuro: General: patient oriented x3, no focal motor deficits and normal sensation to monofilament Cranial nerves: Yes Equal, round and reactive pupils present Cognition (Neuro): normal cognition Speech: No Abnormal speech present Gait exam (Neuro): Normal gait present Motor exam (neuro): 5/5 motor strength present throughout Extrem: General: Yes normal to inspection Objective Data Labs CBC & Chem 7: 11/21/20 05:53 11/21/20 05:53 Labs: Laboratory Results - last 24 hr 11/19/20 11/19/20 11/21/20 18:50 18:50 05:53 WBC 6.5 RBC 3.88 L Hgb 11.9 L Hct 37.7 MCV 97.2 MCH 30.7 MCHC 31.6 RDW 14.9 Plt Count 133 L MPV 10.9 Absolute Nucleated RBC 0.000 Nucleated RBC % (auto) 0.0 Sodium Potassium Chloride Carbon Dioxide Anion Gap BUN Creatinine Estim Creat Clear Calc Estimated GFR Random Glucose Calcium VASYL Screen NEGATIVE VASYL Titer TNP VASYL Titer 2 TNP VASYL Titer 3 TNP VASYL Pattern TNP VASYL Pattern 2 TNP VASYL Pattern 3 TNP Proteinase 3 (PR3) Ab <1.0 Myeloperoxidase Ab <1.0 COVID-19 (POP) COVID-19 Clin Com 11/21/20 11/21/20 05:53 09:30 WBC RBC Hgb Hct MCV MCH MCHC RDW Plt Count MPV Absolute Nucleated RBC Nucleated RBC % (auto) Sodium 139 Potassium 3.5 Chloride 103 Carbon Dioxide 21 L Anion Gap 19 BUN 20 H Creatinine 1.12 Estim Creat Clear Calc 70.8 Estimated GFR 51 Random Glucose 90 Calcium 7.6 L VASYL Screen VASYL Titer VASYL Titer 2 VASYL Titer 3 VASYL Pattern VASYL Pattern 2 VASYL Pattern 3 Proteinase 3 (PR3) Ab Myeloperoxidase Ab COVID-19 (POP) Negative COVID-19 Clin Com See Note Microbiology Microbiology Results: Microbiology 11/19/20 00:00 Urine clean catch - Clean Catch Midstream Urine Culture - Final Klebsiella pneumoniae 11/19/20 01:47 Blood - Venous Blood Culture - Preliminary No growth after 48 hours. 11/19/20 01:47 Blood - Venous Blood Culture - Preliminary No growth after 48 hours. Assessment & Plan Assessment and plan (1) Leukocytosis: Status: Acute (2) Acute kidney injury: Status: Acute (3) Acute hypokalemia: Status: Acute (4) Hypomagnesemia: Status: Acute Assessment and Plan: 55 year old woman presenting with chest pain and nausea, vomiting, diarrhea and poor PO intake dehydration BHANU, hypok 1. BHANU: resolved c/w ATN recovery and perhaps HALLE-I delaying renal recovery for 24 hrs.. 2. HypoK: imorved with replacement 3. GI symptoms: resolving REC: no need for kidney bx, d/c ivf, will need f/u as outpt given risk for CKD in future ginve BHANU event; avood HALLE-I and avoid NSAIDs, idf bp inc r then use CCB likel norvasc Time Spent With Patient Time: Total time spent is greater than 50% in coordination of care (as documented) at patient's floor/unit and/or counseling patient:
[2020-11-21] MEDS: Benzonatate 100 MG CAPSULE PO (23:56)
[2020-11-22 03:34] VITALS: BP 128/83; PULSE 81; RESP 18; TEMP 37; O2SAT 97
[2020-11-22 07:10] LABS: Anion Gap 12 (12-20); Blood Urea Nitrogen 16 mg/dL (9-16); Carbon Dioxide 28 mmol/L (22-29); Chloride 105 mmol/L (96-108); Creatinine Clr Calc Pharmacy 101.7; Estimated Glomerular Filt Rate > 60; Glucose Random 112 mg/dL (60-115); Potassium 3.8 mmol/l (3.3-5.1); Sodium 141 mmol/L (135-145)
[2020-11-22] MEDS: 0.9 % Sodium Chloride Flush 3 ML SYRINGE IVFLUSH (07:28)
[2020-11-22] MEDS: cefTRIAXone sodium 1 GM in 0.9 % Sodium Chloride 50 ML IV (07:28)
[2020-11-22] MEDS: Loratadine 10 MG TABLET PO (07:29)
[2020-11-22] MEDS: Omeprazole 20 MG CAPSULE.DR PO (07:29)
[2020-11-22 07:30] LABS: Calcium 8.1 mg/dL (8.4-10.2)
[2020-11-22] MEDS: Acetaminophen 325 MG TABLET 650 MG PO (07:33)
[2020-11-22] MEDS: Albuterol/Iprat 2.5/0.5MG 3 ML AMPUL.NEB INHALE (07:59)
[2020-11-22 08:00] VITALS: BP 163/86; PULSE 80; RESP 19; TEMP 36.4; O2SAT 98
[2020-11-22 08:01] VITALS: PULSE 98; O2SAT 99
--- NOTE | 2020-11-22 10:27 | P.DS_ITS ---
DS: Providers Provider Date of Service: 11/22/20 Date of admission: 11/19/20 06:25 Primary care physician: Unknown Physician Consults: 11/19/20 07:43 Consult to Nephrology Routine Consulting Provider: Jerry Bullock Reason for consultation: BHANU for your kind eval and recommendations 11/19/20 14:15 Consult Respiratory Therapy Routine Reason for consultation: sleep apnea DS: Diagnosis Discharge Diagnosis (1) Leukocytosis: Status: Acute (2) Acute kidney injury: Status: Acute (3) Acute hypokalemia: Status: Acute (4) Hypomagnesemia: Status: Acute DS: Medications Discharge Medications Home Medications: Home Medications Medication Instructions Recorded Confirmed fluticasone propionate 110 2 puff INHALATION BID g 09/23/20 11/19/20 mcg/actuation HFA aerosol inhaler fluticasone propionate 50 1 spray INTRANASAL DAILY 09/23/20 11/19/20 mcg/actuation nasal spray,suspension hydroxyzine pamoate 25 mg capsule 25 mg PO TID PRN 09/23/20 11/19/20 ipratropium 20 mcg-albuterol 100 1 puff INHALATION QID 09/23/20 11/19/20 mcg/actuation mist for inhalation loratadine-pseudoephedrine ER 10 1 tab PO DAILY 09/23/20 11/19/20 mg-240 mg tablet,extended [id number] omeprazole 20 mg capsule,delayed 20 mg PO DAILY 09/23/20 11/19/20 release lisinopril 40 mg PO DAILY 11/19/20 11/19/20 DS: Summary Hospital Course Hospital Course: Chief Complaint: Chest pain, abd pain, nausea, vomiting, diarrhea 55 year old woman with history of COPD/asthma, HTN, TEODORA not on CPAP presented with chest pain and ongoing GI symptoms noted in chief complaint. Was visiting family in [place] and on bus ride home deeloped chest pain. Stated the chest pain was bilateral and across lower part of the chest and seemed pleuritc at times an d was only present for a day. Today had ongoing GI symptoms that included diarrhea and abd pain. She describes nausea and frequent vomiting and has had associated poor PO intake over several days as a result. Abd pain described as crampy. No fevers or chills. No chest pain currently. Some dyspnea reported with activity-noticeably with walking. No sick contacts. Hospital course: 55 year old woman who presented with with chest pain and nausea, vomiting, diarrhea and poor PO intake and noted to have BHANU, and hypOkelemia as well as UTI due to Klebsiela Nausea, vomiting, diarrhea--likely from viral gastroenteritis. CT was negative and all symptoms resolved and she is tolerating diet UTI--due to Klebsiela, treated with Ceftriaxone in hospital with change to PO Ceftin. Acute kidney injury--due to dehydration from vomitting and no oral intake and this has resolved. Hypokalemia, hypomagnesemia--due to nausea and vomitting from GI loss--corrected Chest pain--atypical and resolved. No further work up needed HTN hx--Continue Lisinopril COPD, asthma, TEODORA No exacerbation. Can continue Combivent prn if she becomes symptomatic. Time Spent with Patient Time attestation: Total time spent providing and/or coordinating discharge services: Discharge coordination time: Greater than 30 minutes Physical Exam Vital Signs: Vital Signs: Last Vital Signs Temp 97.5 F 11/22/20 08:00 Pulse 98 11/22/20 08:01 Resp 19 11/22/20 08:00 BP 163/86 H 11/22/20 08:00 Pulse Ox 98 11/22/20 08:00 Body Mass Index 42.9 General: AO X 3, no acute distress Resp: CTA bilateral CVS: S1,S2,RRR GI: +BS, NT, no distention Skin: No rash Neuro: motor grossly intact Psych: appropriate affect DS: Data Data Completed and Pending Labs on day of discharge: Laboratory Tests 11/18/20 11/18/20 11/18/20 20:25 20:25 20:25 WBC 14.7 H RBC 4.91 D Hgb 14.9 D Hct 42.3 MCV 86.2 MCH 30.3 MCHC 35.2 H RDW 13.9 Plt Count 230 MPV 10.8 Immature Gran % (Auto) 0.4 Neut % (Auto) 81.7 H Lymph % (Auto) 9.8 L [place] % (Auto) 6.8 Eos % (Auto) 1.0 Baso % (Auto) 0.3 Lymph # (Auto) 1.4 [place] # (Auto) 1.0 Eos # (Auto) 0.2 Baso # (Auto) 0.1 Abs Immat Gran (auto) 0.06 H Absolute Neuts (auto) 12.0 H Absolute Nucleated RBC 0.020 H Nucleated RBC % (auto) 0.1 ESR Hold Blue Top SEE NOTE Sodium 136 Potassium 2.7 L D Chloride 90 L Carbon Dioxide 27 Anion Gap 22 H BUN 21 H D Creatinine 2.27 H Estim Creat Clear Calc 34.9 Estimated GFR 22 Random Glucose 129 H D Lactic Acid Uric Acid Calcium 8.6 Phosphorus Magnesium 1.5 L Total Bilirubin 1.5 H Direct Bilirubin 0.6 H AST 57 H ALT 40 H Alkaline Phosphatase 310 H D Total Creatine Kinase 146 H Troponin I High Sens C-Reactive Protein 0.52 H Total Protein 6.9 Albumin 4.0 Lipase 39 Urine Color Urine Appearance Urine pH Ur Specific [place] Urine Protein Urine Glucose (UA) Urine Ketones Urine Blood Urine Nitrite Ur Leukocyte Esterase Urine RBC Urine WBC Ur Squamous Epith Cells Ur Renal Epithelial Cell Urine Bacteria Epithelial Casts Hyaline Casts Granular Casts Urine Mucus Urine Yeast Urine Eosinophils % U Random Total Protein Ur Random Sodium Urine Creatinine Stool Leukocytes, Qual Urine Opiates Screen Ur Barbiturates Screen Ur Phencyclidine Scrn Ur Amphetamines Screen U Benzodiazepines Scrn Urine Cocaine Screen U Marijuana (THC) Screen Ethyl Alcohol VASYL Screen VASYL Titer VASYL Titer 2 VASYL Titer 3 VASYL Pattern VASYL Pattern 2 VASYL Pattern 3 Proteinase 3 (PR3) Ab Myeloperoxidase Ab COVID-19 (POP) COVID-19 Clin Com Hep Bs Antigen Hep Bs Antibody Hep B Core Total Ab Hepatitis C Ab (EIA) 11/18/20 11/18/20 11/18/20 20:25 23:58 23:58 WBC RBC Hgb Hct MCV MCH MCHC RDW Plt Count MPV Immature Gran % (Auto) Neut % (Auto) Lymph % (Auto) [place] % (Auto) Eos % (Auto) Baso % (Auto) Lymph # (Auto) [place] # (Auto) Eos # (Auto) Baso # (Auto) Abs Immat Gran (auto) Absolute Neuts (auto) Absolute Nucleated RBC Nucleated RBC % (auto) ESR Hold Blue Top Sodium Potassium Chloride Carbon Dioxide Anion Gap BUN Creatinine Estim Creat Clear Calc Estimated GFR Random Glucose Lactic Acid Uric Acid Calcium Phosphorus Magnesium Total Bilirubin Direct Bilirubin AST ALT Alkaline Phosphatase Total Creatine Kinase Troponin I High Sens 20.4 H D 28.9 H C-Reactive Protein Total Protein Albumin Lipase Urine Color Urine Appearance Urine pH Ur Specific [place] Urine Protein Urine Glucose (UA) Urine Ketones Urine Blood Urine Nitrite Ur Leukocyte Esterase Urine RBC Urine WBC Ur Squamous Epith Cells Ur Renal Epithelial Cell Urine Bacteria Epithelial Casts Hyaline Casts Granular Casts Urine Mucus Urine Yeast Urine Eosinophils % U Random Total Protein Ur Random Sodium Urine Creatinine Stool Leukocytes, Qual Urine Opiates Screen Ur Barbiturates Screen Ur Phencyclidine Scrn Ur Amphetamines Screen U Benzodiazepines Scrn Urine Cocaine Screen U Marijuana (THC) Screen Ethyl Alcohol VASYL Screen VASYL Titer VASYL Titer 2 VASYL Titer 3 VASYL Pattern VASYL Pattern 2 VASYL Pattern 3 Proteinase 3 (PR3) Ab Myeloperoxidase Ab COVID-19 (POP) Negative COVID-19 Clin Com See Note Hep Bs Antigen Hep Bs Antibody Hep B Core Total Ab Hepatitis C Ab (EIA) 11/18/20 11/19/20 11/19/20 23:58 01:47 01:47 WBC RBC Hgb Hct MCV MCH MCHC RDW Plt Count MPV Immature Gran % (Auto) Neut % (Auto) Lymph % (Auto) [place] % (Auto) Eos % (Auto) Baso % (Auto) Lymph # (Auto) [place] # (Auto) Eos # (Auto) Baso # (Auto) Abs Immat Gran (auto) Absolute Neuts (auto) Absolute Nucleated RBC Nucleated RBC % (auto) ESR 1 Hold Blue Top Sodium Potassium Chloride Carbon Dioxide Anion Gap BUN Creatinine Estim Creat Clear Calc Estimated GFR Random Glucose Lactic Acid 1.0 Uric Acid Calcium Phosphorus Magnesium Total Bilirubin Direct Bilirubin AST ALT Alkaline Phosphatase Total Creatine Kinase Troponin I High Sens C-Reactive Protein Total Protein Albumin Lipase Urine Color Urine Appearance Urine pH Ur Specific [place] Urine Protein Urine Glucose (UA) Urine Ketones Urine Blood Urine Nitrite Ur Leukocyte Esterase Urine RBC Urine WBC Ur Squamous Epith Cells Ur Renal Epithelial Cell Urine Bacteria Epithelial Casts Hyaline Casts Granular Casts Urine Mucus Urine Yeast Urine Eosinophils % U Random Total Protein Ur Random Sodium Urine Creatinine Stool Leukocytes, Qual Urine Opiates Screen Ur Barbiturates Screen Ur Phencyclidine Scrn Ur Amphetamines Screen U Benzodiazepines Scrn Urine Cocaine Screen U Marijuana (THC) Screen Ethyl Alcohol < 10 VASYL Screen VASYL Titer VASYL Titer 2 VASYL Titer 3 VASYL Pattern VASYL Pattern 2 VASYL Pattern 3 Proteinase 3 (PR3) Ab Myeloperoxidase Ab COVID-19 (POP) COVID-19 Clin Com Hep Bs Antigen Hep Bs Antibody Hep B Core Total Ab Hepatitis C Ab (EIA) 11/19/20 11/19/20 11/19/20 02:54 06:01 06:01 WBC RBC Hgb Hct MCV MCH MCHC RDW Plt Count MPV Immature Gran % (Auto) Neut % (Auto) Lymph % (Auto) [place] % (Auto) Eos % (Auto) Baso % (Auto) Lymph # (Auto) [place] # (Auto) Eos # (Auto) Baso # (Auto) Abs Immat Gran (auto) Absolute Neuts (auto) Absolute Nucleated RBC Nucleated RBC % (auto) ESR Hold Blue Top Sodium 134 L Potassium 3.3 D Chloride 95 L Carbon Dioxide 24 Anion Gap 18 BUN 24 H Creatinine 2.57 H Estim Creat Clear Calc 30.9 Estimated GFR 19 Random Glucose 113 Lactic Acid Uric Acid Calcium 7.9 L D Phosphorus Magnesium Total Bilirubin 0.9 Direct Bilirubin 0.5 AST 40 H ALT 31 Alkaline Phosphatase 242 H D Total Creatine Kinase Troponin I High Sens C-Reactive Protein Total Protein 6.0 L Albumin 3.5 Lipase Urine Color DARK YELLOW Urine Appearance HAZY Urine pH 5.0 Ur Specific [place] >= 1.030 H Urine Protein 1+ H Urine Glucose (UA) NEG Urine Ketones 5 Urine Blood 1+ H Urine Nitrite NEG Ur Leukocyte Esterase NEG Urine RBC 0-2 Urine WBC 5-9 H Ur Squamous Epith Cells 2+ Ur Renal Epithelial Cell TRACE Urine Bacteria 3+ Epithelial Casts 0-2 Hyaline Casts 1-4 Granular Casts 1-4 Urine Mucus TRACE Urine Yeast TRACE Urine Eosinophils % U Random Total Protein Ur Random Sodium Urine Creatinine Stool Leukocytes, Qual Urine Opiates Screen POSITIVE H Ur Barbiturates Screen Not Detected Ur Phencyclidine Scrn Not Detected Ur Amphetamines Screen Not Detected U Benzodiazepines Scrn Not Detected Urine Cocaine Screen Not Detected U Marijuana (THC) Screen Not Detected Ethyl Alcohol VASYL Screen VASYL Titer VASYL Titer 2 VASYL Titer 3 VASYL Pattern VASYL Pattern 2 VASYL Pattern 3 Proteinase 3 (PR3) Ab Myeloperoxidase Ab COVID-19 (POP) COVID-19 Clin Com Hep Bs Antigen Hep Bs Antibody Hep B Core Total Ab Hepatitis C Ab (EIA) 11/19/20 11/19/20 11/19/20 07:31 07:31 18:50 WBC 13.8 H RBC 4.24 Hgb 13.0 Hct 38.1 MCV 89.9 MCH 30.7 MCHC 34.1 RDW 14.4 Plt Count 171 D MPV 10.6 Immature Gran % (Auto) 0.3 Neut % (Auto) 77.5 H Lymph % (Auto) 12.6 L [place] % (Auto) 7.1 Eos % (Auto) 2.2 Baso % (Auto) 0.3 Lymph # (Auto) 1.7 [place] # (Auto) 1.0 Eos # (Auto) 0.3 Baso # (Auto) 0.0 Abs Immat Gran (auto) 0.04 H Absolute Neuts (auto) 10.7 H Absolute Nucleated RBC 0.000 Nucleated RBC % (auto) 0.0 ESR Hold Blue Top Sodium 136 Potassium 3.2 L Chloride 96 Carbon Dioxide 24 Anion Gap 19 BUN 24 H Creatinine 2.69 H Estim Creat Clear Calc 29.5 Estimated GFR 18 Random Glucose 115 Lactic Acid Uric Acid Calcium 7.9 L Phosphorus Magnesium 2.4 Total Bilirubin Direct Bilirubin AST ALT Alkaline Phosphatase Total Creatine Kinase Troponin I High Sens C-Reactive Protein Total Protein Albumin Lipase Urine Color Urine Appearance Urine pH Ur Specific [place] Urine Protein Urine Glucose (UA) Urine Ketones Urine Blood Urine Nitrite Ur Leukocyte Esterase Urine RBC Urine WBC Ur Squamous Epith Cells Ur Renal Epithelial Cell Urine Bacteria Epithelial Casts Hyaline Casts Granular Casts Urine Mucus Urine Yeast Urine Eosinophils % U Random Total Protein Ur Random Sodium Urine Creatinine Stool Leukocytes, Qual Urine Opiates Screen Ur Barbiturates Screen Ur Phencyclidine Scrn Ur Amphetamines Screen U Benzodiazepines Scrn Urine Cocaine Screen U Marijuana (THC) Screen Ethyl Alcohol VASYL Screen NEGATIVE VASYL Titer TNP VASYL Titer 2 TNP VASYL Titer 3 TNP VASYL Pattern TNP VASYL Pattern 2 TNP VASYL Pattern 3 TNP Proteinase 3 (PR3) Ab Myeloperoxidase Ab COVID-19 (POP) COVID-19 Clin Com Hep Bs Antigen Hep Bs Antibody Hep B Core Total Ab Hepatitis C Ab (EIA) 11/19/20 11/19/20 11/19/20 18:50 18:50 18:50 WBC RBC Hgb Hct MCV MCH MCHC RDW Plt Count MPV Immature Gran % (Auto) Neut % (Auto) Lymph % (Auto) [place] % (Auto) Eos % (Auto) Baso % (Auto) Lymph # (Auto) [place] # (Auto) Eos # (Auto) Baso # (Auto) Abs Immat Gran (auto) Absolute Neuts (auto) Absolute Nucleated RBC Nucleated RBC % (auto) ESR Hold Blue Top Sodium 136 Potassium 3.1 L Chloride 94 L Carbon Dioxide 26 Anion Gap 19 BUN 25 H Creatinine 3.06 H Estim Creat Clear Calc 25.9 Estimated GFR 16 Random Glucose Lactic Acid Uric Acid 11.0 H Calcium Phosphorus 2.7 Magnesium Total Bilirubin Direct Bilirubin AST ALT Alkaline Phosphatase Total Creatine Kinase 257 H D Troponin I High Sens C-Reactive Protein Total Protein Albumin Lipase Urine Color Urine Appearance Urine pH Ur Specific [place] Urine Protein Urine Glucose (UA) Urine Ketones Urine Blood Urine Nitrite Ur Leukocyte Esterase Urine RBC Urine WBC Ur Squamous Epith Cells Ur Renal Epithelial Cell Urine Bacteria Epithelial Casts Hyaline Casts Granular Casts Urine Mucus Urine Yeast Urine Eosinophils % U Random Total Protein Ur Random Sodium Urine Creatinine Stool Leukocytes, Qual Urine Opiates Screen Ur Barbiturates Screen Ur Phencyclidine Scrn Ur Amphetamines Screen U Benzodiazepines Scrn Urine Cocaine Screen U Marijuana (THC) Screen Ethyl Alcohol VASYL Screen VASYL Titer VASYL Titer 2 VASYL Titer 3 VASYL Pattern VASYL Pattern 2 VASYL Pattern 3 Proteinase 3 (PR3) Ab <1.0 Myeloperoxidase Ab <1.0 COVID-19 (POP) COVID-19 Clin Com Hep Bs Antigen Negative Hep Bs Antibody REACTIVE Hep B Core Total Ab Nonreactive Hepatitis C Ab (EIA) Nonreactive 11/20/20 11/20/20 11/20/20 06:11 06:11 08:15 WBC 10.0 RBC 3.73 L Hgb 11.4 L Hct 35.2 L MCV 94.4 MCH 30.6 MCHC 32.4 RDW 14.8 Plt Count 150 L MPV 11.4 Immature Gran % (Auto) Neut % (Auto) Lymph % (Auto) [place] % (Auto) Eos % (Auto) Baso % (Auto) Lymph # (Auto) [place] # (Auto) Eos # (Auto) Baso # (Auto) Abs Immat Gran (auto) Absolute Neuts (auto) Absolute Nucleated RBC 0.000 Nucleated RBC % (auto) 0.0 ESR Hold Blue Top Sodium 135 Potassium 3.3 Chloride 98 Carbon Dioxide 26 Anion Gap 14 BUN 26 H Creatinine 2.91 H Estim Creat Clear Calc 27.2 Estimated GFR 17 Random Glucose 94 Lactic Acid Uric Acid Calcium 7.8 L Phosphorus Magnesium Total Bilirubin Direct Bilirubin AST ALT Alkaline Phosphatase Total Creatine Kinase Troponin I High Sens C-Reactive Protein Total Protein Albumin Lipase Urine Color Urine Appearance Urine pH Ur Specific [place] Urine Protein Urine Glucose (UA) Urine Ketones Urine Blood Urine Nitrite Ur Leukocyte Esterase Urine RBC Urine WBC Ur Squamous Epith Cells Ur Renal Epithelial Cell Urine Bacteria Epithelial Casts Hyaline Casts Granular Casts Urine Mucus Urine Yeast Urine Eosinophils % U Random Total Protein Ur Random Sodium Urine Creatinine Stool Leukocytes, Qual Cancelled Urine Opiates Screen Ur Barbiturates Screen Ur Phencyclidine Scrn Ur Amphetamines Screen U Benzodiazepines Scrn Urine Cocaine Screen U Marijuana (THC) Screen Ethyl Alcohol VASYL Screen VASYL Titer VASYL Titer 2 VASYL Titer 3 VASYL Pattern VASYL Pattern 2 VASYL Pattern 3 Proteinase 3 (PR3) Ab Myeloperoxidase Ab COVID-19 (POP) COVID-19 Clin Com Hep Bs Antigen Hep Bs Antibody Hep B Core Total Ab Hepatitis C Ab (EIA) 11/20/20 11/20/20 11/20/20 08:15 08:15 08:15 WBC RBC Hgb Hct MCV MCH MCHC RDW Plt Count MPV Immature Gran % (Auto) Neut % (Auto) Lymph % (Auto) [place] % (Auto) Eos % (Auto) Baso % (Auto) Lymph # (Auto) [place] # (Auto) Eos # (Auto) Baso # (Auto) Abs Immat Gran (auto) Absolute Neuts (auto) Absolute Nucleated RBC Nucleated RBC % (auto) ESR Hold Blue Top Sodium Potassium Chloride Carbon Dioxide Anion Gap BUN Creatinine Estim Creat Clear Calc Estimated GFR Random Glucose Lactic Acid Uric Acid Calcium Phosphorus Magnesium Total Bilirubin Direct Bilirubin AST ALT Alkaline Phosphatase Total Creatine Kinase Troponin I High Sens C-Reactive Protein Total Protein Albumin Lipase Urine Color Urine Appearance Urine pH Ur Specific [place] Urine Protein Urine Glucose (UA) Urine Ketones Urine Blood Urine Nitrite Ur Leukocyte Esterase Urine RBC Urine WBC Ur Squamous Epith Cells Ur Renal Epithelial Cell Urine Bacteria Epithelial Casts Hyaline Casts Granular Casts Urine Mucus Urine Yeast Urine Eosinophils % 0.0 U Random Total Protein 43 H Ur Random Sodium 77.0 Urine Creatinine Cancelled 286.32 Stool Leukocytes, Qual Urine Opiates Screen Ur Barbiturates Screen Ur Phencyclidine Scrn Ur Amphetamines Screen U Benzodiazepines Scrn Urine Cocaine Screen U Marijuana (THC) Screen Ethyl Alcohol VASYL Screen VASYL Titer VASYL Titer 2 VASYL Titer 3 VASYL Pattern VASYL Pattern 2 VASYL Pattern 3 Proteinase 3 (PR3) Ab Myeloperoxidase Ab COVID-19 (POP) COVID-19 Clin Com Hep Bs Antigen Hep Bs Antibody Hep B Core Total Ab Hepatitis C Ab (EIA) 11/21/20 11/21/20 11/21/20 05:53 05:53 09:30 WBC 6.5 RBC 3.88 L Hgb 11.9 L Hct 37.7 MCV 97.2 MCH 30.7 MCHC 31.6 RDW 14.9 Plt Count 133 L MPV 10.9 Immature Gran % (Auto) Neut % (Auto) Lymph % (Auto) [place] % (Auto) Eos % (Auto) Baso % (Auto) Lymph # (Auto) [place] # (Auto) Eos # (Auto) Baso # (Auto) Abs Immat Gran (auto) Absolute Neuts (auto) Absolute Nucleated RBC 0.000 Nucleated RBC % (auto) 0.0 ESR Hold Blue Top Sodium 139 Potassium 3.5 Chloride 103 Carbon Dioxide 21 L Anion Gap 19 BUN 20 H Creatinine 1.12 Estim Creat Clear Calc 70.8 Estimated GFR 51 Random Glucose 90 Lactic Acid Uric Acid Calcium 7.6 L Phosphorus Magnesium Total Bilirubin Direct Bilirubin AST ALT Alkaline Phosphatase Total Creatine Kinase Troponin I High Sens C-Reactive Protein Total Protein Albumin Lipase Urine Color Urine Appearance Urine pH Ur Specific [place] Urine Protein Urine Glucose (UA) Urine Ketones Urine Blood Urine Nitrite Ur Leukocyte Esterase Urine RBC Urine WBC Ur Squamous Epith Cells Ur Renal Epithelial Cell Urine Bacteria Epithelial Casts Hyaline Casts Granular Casts Urine Mucus Urine Yeast Urine Eosinophils % U Random Total Protein Ur Random Sodium Urine Creatinine Stool Leukocytes, Qual Urine Opiates Screen Ur Barbiturates Screen Ur Phencyclidine Scrn Ur Amphetamines Screen U Benzodiazepines Scrn Urine Cocaine Screen U Marijuana (THC) Screen Ethyl Alcohol VASYL Screen VASYL Titer VASYL Titer 2 VASYL Titer 3 VASYL Pattern VASYL Pattern 2 VASYL Pattern 3 Proteinase 3 (PR3) Ab Myeloperoxidase Ab COVID-19 (POP) Negative COVID-19 Clin Com See Note Hep Bs Antigen Hep Bs Antibody Hep B Core Total Ab Hepatitis C Ab (EIA) 11/22/20 05:59 WBC RBC Hgb Hct MCV MCH MCHC RDW Plt Count MPV Immature Gran % (Auto) Neut % (Auto) Lymph % (Auto) [place] % (Auto) Eos % (Auto) Baso % (Auto) Lymph # (Auto) [place] # (Auto) Eos # (Auto) Baso # (Auto) Abs Immat Gran (auto) Absolute Neuts (auto) Absolute Nucleated RBC Nucleated RBC % (auto) ESR Hold Blue Top Sodium 141 Potassium 3.8 Chloride 105 Carbon Dioxide 28 Anion Gap 12 BUN 16 Creatinine 0.78 Estim Creat Clear Calc 101.7 Estimated GFR > 60 Random Glucose 112 Lactic Acid Uric Acid Calcium 8.1 L D Phosphorus Magnesium Total Bilirubin Direct Bilirubin AST ALT Alkaline Phosphatase Total Creatine Kinase Troponin I High Sens C-Reactive Protein Total Protein Albumin Lipase Urine Color Urine Appearance Urine pH Ur Specific [place] Urine Protein Urine Glucose (UA) Urine Ketones Urine Blood Urine Nitrite Ur Leukocyte Esterase Urine RBC Urine WBC Ur Squamous Epith Cells Ur Renal Epithelial Cell Urine Bacteria Epithelial Casts Hyaline Casts Granular Casts Urine Mucus Urine Yeast Urine Eosinophils % U Random Total Protein Ur Random Sodium Urine Creatinine Stool Leukocytes, Qual Urine Opiates Screen Ur Barbiturates Screen Ur Phencyclidine Scrn Ur Amphetamines Screen U Benzodiazepines Scrn Urine Cocaine Screen U Marijuana (THC) Screen Ethyl Alcohol VASYL Screen VASYL Titer VASYL Titer 2 VASYL Titer 3 VASYL Pattern VASYL Pattern 2 VASYL Pattern 3 Proteinase 3 (PR3) Ab Myeloperoxidase Ab COVID-19 (POP) COVID-19 Clin Com Hep Bs Antigen Hep Bs Antibody Hep B Core Total Ab Hepatitis C Ab (EIA) Preliminary micro results at discharge 11/19/20 01:47 Blood Culture - Preliminary Blood - Venous No growth after 48 hours. 11/19/20 01:47 Blood Culture - Preliminary Blood - Venous No growth after 48 hours. Discharge Plan Discharge Anticipated Discharge Date/Time: 11/22/20 10:23 Patient Disposition: Home, Self-Care Referrals: Physician,Unknown [Primary Care Provider] - Discharge Medications: New cefuroxime axetil 250 mg Tablet 250 mg PO Q12H Qty: 8 RF: 0 Continued lisinopril 40 mg Tablet 40 mg PO DAILY RF: 0 Flovent HFA 110 mcg/actuation HFA aerosol inhaler 2 puff inhalation BID RF: 0 Combivent Respimat 20-100 mcg/actuation mist 1 puff inhalation QID RF: 0 fluticasone propionate [Flonase Allergy Relief] 50 mcg/actuation spray,suspension 1 spray intranasal DAILY RF: 0 omeprazole 20 mg capsule,delayed release(DR/EC) 20 mg PO DAILY RF: 0 loratadine-pseudoephedrine [Claritin-D 24 Hour] 10-240 mg tablet extended release 24 hr 1 tab PO DAILY RF: 0 hydroxyzine pamoate 25 mg capsule 25 mg PO TID PRN (Reason: Anxiety) RF: 0 Diet: advance to usual diet Activity on Discharge: As tolerated Stand Alone Forms: Patient Portal Discharge page Visit Report Forms: Patient Portal Discharge page Care Plan Goals: Full recovery from UTI, renal failure Health Concerns: No acute concern at this time Plan of Treatment: Take Cefuroxime for UTI, follow up with your Doctor in a week, call for appointment
--- NOTE | 2020-11-22 11:17 | MHC.CM.PN ---
PATIENT IS DISCHARGED HOME WITH NO SERVICES. RN AWARE OF PLAN.
[2020-11-22 12:00] VITALS: BP 122/80; PULSE 80; RESP 19; TEMP 37; O2SAT 97
== END 2020-11-22 14:57 | disposition home or self-care (01) | DRG 463 ==
LOC: HO.ED 11-19 02:18 → HO.EDOVER 11-19 07:25 → HO.S3 11-20 08:21 → HO.EDOVER 11-20 13:48 → HO.S3 11-20 13:48
PROVIDERS: Emergency Medicine; Internal Medicine Nephrology; Nurse Practitioner Family; Student in an Organized Health Care Education/Training Program; Admitting Provider Internal Medicine; Emergency Provider Emergency Medicine Emergency Medical Services; Visit Provider Internal Medicine
DX: N39.0 Urinary tract infection, site not specified (principal); N17.0 Acute kidney failure with tubular necrosis; E83.42 Hypomagnesemia; A08.4 Viral intestinal infection, unspecified; J44.9 Chronic obstructive pulmonary disease, unspecified; E86.0 Dehydration; B96.1 Klebsiella pneumoniae [K. pneumoniae] as the cause of diseases classified elsewhere; G47.33 Obstructive sleep apnea (adult) (pediatric); D72.829 Elevated white blood cell count, unspecified; E87.6 Hypokalemia; Z20.822 Contact with and (suspected) exposure to COVID-19; Z79.51 Long term (current) use of inhaled steroids; Z88.6 Allergy status to analgesic agent; Z79.899 Other long term (current) drug therapy
CPT/HCPCS: 36415; 71045; 71250; 74176; 80048; 80051; 80053; 80076; 80307; 80320; 81001; 81003; 82550; 82565; 83605; 83690; 83735; 84100; 84156; 84300; 84484; 84520; 84550; 85025; 85027; 85652; 86021; 86038; 86039; 86140; 86704; 86706; 86803; 87040; 87086; 87088; 87186; 87340; 87635; 89190; 93005; 94640; 96361; 96365; 96374; 96375; 99285; J0696; J2270; J2405; J3475

== ENCOUNTER → 2021-01-16 14:25 | Outpatient (BNVA) | payer MEDICAID, SELFPAY | PROVIDERS: PCP Family Medicine; Visit Provider Internal Medicine | DX: J98.4 Other disorders of lung (principal); G47.33 Obstructive sleep apnea (adult) (pediatric); E66.01 Morbid (severe) obesity due to excess calories; I27.0 Primary pulmonary hypertension; G47.36 Sleep related hypoventilation in conditions classified elsewhere; R05 Cough; Z79.51 Long term (current) use of inhaled steroids; Z79.899 Other long term (current) drug therapy | CPT/HCPCS: 99212 ==

== ENCOUNTER → 2021-03-27 14:23 | Outpatient (BNVA) | payer MEDICAID, SELFPAY | PROVIDERS: PCP Family Medicine; Visit Provider Internal Medicine | DX: G47.33 Obstructive sleep apnea (adult) (pediatric) (principal); E66.01 Morbid (severe) obesity due to excess calories; I27.0 Primary pulmonary hypertension; G47.36 Sleep related hypoventilation in conditions classified elsewhere; J98.4 Other disorders of lung | CPT/HCPCS: 99212 ==

== ENCOUNTER → 2021-08-15 09:39 | Outpatient (BNVA) | payer MEDICAID, SELFPAY | PROVIDERS: Visit Provider Nurse Practitioner Family | DX: M54.41 Lumbago with sciatica, right side (principal); M79.18 Myalgia, other site; J96.91 Respiratory failure, unspecified with hypoxia; J98.4 Other disorders of lung; E66.01 Morbid (severe) obesity due to excess calories; Z68.39 Body mass index [BMI] 39.0-39.9, adult; Z88.6 Allergy status to analgesic agent | CPT/HCPCS: 99202 ==

== ENCOUNTER 2021-08-25 13:25 | Outpatient (REF) | payer MEDICAID, SELFPAY ==
--- NOTE | ~2021-08-25 | US_ITS ---
EXAMINATION: NONINVASIVE ASSESSMENT OF THE ARTERIES OF BOTH LOWER EXTREMITIES WITH PVR EXAM AND BILATERAL LOWER EXTREMITY DUPLEX Myron Pagan MD CLINICAL INFORMATION: Peripheral vascular disease. TECHNIQUE: Ankle pulse volume recordings, ankle pressure measurements and ankle brachial indices were obtained of the lower extremity arterial system bilaterally in addition to duplex Doppler techniques with wave form analysis and measurement of velocities in the common femoral, profunda femoral, superficial femoral, popliteal and tibial arteries. The study was performed only at rest. COMPARISON: None FINDINGS: AT REST: RIGHT LE. The right ankle-brachial index is: 1.1 * >0.97-1.25 = normal - no significant arterial disease * 0.75-0.96 = mild peripheral arterial disease * 0.5-0.74 = moderate peripheral arterial disease * <0.50 = severe peripheral arterial disease 2. Right ankle pressure: normal. 3. Right ankle PVR waveform: normal. 4. Right direct duplex Doppler findings: No significant plaque is present and triphasic normal waveforms are noted throughout. Common Femoral: 157 Profunda Femoris: 84 Proximal SFA: 141 Mid SFA: 100 Distal SFA: 112 Popliteal: 97 Tibial: 101 LEFT LE. The left ankle-brachial index is: 1.1 * >0.97-1.25 = normal - no significant arterial disease * 0.75-0.96 = mild peripheral arterial disease * 0.5-0.74 = moderate peripheral arterial disease * <0.50 = severe peripheral arterial disease 2. Left ankle pressure: normal. 3. Left ankle PVR waveform: normal. 4. Left direct duplex Doppler findings: No significant plaque is present and triphasic normal waveforms are noted throughout. Common Femoral: 157 Profunda Femoris: 87 Proximal SFA: 138 Mid SFA: 101 Distal SFA: 87 Popliteal: 83 Tibial: 129 A 6.8 x 2.2 x 3.0 cm Irwin's cyst is noted in the left popliteal fossa. US/US SERGEI complete IMPRESSION: There is no evidence of any hemodynamically significant lower extremity arterial disease by pressure, waveform or duplex Doppler criteria at rest.
--- NOTE | ~2021-08-25 | US_ITS ---
EXAMINATION: NONINVASIVE ASSESSMENT OF THE ARTERIES OF BOTH LOWER EXTREMITIES WITH PVR EXAM AND BILATERAL LOWER EXTREMITY DUPLEX Myron Pagan MD CLINICAL INFORMATION: Peripheral vascular disease. TECHNIQUE: Ankle pulse volume recordings, ankle pressure measurements and ankle brachial indices were obtained of the lower extremity arterial system bilaterally in addition to duplex Doppler techniques with wave form analysis and measurement of velocities in the common femoral, profunda femoral, superficial femoral, popliteal and tibial arteries. The study was performed only at rest. COMPARISON: None FINDINGS: AT REST: RIGHT LE. The right ankle-brachial index is: 1.1 * >0.97-1.25 = normal - no significant arterial disease * 0.75-0.96 = mild peripheral arterial disease * 0.5-0.74 = moderate peripheral arterial disease * <0.50 = severe peripheral arterial disease 2. Right ankle pressure: normal. 3. Right ankle PVR waveform: normal. 4. Right direct duplex Doppler findings: No significant plaque is present and triphasic normal waveforms are noted throughout. Common Femoral: 157 Profunda Femoris: 84 Proximal SFA: 141 Mid SFA: 100 Distal SFA: 112 Popliteal: 97 Tibial: 101 LEFT LE. The left ankle-brachial index is: 1.1 * >0.97-1.25 = normal - no significant arterial disease * 0.75-0.96 = mild peripheral arterial disease * 0.5-0.74 = moderate peripheral arterial disease * <0.50 = severe peripheral arterial disease 2. Left ankle pressure: normal. 3. Left ankle PVR waveform: normal. 4. Left direct duplex Doppler findings: No significant plaque is present and triphasic normal waveforms are noted throughout. Common Femoral: 157 Profunda Femoris: 87 Proximal SFA: 138 Mid SFA: 101 Distal SFA: 87 Popliteal: 83 Tibial: 129 A 6.8 x 2.2 x 3.0 cm Irwin's cyst is noted in the left popliteal fossa. US/US arterial duplex LE BI IMPRESSION: There is no evidence of any hemodynamically significant lower extremity arterial disease by pressure, waveform or duplex Doppler criteria at rest.
== END 2021-08-25 13:26 | disposition home or self-care (01) ==
LOC: HO.US 13:25
PROVIDERS: PCP Family Medicine; Visit Provider Family Medicine
DX: I73.9 Peripheral vascular disease, unspecified (principal)
CPT/HCPCS: 93923; 93925

== ENCOUNTER 2021-09-09 18:01 | Inpatient (IN) | payer MEDICAID, SELFPAY ==
--- NOTE | ~2021-09-09 | CT_ITS ---
EXAMINATION: CT ABDOMEN AND PELVIS WITHOUT CONTRAST CLINICAL INFORMATION: Flank pain, rule out obstructing stone COMPARISON: 11/19/2020 TECHNIQUE: Multidetector volumetric imaging was performed from the superior aspect of the liver through the pubic symphysis. Sagittal and coronal reformatted images were obtained on the technologist's workstation. This CT examination was performed using dose optimization techniques as appropriate, variously including the following: *Automated exposure control *Adjustment of mA and/or kV according to patient size (this includes techniques or standardized protocols for targeted exams where dose is matched to indication/reason for exam; i.e. extremities or head) *Use of iterative reconstruction technique DLP: 1993 mGy-cm FINDINGS: LUNG BASES: The visualized lung bases are unremarkable. LIVER, GALLBLADDER, AND BILIARY TREE: The liver demonstrates diffuse hypoattenuation consistent with steatosis. No focal hepatic lesion or biliary ductal dilatation is present. Patient is status post cholecystectomy. PANCREAS: Unremarkable. SPLEEN: Unremarkable. ADRENAL GLANDS: Unremarkable. KIDNEYS AND URETERS: The kidneys are normal in size, shape, and attenuation. No hydronephrosis, hydroureter, or calculi seen. BLADDER: Unremarkable. GASTROINTESTINAL TRACT: The small and large bowel are unremarkable. The appendix is unremarkable. No free fluid or free air is seen. ABDOMINAL WALL: No significant hernia is appreciated. LYMPH NODES: Normal. VASCULAR: Unremarkable. PELVIC VISCERA: Unremarkable. OSSEOUS STRUCTURES: Degenerative changes are noted in the lumbar spine. CT/CT abdomen pelvis wo con IMPRESSION: 1. No hydronephrosis or renal/ureteral calculus. 2. Hepatic steatosis.
[2021-09-09 18:18] VITALS: BP 148/82; PULSE 72; RESP 18; TEMP 524.4; TEMP 976; O2SAT 99; BMI 39.8
--- NOTE | 2021-09-09 19:45 | ED.GENADULT ---
HPI - General Adult General Chief complaint: General Medical Stated complaint: back pain hx kidney failure Time Seen by Provider: 09/09/21 19:39 Source: patient Mode of arrival: ambulatory Limitations: no limitations History of Present Illness HPI narrative: Patient comes emergency room complaining of left lower back pain. Patient complaining of chills, no fever. Patient states she took a muscle relaxant for the pain that is right above her hip in the posterior aspect. Patient states that approximately 11 months ago, patient had similar symptoms, she was diagnosed with renal failure. Patient denies dysuria or hematuria Related Data Home Medications Medication Instructions Recorded Confirmed hydroxyzine pamoate 25 mg capsule 25 mg PO TID PRN 09/23/20 09/09/21 lisinopril 40 mg tablet 40 mg PO DAILY 11/19/20 09/09/21 loratadine 10 mg tablet (Claritin) 10 mg PO DAILY 01/16/21 09/09/21 albuterol sulfate 90 mcg/actuation 2 puff INHALATION Q6H PRN 03/27/21 09/09/21 aerosol inhaler magnesium chloride 64 mg 64 mg PO BEDTIME 08/15/21 09/09/21 (magnesium chloride) tablet,delayed release montelukast 10 mg tablet 10 mg PO BEDTIME 08/15/21 09/09/21 tramadol 50 mg tablet 50 mg PO BID PRN 08/15/21 amlodipine 10 mg tablet 1 tab PO DAILY 09/09/21 09/09/21 doxepin 25 mg capsule 1 cap PO BEDTIME 09/09/21 09/09/21 hydrocodone 10 mg-acetaminophen 1.5 tab PO Q8H PRN 09/09/21 09/09/21 325 mg tablet ipratropium 20 mcg-albuterol 100 1 puff PO QID PRN 09/09/21 09/09/21 mcg/actuation mist for inhalation (Combivent Respimat) lactulose 10 gram/15 mL oral 15 ml PO DAILY 09/09/21 09/09/21 solution omeprazole 20 mg capsule,delayed 1 cap PO DAILY 09/09/21 09/09/21 release oxybutynin chloride 5 mg 1 tab PO DAILY 09/09/21 09/09/21 tablet,extended release 24 hr polyethylene glycol 3350 17 17 g PO DAILY 09/09/21 09/09/21 gram/dose oral powder propranolol 20 mg tablet 1 tab PO BID 09/09/21 09/09/21 tizanidine 2 mg tablet 1 mg PO BEDTIME PRN 09/09/21 09/09/21 topiramate 25 mg tablet 1 tab PO BEDTIME 09/09/21 09/09/21 Previous Rx's Medication Instructions Recorded fluticasone propionate 110 2 puff PO BID #12 g 07/21/21 mcg/actuation HFA aerosol inhaler (Flovent HFA) Allergies Allergy/AdvReac Type Severity Reaction Status Date / Time aspirin [ASPIRIN] Allergy Unknown RASH Verified 03/27/21 15:09 Review of Systems Review of Systems: Constitutional : No Weight loss, No Fever, No Chills, No Night Sweats, No Fatigue, No Malaise ENT/Mouth : No Hearing loss, No Ear Pain, No Nasal Congestion, No Sinus Pain, No Hoarseness, No sore throat, No Rhinorrhea, No Swallowing Difficulty Eyes: No Eye Pain, No Swelling, No Redness, No Foreign Body, No Discharge, No Vision Changes Cardiovascular : No Chest Pain, No SOB, No Dyspnea on Exertion, No Orthopnea, No Edema, No Palpitations Respiratory : No Cough, No Sputum, No Wheezing, No Smoke Exposure, No Dyspnea Gastrointestinal : No Nausea, No Vomiting, No Diarrhea, No Constipation, No abdominal Pain, No Hematochezia, No Melena Genitourinary : no irregular bleeding, No Dysuria, No Urinary Frequency, No Hematuria, No Urinary Incontinence, No Urgency, No Flank Pain, No Urinary Flow Changes, No Hesitancy Musculoskeletal : Complaining of back pain above the hip left posterior aspect, No joint pain, No Myalgias, No Joint Swelling Skin : No Skin Lesions, No rash Neuro : No Weakness, No Numbness, No Paresthesias, No Loss of Consciousness, No Dizziness, No Headache Psych : No Anxiety/Panic, No Depression, No SI/HI/AH/VH, No Social Issues, Heme/Lymph: No Bruising, No Bleeding,No Lymphadenopathy Endocrine : No Polyuria, No Polydipsia, No Temperature Intolerance FOR[facility]LY [facility] Past Medical History Medical History Cough Morbid obesity Nocturnal hypoxemia due to primary pulmonary hypertension TEODORA (obstructive sleep apnea) Restrictive lung disease Surgical History History of cholecystectomy Social History Social History Household Members: Friend(s) Housing: House Alcohol intake: current Alcohol intake frequency: a few times a week Alcohol type: hard liquor Advance Directives: No Advance Directives Information Provided: Yes service: No Current occupational status: unemployed Physical Exam Vital Signs: Vital Signs: Last Vital Signs Temp 98.3 F 09/09/21 22:55 Pulse 86 09/09/21 23:15 Resp 16 09/09/21 23:15 BP 115/55 L 09/09/21 23:15 Pulse Ox 97 09/09/21 23:15 Body Mass Index 39.8 Const: Other: Appearance: Alert. Oriented X3. No acute distress. Eyes: Pupils equal, round and reactive to light. ENT: Pharynx normal. Neck: Normal inspection. Neck supple. No lymph nodes noted. No crepitus CVS: Normal heart rate and rhythm. Pulses normal. Normal S1 and S2 Respiratory: No respiratory distress. Breath sounds normal. No Wheezing. No rales Abdomen: Soft and nontender. No rigidity. No distention. Back: No flank pain, pain to palpation on the posterior aspect of the left lower back, around the paraspinal muscles and above the left hip posteriorly, pain with sitting up from lying down position, negative CVA tenderness Skin: Skin warm and dry. Normal skin color. Normal skin turgor. Extremities: No lower extremity edema. No lower extremity edema. No Lacerations. No Rash Neuro: Oriented X 3. No motor deficit. No sensory deficit. Moving all extermities. No slurred speech. Course Course Course Narrative: I was informed by the patient's nurse that the patient's blood pressure dropped to 70 systolic. I asked to recheck the blood pressure again. It was 115 systolic. Seems that they were taking the blood pressure with the incorrect cuff size in the forearm over clothing. Patient seems to be more uncomfortable. Patient has had a very mild UTI, only positive for leukocyte esterase. Patient was treated with ceftriaxone, mild UTI and flank pain indicate clinical pyelonephritis. Also, even after IV fluid hydration, patient's creatinine levels are not at baseline yet. I discussed the above-mentioned with our hospitalist Dr. Díaz, patient being admitted, patient will need more fluid Medical Decision Making Lab Data Result diagrams: 09/09/21 20:21 09/10/21 00:31 Labs: Lab Results 09/09/21 09/09/21 09/09/21 Range/Units 20:21 20:21 21:07 WBC 6.0 (4.8-10.8) X10*3/uL RBC 3.77 L (4.20-5.50) X10*6/uL Hgb 11.1 L (12.0-16.0) g/dl Hct 35.1 L (37.0-47.0) % MCV 93.1 (80.0-98.0) fL MCH 29.4 (27.0-33.0) pg MCHC 31.6 (31.0-35.0) g/dl RDW 16.4 H (11.0-16.0) % Plt Count 193 (160-400) X10*3/uL MPV 10.7 (9.4-12.3) fL Immature Gran % (Auto) 0.3 (0.0-0.4) % Neut % (Auto) 55.1 (45-73) % Lymph % (Auto) 26.9 (20-40) % [place] % (Auto) 12.4 H (2-11) % Eos % (Auto) 4.8 H (0-4) % Baso % (Auto) 0.5 (0-2) % Lymph # (Auto) 1.6 (1.2-4.9) X10*3/uL [place] # (Auto) 0.8 (0.1-1.2) X10*3/uL Eos # (Auto) 0.3 (0.0-0.4) X10*3/uL Baso # (Auto) 0.0 (0.0-0.2) X10*3/uL Abs Immat Gran (auto) 0.02 (0.00-0.03) X10*3/uL Absolute Neuts (auto) 3.3 (2.0-8.3) x10*3/uL Absolute Nucleated RBC 0.000 (0.0-0.012) X10*3/uL Nucleated RBC % (auto) 0.0 (0.0-0.2) /100WBC Sodium 139 (135-145) mmol/L Potassium 4.0 (3.3-5.1) mmol/L Chloride 104 (96-108) mmol/L Carbon Dioxide 24 (22-29) mmol/L Anion Gap 15 (12-20) BUN 30 H D (9-16) mg/dL Creatinine 2.43 H (0.5-1.4) mg/dL Estim Creat Clear Calc 31.3 Estimated GFR 21 Random Glucose 85 (60-115) mg/dL Calcium 8.3 L (8.4-10.2) mg/dL Total Bilirubin 0.3 (0.0-1.0) mg/dL Direct Bilirubin 0.2 (0.0-0.5) mg/dL AST 116 H (5-31) U/L ALT 88 H (0-31) U/L Alkaline Phosphatase 117 D (39-117) U/L Total Protein 6.1 L (6.5-8.0) g/dL Albumin 3.5 (3.5-5.0) g/dL Urine Color YELLOW Urine Appearance CLEAR Urine pH 5.5 (5.0-8.0) Ur Specific [place] >= 1.030 H (1.005-1.025) Urine Protein TRACE (NEG-TRACE) MG/DL Urine Glucose (UA) NEG (NEG) MG/DL Urine Ketones 5 (NEG) MG/DL Urine Blood NEG (NEG) Urine Nitrite NEG (NEG) Ur Leukocyte Esterase TRACE H (NEG) Urine RBC 0-2 (0) /HPF Urine WBC 1-4 (0-4) /HPF Ur Squamous Epith Cells TRACE /LPF Triple Phos Crystals TRACE /LPF Urine Bacteria TRACE /LPF Urine Opiates Screen (Not Detect) Urine Fentanyl Screen (Not Detect) Ur Barbiturates Screen (Not Detect) Ur Phencyclidine Scrn (Not Detect) Ur Amphetamines Screen (Not Detect) U Benzodiazepines Scrn (Not Detect) Urine Cocaine Screen (Not Detect) U Marijuana (THC) Screen (Not Detect) 09/09/21 09/10/21 Range/Units 23:23 00:31 WBC (4.8-10.8) X10*3/uL RBC (4.20-5.50) X10*6/uL Hgb (12.0-16.0) g/dl Hct (37.0-47.0) % MCV (80.0-98.0) fL MCH (27.0-33.0) pg MCHC (31.0-35.0) g/dl RDW (11.0-16.0) % Plt Count (160-400) X10*3/uL MPV (9.4-12.3) fL Immature Gran % (Auto) (0.0-0.4) % Neut % (Auto) (45-73) % Lymph % (Auto) (20-40) % [place] % (Auto) (2-11) % Eos % (Auto) (0-4) % Baso % (Auto) (0-2) % Lymph # (Auto) (1.2-4.9) X10*3/uL [place] # (Auto) (0.1-1.2) X10*3/uL Eos # (Auto) (0.0-0.4) X10*3/uL Baso # (Auto) (0.0-0.2) X10*3/uL Abs Immat Gran (auto) (0.00-0.03) X10*3/uL Absolute Neuts (auto) (2.0-8.3) x10*3/uL Absolute Nucleated RBC (0.0-0.012) X10*3/uL Nucleated RBC % (auto) (0.0-0.2) /100WBC Sodium 140 (135-145) mmol/L Potassium 4.0 (3.3-5.1) mmol/L Chloride 109 H (96-108) mmol/L Carbon Dioxide 20 L (22-29) mmol/L Anion Gap 15 (12-20) BUN 27 H (9-16) mg/dL Creatinine 1.76 H (0.5-1.4) mg/dL Estim Creat Clear Calc 43.2 Estimated GFR 30 Random Glucose 80 (60-115) mg/dL Calcium 7.5 L D (8.4-10.2) mg/dL Total Bilirubin (0.0-1.0) mg/dL Direct Bilirubin (0.0-0.5) mg/dL AST (5-31) U/L ALT (0-31) U/L Alkaline Phosphatase (39-117) U/L Total Protein (6.5-8.0) g/dL Albumin (3.5-5.0) g/dL Urine Color Urine Appearance Urine pH (5.0-8.0) Ur Specific [place] (1.005-1.025) Urine Protein (NEG-TRACE) MG/DL Urine Glucose (UA) (NEG) MG/DL Urine Ketones (NEG) MG/DL Urine Blood (NEG) Urine Nitrite (NEG) Ur Leukocyte Esterase (NEG) Urine RBC (0) /HPF Urine WBC (0-4) /HPF Ur Squamous Epith Cells /LPF Triple Phos Crystals /LPF Urine Bacteria /LPF Urine Opiates Screen POSITIVE H (Not Detect) Urine Fentanyl Screen Not Detected (Not Detect) Ur Barbiturates Screen Not Detected (Not Detect) Ur Phencyclidine Scrn Not Detected (Not Detect) Ur Amphetamines Screen Not Detected (Not Detect) U Benzodiazepines Scrn Not Detected (Not Detect) Urine Cocaine Screen Not Detected (Not Detect) U Marijuana (THC) Screen Not Detected (Not Detect) Discharge Plan Discharge Clinical Impression: Acute kidney injury, Pyelonephritis Patient Disposition: Admitted As Inpatient Prescriptions: No Action Flovent HFA 110 mcg/actuation HFA aerosol inhaler 2 puff PO BID Qty: 12 RF: 3 lisinopril 40 mg Tablet 40 mg PO DAILY RF: 0 doxepin 25 mg capsule 1 cap PO BEDTIME RF: 0 hydrocodone-acetaminophen 10-325 mg tablet 1.5 tab PO Q8H PRN (Reason: Pain) RF: 0 oxybutynin chloride 5 mg tablet extended release 24hr 1 tab PO DAILY RF: 0 polyethylene glycol 3350 17 gram/dose powder 17 g PO DAILY RF: 0 lactulose 10 gram/15 mL solution 15 ml PO DAILY RF: 0 Combivent Respimat 20-100 mcg/actuation mist 1 puff PO QID PRN (Reason: Shortness Of Breath) RF: 0 topiramate 25 mg tablet 1 tab PO BEDTIME RF: 0 amlodipine 10 mg tablet 1 tab PO DAILY RF: 0 omeprazole 20 mg capsule,delayed release(DR/EC) 1 cap PO DAILY RF: 0 propranolol 20 mg tablet 1 tab PO BID RF: 0 tizanidine 2 mg tablet 1 mg PO BEDTIME PRN (Reason: muscle spasticity) RF: 0 hydroxyzine pamoate 25 mg capsule 25 mg PO TID PRN (Reason: Anxiety) RF: 0 albuterol sulfate 90 mcg/actuation HFA aerosol inhaler 2 puff inhalation Q6H PRN (Reason: Shortness Of Breath) RF: 0 loratadine [Claritin] 10 mg tablet 10 mg PO DAILY RF: 0
[2021-09-09 20:25] LABS: MANUAL DIFF FLAG NO
[2021-09-09 20:26] LABS: Basophils Percent Auto 0.5 % (0-2); Eosinophils Absolute Auto 0.3 X10*3/uL (0.0-0.4); Eosinophils Percent Auto 4.8 % (0-4); Hematocrit 35.1 % (37.0-47.0); Hemoglobin 11.1 g/dl (12.0-16.0); Imm Gran Abs Auto 0.02 X10*3/uL (0.00-0.03); Imm Gran Pct Auto 0.3 % (0.0-0.4); Lymphocytes Absolute Auto 1.6 X10*3/uL (1.2-4.9); Lymphocytes Percent Auto 26.9 % (20-40); Mean Corpuscular HGB Conc 31.6 g/dl (31.0-35.0); Mean Corpuscular Hemoglobin 29.4 pg (27.0-33.0); Mean Corpuscular Volume 93.1 fL (80.0-98.0); Mean Platelet Volume 10.7 fL (9.4-12.3); Monocytes Absolute Auto 0.8 X10*3/uL (0.1-1.2); Monocytes Percent Auto 12.4 % (2-11); Neutrophils Absolute Auto 3.3 x10*3/uL (2.0-8.3); Neutrophils Percent Auto 55.1 % (45-73); Platelet Count 193 X10*3/uL (160-400); Red Blood Count 3.77 X10*6/uL (4.20-5.50); Red Cell Distribution Width 16.4 % (11.0-16.0)
[2021-09-09 20:31] VITALS: BP 101/49; PULSE 76; RESP 18; TEMP 36.7; O2SAT 96
[2021-09-09 20:44] LABS: Alanine Aminotransferase 88 U/L (0-31); Albumin Level 3.5 g/dL (3.5-5.0); Alkaline Phosphatase 117 U/L (39-117); Anion Gap 15 (12-20); Aspartate Amino Transferase 116 U/L (5-31); Bilirubin Direct 0.2 mg/dL (0.0-0.5); Bilirubin Total 0.3 mg/dL (0.0-1.0); Blood Urea Nitrogen 30 mg/dL (9-16); Calcium 8.3 mg/dL (8.4-10.2); Carbon Dioxide 24 mmol/L (22-29); Chloride 104 mmol/L (96-108); Creatinine Clr Calc Pharmacy 31.3; Estimated Glomerular Filt Rate 21; Glucose Random 85 mg/dL (60-115); Sodium 139 mmol/L (135-145); Total Protein 6.1 g/dL (6.5-8.0)
--- NOTE | 2021-09-09 21:11 | PC.NURSE ---
Pt ambulatory to bathroom with steady, independent gait to provide urine sample for UA. UA collected and sent to lab for processing. Pt offers no complaints while ambulating. Pt returned to stretcher without incidence. Pt awaiting labs and plan pending.
[2021-09-09 21:20] LABS: Appearance Urine CLEAR; Color Urine YELLOW; Glucose Urine UA NEG (NEG); Leukocyte Esterase Urine TRACE (NEG); Nitrite Urine NEG (NEG); PH 5.5 (5.0-8.0); Specific Gravity - Urine >= 1.030 (1.005-1.025); UACC Culture Trigger YES; Urine Blood NEG (NEG); Urine Ketones 5 MG/DL (NEG); Urine Protein TRACE MG/DL (NEG-TRACE)
[2021-09-09] MEDS: 0.9 % Sodium Chloride 1,000 ML 999 ML IVCONT ×2 (21:31→23:22)
[2021-09-09 21:36] LABS: Bacteria Urine TRACE /LPF; RBC Urine 0-2 /HPF (0); Squamous Epithelial Cell Urine TRACE /LPF; Triple Phosphate Crystal Urine TRACE /LPF
--- NOTE | 2021-09-09 22:06 | PHA.MEDREC ---
Pharmacy Consult ? Medication Reconciliation Pharmacy has completed the medication reconciliation. Allison CrockettD
--- NOTE | 2021-09-09 22:50 | PC.NURSE ---
Per Dr Pardo, no BC needed prior to admin of abx
[2021-09-09] MEDS: cefTRIAXone sodium 1 GM in 0.9 % Sodium Chloride 50 ML IV (22:52)
[2021-09-09 22:55] VITALS: BP 75/32; PULSE 81; RESP 15; TEMP 36.8; O2SAT 94
[2021-09-09] MEDS: ondansetron HCL 4 MG/2 ML VIAL IVPUSH (23:06)
--- NOTE | 2021-09-09 23:06 | PC.NURSE ---
This RN to bedside to assess VS and medicate with abx per orders. Pt BP in 70s as charted, Dr valdivia is aware. Pt reports she can provide additional urine sample. Pt is assisted to seated position before standing and begings gagging, Dr Valdivia ordered zofran. This RN medicated pt, pt reports improvement after dry heaving into emesis bag. Pt to be assisted to bathroom for urine sample by this RN
[2021-09-09 23:15] VITALS: BP 115/55; PULSE 86; RESP 16; O2SAT 97
[2021-09-10] VITALS (11 sets, daily range): BP systolic 93–138; BP diastolic 45–76; PULSE 71–87; RESP 15–19; TEMP 35.6–37; O2SAT 94–98
[2021-09-10 00:01] LABS: Amphetamine Screen Urine Not Detected (Not Detect); Barbiturates, Urine Not Detected (Not Detect); Benzodiazepines Screen Urine Not Detected (Not Detect); Cannabinoid Screen Urine Not Detected (Not Detect); Cocaine Screen Urine Not Detected (Not Detect); Fentanyl, urine Not Detected (Not Detect); Opiate Screen Urine POSITIVE (Not Detect); Phencyclidine Screen Urine Not Detected (Not Detect)
[2021-09-10 01:00] LABS: Anion Gap 15 (12-20); Blood Urea Nitrogen 27 mg/dL (9-16); Calcium 7.5 mg/dL (8.4-10.2); Carbon Dioxide 20 mmol/L (22-29); Chloride 109 mmol/L (96-108); Creatinine Clr Calc Pharmacy 43.2; Estimated Glomerular Filt Rate 30; Glucose Random 80 mg/dL (60-115); Sodium 140 mmol/L (135-145)
[2021-09-10 02:34] LABS: COVID-19 Test Negative (Negative)
[2021-09-10] MEDS: Doxepin HCl 25 MG CAPSULE PO ×2 (02:43→21:26)
[2021-09-10] MEDS: Topiramate 25 MG TABLET PO ×2 (02:43→21:26)
[2021-09-10] MEDS: Enoxaparin Sodium 40 MG/0.4 ML SYRINGE SUBCUT (02:44)
[2021-09-10] MEDS: Lactated Ringers 1,000 ML 100 ML IVCONT ×2 (02:53→10:40)
--- NOTE | 2021-09-10 04:33 | PC.NURSE ---
Dr Díaz made aware of pt's BP. Plan for liter of LR.
[2021-09-10] MEDS: Lactated Ringers 1,000 ML 999 ML IV (04:39)
--- NOTE | 2021-09-10 06:00 | PM.IMHP ---
History of Present Illness Date of Service: 09/10/21 Chief Complaint: Back pain 55-year-old female with past medical history of hypertension, TEODORA, restrictive lung disease,/asthma, GERD, who presents to the hospital with complaints of bilateral flank pain that started on 09 09. Patient reports that she was at work when she started developing back pain left-sided flank more than right. She describes the pain as stabbing, constant, occurs spontaneously and worsened over the several hours, 10/10, radiating to the front of her stomach, no alleviating or exacerbating factors. Patient reports similar incident in October of this year found to have Klebsiella UTI. She denies any headache or change in vision, she has no chest pain, no shortness of breath. Had 1 episode of vomiting in the ED with no recurrence. No diarrhea constipation. She denies any frequency urgency or dysuria. No lower extremity edema. On arrival to the ED patient vitals are significant for temp of 97.6, heart rate of 72, respiratory rate of 18, blood pressure of 148/82, satting 99% on room air Labs are significant for the BC count of 6.0, hemoglobin of 11.1 which is around her baseline, BUN of 30, creatinine of 2.43 with a baseline of 0.78, AST of 116, ALT of 88, UA that is positive for trace leukocyte Estrace as well as some WBC. Patient received 2 L of IV fluid with some improvement of her creatinine but not back to baseline. Patient will be admitted for further management Review of Systems Review of Systems: Yes all other systems are reviewed and are negative [facility] Medical History (Updated 09/10/21 @ 06:06 by Pallavi Díaz MD) Asthma Cough Hypertension Morbid obesity Nocturnal hypoxemia due to primary pulmonary hypertension TEODORA (obstructive sleep apnea) Restrictive lung disease Family History (Updated 09/10/21 @ 06:05 by Pallavi Díaz MD) Mother Skin cancer Surgical History History of cholecystectomy Social History Household Members: Friend(s) Housing: House Alcohol intake: current Alcohol intake frequency: a few times a week Alcohol type: hard liquor Advance Directives: No Advance Directives Information Provided: Yes service: No Current occupational status: unemployed Meds Allergies Allergy/AdvReac Type Severity Reaction Status Date / Time aspirin [ASPIRIN] Allergy Unknown RASH Verified 03/27/21 15:09 Active Medications: Current Medications Acetaminophen (Acetaminophen 325 Mg Tablet) 650 mg PO Q6H PRN PRN Reason: Pain, Mild (Pain Scale 1-3) Albuterol Sulfate (Albuterol Sulfate 90 Mcg 8 Gm Inhaler) 2 puff INHALE Q6H PRN PRN Reason: Shortness Of Breath Albuterol/Ipratropium (Albuterol/Iprat 2.5/0.5mg 3 Ml Ampul.Neb) 3 ml INHALE QID PRN PRN Reason: Shortness Of Breath Docusate Sodium (Docusate Sodium 100 Mg Capsule) 100 mg PO DAILY PRN PRN Reason: Constipation Doxepin HCl (Doxepin Hcl 25 Mg Capsule) 25 mg PO BEDTIME [facility] Last Admin: 09/10/21 02:43 Dose: 25 mg Documented by: Enoxaparin Sodium (Enoxaparin Sodium 40 Mg/0.4 Ml Syringe) 40 mg SUBCUT Q24H [facility] Last Admin: 09/10/21 02:44 Dose: 40 mg Documented by: Fluticasone Propionate (Fluticasone Propionate 100 Mcg Blst.W.Dev) 2 puff INHALE RBID [facility] Hydroxyzine HCl (Hydroxyzine Hcl 25 Mg Tablet) 25 mg PO TID PRN PRN Reason: Anxiety Lactated Ringer's (Lr) 1,000 mls @ 100 mls/hr IVCONT .Q10H [facility] Last Admin: 09/10/21 02:53 Dose: 100 mls/hr Documented by: Ceftriaxone Sodium 1 gm/ (Sodium Chloride) 50 mls @ 100 mls/hr IV Q24H [facility] Lactulose (Lactulose 20 Gm/30 Ml Solution) 10 gm PO DAILY [facility] Loratadine (Loratadine 10 Mg Tablet) 10 mg PO DAILY [facility] Omeprazole (Omeprazole 20 Mg Capsule.Dr) 20 mg PO DAILY [facility] Ondansetron HCl (Ondansetron Hcl 4 Mg/2 Ml Vial) 4 mg IVPUSH Q8H PRN PRN Reason: Nausea and Vomiting Oxybutynin Chloride (Oxybutynin Chloride Er 5 Mg Tab.Er.24) 5 mg PO DAILY [facility] Oxycodone HCl (Oxycodone Hcl Immed Release 5 Mg Tablet) 5 mg PO Q6H PRN PRN Reason: Pain, Severe (Pain Scale 7-10) Pharmacy Consult (Consult Rx Perform Med Rec) 1 each MISCELLANE ONCE PRN PRN Reason: Consult order Polyethylene Glycol (Polyethylene Glycol 3350 17 Gm Powd.Pack) 17 gm PO DAILY [facility] Propranolol HCl (Propranolol Hcl 20 Mg Tablet) 20 mg PO BID [facility]; Protocol Sodium Chloride (0.9 % Sodium Chloride Flush 3 Ml Syringe) [address] [facility] Tizanidine HCl (Tizanidine Hcl 4 Mg Tablet) 1 mg PO BEDTIME PRN PRN Reason: muscle spasticity Topiramate (Topiramate 25 Mg Tablet) 25 mg PO BEDTIME [facility] Last Admin: 09/10/21 02:43 Dose: 25 mg Documented by: Home Medications Medication Instructions Recorded Confirmed Last Taken Type hydroxyzine pamoate 25 mg capsule 25 mg PO TID PRN 09/23/20 09/09/21 11/05/20 History lisinopril 40 mg tablet 40 mg PO DAILY 11/19/20 09/09/21 09/09/21 History loratadine 10 mg tablet (Claritin) 10 mg PO DAILY 01/16/21 09/09/21 09/09/21 History albuterol sulfate 90 mcg/actuation 2 puff INHALATION Q6H PRN 03/27/21 09/09/21 Unknown History aerosol inhaler magnesium chloride 64 mg 64 mg PO BEDTIME 08/15/21 09/09/21 09/09/21 History (magnesium chloride) tablet,delayed release montelukast 10 mg tablet 10 mg PO BEDTIME 08/15/21 09/09/21 09/08/21 History tramadol 50 mg tablet 50 mg PO BID PRN 08/15/21 Unknown History amlodipine 10 mg tablet 1 tab PO DAILY 09/09/21 09/09/21 09/09/21 History doxepin 25 mg capsule 1 cap PO BEDTIME 09/09/21 09/09/21 09/08/21 History hydrocodone 10 mg-acetaminophen 1.5 tab PO Q8H PRN 09/09/21 09/09/21 Unknown History 325 mg tablet ipratropium 20 mcg-albuterol 100 1 puff PO QID PRN 09/09/21 09/09/21 Unknown History mcg/actuation mist for inhalation (Combivent Respimat) lactulose 10 gram/15 mL oral 15 ml PO DAILY 09/09/21 09/09/21 09/09/21 History solution omeprazole 20 mg capsule,delayed 1 cap PO DAILY 09/09/21 09/09/21 09/09/21 History release oxybutynin chloride 5 mg 1 tab PO DAILY 09/09/21 09/09/21 09/09/21 History tablet,extended release 24 hr polyethylene glycol 3350 17 17 g PO DAILY 09/09/21 09/09/21 09/09/21 History gram/dose oral powder propranolol 20 mg tablet 1 tab PO BID 09/09/21 09/09/21 09/09/21 History tizanidine 2 mg tablet 1 mg PO BEDTIME PRN 09/09/21 09/09/21 Unknown History topiramate 25 mg tablet 1 tab PO BEDTIME 09/09/21 09/09/21 Unknown History Physical Exam Vital Signs and Narrative: Vital Signs: Last Vital Signs Temp 96.0 F L 09/10/21 01:29 Pulse 80 09/10/21 04:00 Resp 15 09/10/21 04:00 BP 93/45 L 09/10/21 04:00 Pulse Ox 94 09/10/21 04:00 Body Mass Index 39.8 Results Labs CBC and Chem 7: 09/09/21 20:21 09/10/21 00:31 Labs: Laboratory Results - last 24 hr 09/09/21 09/09/21 09/09/21 20:21 20:21 21:07 MCV 93.1 MCH 29.4 MCHC 31.6 RDW 16.4 H Plt Count 193 MPV 10.7 Immature Gran % (Auto) 0.3 Neut % (Auto) 55.1 Lymph % (Auto) 26.9 [place] % (Auto) 12.4 H Eos % (Auto) 4.8 H Baso % (Auto) 0.5 Lymph # (Auto) 1.6 [place] # (Auto) 0.8 Eos # (Auto) 0.3 Baso # (Auto) 0.0 Abs Immat Gran (auto) 0.02 Absolute Neuts (auto) 3.3 Absolute Nucleated RBC 0.000 Nucleated RBC % (auto) 0.0 Anion Gap 15 Estim Creat Clear Calc 31.3 Estimated GFR 21 Random Glucose 85 Calcium 8.3 L Total Bilirubin 0.3 Direct Bilirubin 0.2 AST 116 H ALT 88 H Alkaline Phosphatase 117 D Total Protein 6.1 L Albumin 3.5 Urine Color YELLOW Urine Appearance CLEAR Urine pH 5.5 Ur Specific [place] >= 1.030 H Urine Protein TRACE Urine Glucose (UA) NEG Urine Ketones 5 Urine Blood NEG Urine Nitrite NEG Ur Leukocyte Esterase TRACE H Urine RBC 0-2 Urine WBC 1-4 Ur Squamous Epith Cells TRACE Triple Phos Crystals TRACE Urine Bacteria TRACE Urine Opiates Screen Urine Fentanyl Screen Ur Barbiturates Screen Ur Phencyclidine Scrn Ur Amphetamines Screen U Benzodiazepines Scrn Urine Cocaine Screen U Marijuana (THC) Screen COVID-19 (POP) COVID-19 Clin Com 09/09/21 09/10/21 09/10/21 23:23 00:31 02:14 MCV MCH MCHC RDW Plt Count MPV Immature Gran % (Auto) Neut % (Auto) Lymph % (Auto) [place] % (Auto) Eos % (Auto) Baso % (Auto) Lymph # (Auto) [place] # (Auto) Eos # (Auto) Baso # (Auto) Abs Immat Gran (auto) Absolute Neuts (auto) Absolute Nucleated RBC Nucleated RBC % (auto) Anion Gap 15 Estim Creat Clear Calc 43.2 Estimated GFR 30 Random Glucose 80 Calcium 7.5 L D Total Bilirubin Direct Bilirubin AST ALT Alkaline Phosphatase Total Protein Albumin Urine Color Urine Appearance Urine pH Ur Specific [place] Urine Protein Urine Glucose (UA) Urine Ketones Urine Blood Urine Nitrite Ur Leukocyte Esterase Urine RBC Urine WBC Ur Squamous Epith Cells Triple Phos Crystals Urine Bacteria Urine Opiates Screen POSITIVE H Urine Fentanyl Screen Not Detected Ur Barbiturates Screen Not Detected Ur Phencyclidine Scrn Not Detected Ur Amphetamines Screen Not Detected U Benzodiazepines Scrn Not Detected Urine Cocaine Screen Not Detected U Marijuana (THC) Screen Not Detected COVID-19 (POP) Negative COVID-19 Clin Com See Note Assessment and Plan (1) Acute kidney injury: Status: Acute (2) UTI (urinary tract infection): Status: Acute 55-year-old female with past medical history hypertension as well as asthma and TEODORA who presents to the hospital with complaints of flank pain found to have BHANU # BHANU - most likely secondary to UTI, - will obtain abdominal CT to rule out obstructing stone - will continue IV fluids - follow BMP # UTI - asymptomatic per patient given her history as well as her BHANU will treat with IV antibiotics - history of Klebsiella - will treat with ceftriaxone - follow urine cultures # hypertension - low - will hold nephrotoxic antihypertensives as well as amlodipine given her low blood pressure readings # history of asthma/restrictive lung disease -continue home inhalers DVT prophylaxis: Lovenox Quality Stroke Does the patient have a stroke diagnosis?: No VTE Prior VTE?: No VTE Risk Level:: Medical - moderate - high VTE Device Contraindication: Treatment Not Indicated VTE Drug Contraindication: N/A - Med Ordered
[2021-09-10] MEDS: ondansetron HCL 4 MG/2 ML VIAL IVPUSH ×2 (06:12→15:27)
[2021-09-10 06:59] LABS: MANUAL DIFF FLAG NO
[2021-09-10 07:02] LABS: Basophils Percent Auto 0.6 % (0-2); Eosinophils Absolute Auto 0.2 X10*3/uL (0.0-0.4); Eosinophils Percent Auto 4.3 % (0-4); Hematocrit 33.5 % (37.0-47.0); Hemoglobin 10.7 g/dl (12.0-16.0); Imm Gran Abs Auto 0.02 X10*3/uL (0.00-0.03); Imm Gran Pct Auto 0.4 % (0.0-0.4); Lymphocytes Absolute Auto 1.2 X10*3/uL (1.2-4.9); Mean Corpuscular HGB Conc 31.9 g/dl (31.0-35.0); Mean Corpuscular Hemoglobin 29.8 pg (27.0-33.0); Mean Corpuscular Volume 93.3 fL (80.0-98.0); Mean Platelet Volume 10.9 fL (9.4-12.3); Monocytes Absolute Auto 0.6 X10*3/uL (0.1-1.2); Monocytes Percent Auto 12.3 % (2-11); Neutrophils Absolute Auto 2.6 x10*3/uL (2.0-8.3); Neutrophils Percent Auto 56.4 % (45-73); Platelet Count 163 X10*3/uL (160-400); Red Blood Count 3.59 X10*6/uL (4.20-5.50); Red Cell Distribution Width 16.4 % (11.0-16.0); White Blood Count 4.7 X10*3/uL (4.8-10.8)
[2021-09-10 07:17] LABS: Anion Gap 10 (12-20); Blood Urea Nitrogen 27 mg/dL (9-16); Carbon Dioxide 25 mmol/L (22-29); Chloride 108 mmol/L (96-108); Creatinine Clr Calc Pharmacy 52.4; Estimated Glomerular Filt Rate 38; Glucose Random 106 mg/dL (60-115); Potassium 4.4 mmol/L (3.3-5.1); Sodium 139 mmol/L (135-145)
--- NOTE | 2021-09-10 09:47 | MHC.CM.PN ---
met with pt who reports living living with several roomates pt does not have servceis and does not exoect to need services when dd
[2021-09-10] MEDS: Omeprazole 20 MG CAPSULE.DR PO (10:40)
[2021-09-10] MEDS: Loratadine 10 MG TABLET PO (10:40)
[2021-09-10] MEDS: polyethylene glycoL 3350 17 GM POWD.PACK PO (10:40)
[2021-09-10] MEDS: Propranolol HCL 20 MG TABLET PO ×2 (10:40→21:26)
[2021-09-10] MEDS: Lactulose 20 GM/30 ML SOLUTION 10 GM PO (10:41)
[2021-09-10] MEDS: 0.9 % Sodium Chloride Flush 3 ML SYRINGE IVFLUSH ×3 (10:41→21:27)
--- NOTE | 2021-09-10 11:42 | P.PNIM_ITS ---
Subjective Subjective Date of Service: 09/10/21 Interval History: seen and examined this AM, RN bedside pt reports her flank pain now resolved, has more of her chronic back pain denies any urinary symptoms denies any abdominal pain denies any fevers or chills Review of Systems negative except interval history Physical Exam Vital Signs: Vital Signs: Last Vital Signs Temp 98.3 F 09/10/21 11:15 Pulse 80 09/10/21 11:15 Resp 18 09/10/21 11:15 BP 125/61 09/10/21 11:15 Pulse Ox 96 09/10/21 11:15 Body Mass Index 39.8 Const: Other: General - no acute distress, appears comfortable Cardiovascular - regular rate and rhythm, S1-S2 Lungs - normal respiratory effort, clear to auscultation bilaterally, no wheezing Abdomen - soft, nontender, no rebound or guarding; no CVA tenderness Extremities - no edema bilaterally Neuro - awake and alert, no focal deficits Objective Data Active Medications Acetaminophen (Acetaminophen 325 Mg Tablet) 650 mg PO Q6H PRN PRN Reason: Pain, Mild (Pain Scale 1-3) Albuterol Sulfate (Albuterol Sulfate 90 Mcg 8 Gm Inhaler) 2 puff INHALE Q6H PRN PRN Reason: Shortness Of Breath Albuterol/Ipratropium (Albuterol/Iprat 2.5/0.5mg 3 Ml Ampul.Neb) 3 ml INHALE QID PRN PRN Reason: Shortness Of Breath Docusate Sodium (Docusate Sodium 100 Mg Capsule) 100 mg PO DAILY PRN PRN Reason: Constipation Doxepin HCl (Doxepin Hcl 25 Mg Capsule) 25 mg PO BEDTIME [facility] Last Admin: 09/10/21 02:43 Dose: 25 mg Documented by: JUSTINA Enoxaparin Sodium (Enoxaparin Sodium 40 Mg/0.4 Ml Syringe) 40 mg SUBCUT Q24H [facility] Last Admin: 09/10/21 02:44 Dose: 40 mg Documented by: JUSTINA Fluticasone Propionate (Fluticasone Propionate 100 Mcg Blst.W.Dev) 2 puff INHALE RBID [facility] Last Admin: 09/10/21 07:51 Dose: Not Given Documented by: YAHAIRA Non-Admin Reason: Med Not Available Hydroxyzine HCl (Hydroxyzine Hcl 25 Mg Tablet) 25 mg PO TID PRN PRN Reason: Anxiety Lactated Ringer's (Lr) 1,000 mls @ 100 mls/hr IVCONT .Q10H [facility] Last Admin: 09/10/21 10:40 Dose: 100 mls/hr Documented by: PERI Ceftriaxone Sodium 1 gm/ (Sodium Chloride) 50 mls @ 100 mls/hr IV Q24H [facility] Lactulose (Lactulose 20 Gm/30 Ml Solution) 10 gm PO DAILY [facility] Last Admin: 09/10/21 10:41 Dose: 10 gm Documented by: PERI Loratadine (Loratadine 10 Mg Tablet) 10 mg PO DAILY [facility] Last Admin: 09/10/21 10:40 Dose: 10 mg Documented by: PERI Omeprazole (Omeprazole 20 Mg Capsule.Dr) 20 mg PO DAILY [facility] Last Admin: 09/10/21 10:40 Dose: 20 mg Documented by: PERI Ondansetron HCl (Ondansetron Hcl 4 Mg/2 Ml Vial) 4 mg IVPUSH Q8H PRN PRN Reason: Nausea and Vomiting Last Admin: 09/10/21 06:12 Dose: 4 mg Documented by: KING Oxybutynin Chloride (Oxybutynin Chloride Er 5 Mg Tab.Er.24) 5 mg PO DAILY [facility] Last Admin: 09/10/21 10:40 Dose: 5 mg Documented by: PERI Oxycodone HCl (Oxycodone Hcl Immed Release 5 Mg Tablet) 5 mg PO Q6H PRN PRN Reason: Pain, Severe (Pain Scale 7-10) Pharmacy Consult (Consult Rx Perform Med Rec) 1 each MISCELLANE ONCE PRN PRN Reason: Consult order Polyethylene Glycol (Polyethylene Glycol 3350 17 Gm Powd.Pack) 17 gm PO DAILY [facility] Last Admin: 09/10/21 10:40 Dose: 17 gm Documented by: PERI Propranolol HCl (Propranolol Hcl 20 Mg Tablet) 20 mg PO BID [facility]; Protocol Last Admin: 09/10/21 10:40 Dose: 20 mg Documented by: PERI Sodium Chloride (0.9 % Sodium Chloride Flush 3 Ml Syringe) 3 ml IVFLUSH QSHIFT [facility] Last Admin: 09/10/21 10:41 Dose: 3 ml Documented by: PERI Tizanidine HCl (Tizanidine Hcl 4 Mg Tablet) 1 mg PO BEDTIME PRN PRN Reason: muscle spasticity Topiramate (Topiramate 25 Mg Tablet) 25 mg PO BEDTIME [facility] Last Admin: 09/10/21 02:43 Dose: 25 mg Documented by: JUSTINA Labs CBC & Chem 7: 09/10/21 06:52 09/10/21 06:52 Labs: Laboratory Results - last 24 hr 09/09/21 09/09/21 09/09/21 20:21 20:21 21:07 MCV 93.1 MCH 29.4 MCHC 31.6 RDW 16.4 H Plt Count 193 MPV 10.7 Immature Gran % (Auto) 0.3 Neut % (Auto) 55.1 Lymph % (Auto) 26.9 [place] % (Auto) 12.4 H Eos % (Auto) 4.8 H Baso % (Auto) 0.5 Lymph # (Auto) 1.6 [place] # (Auto) 0.8 Eos # (Auto) 0.3 Baso # (Auto) 0.0 Abs Immat Gran (auto) 0.02 Absolute Neuts (auto) 3.3 Absolute Nucleated RBC 0.000 Nucleated RBC % (auto) 0.0 Anion Gap 15 Estim Creat Clear Calc 31.3 Estimated GFR 21 Random Glucose 85 Calcium 8.3 L Total Bilirubin 0.3 Direct Bilirubin 0.2 AST 116 H ALT 88 H Alkaline Phosphatase 117 D Total Protein 6.1 L Albumin 3.5 Urine Color YELLOW Urine Appearance CLEAR Urine pH 5.5 Ur Specific [place] >= 1.030 H Urine Protein TRACE Urine Glucose (UA) NEG Urine Ketones 5 Urine Blood NEG Urine Nitrite NEG Ur Leukocyte Esterase TRACE H Urine RBC 0-2 Urine WBC 1-4 Ur Squamous Epith Cells TRACE Triple Phos Crystals TRACE Urine Bacteria TRACE Urine Opiates Screen Urine Fentanyl Screen Ur Barbiturates Screen Ur Phencyclidine Scrn Ur Amphetamines Screen U Benzodiazepines Scrn Urine Cocaine Screen U Marijuana (THC) Screen COVID-19 (POP) COVID-19 Clin Com 09/09/21 09/10/21 09/10/21 23:23 00:31 02:14 MCV MCH MCHC RDW Plt Count MPV Immature Gran % (Auto) Neut % (Auto) Lymph % (Auto) [place] % (Auto) Eos % (Auto) Baso % (Auto) Lymph # (Auto) [place] # (Auto) Eos # (Auto) Baso # (Auto) Abs Immat Gran (auto) Absolute Neuts (auto) Absolute Nucleated RBC Nucleated RBC % (auto) Anion Gap 15 Estim Creat Clear Calc 43.2 Estimated GFR 30 Random Glucose 80 Calcium 7.5 L D Total Bilirubin Direct Bilirubin AST ALT Alkaline Phosphatase Total Protein Albumin Urine Color Urine Appearance Urine pH Ur Specific [place] Urine Protein Urine Glucose (UA) Urine Ketones Urine Blood Urine Nitrite Ur Leukocyte Esterase Urine RBC Urine WBC Ur Squamous Epith Cells Triple Phos Crystals Urine Bacteria Urine Opiates Screen POSITIVE H Urine Fentanyl Screen Not Detected Ur Barbiturates Screen Not Detected Ur Phencyclidine Scrn Not Detected Ur Amphetamines Screen Not Detected U Benzodiazepines Scrn Not Detected Urine Cocaine Screen Not Detected U Marijuana (THC) Screen Not Detected COVID-19 (POP) Negative COVID-19 Clin Com See Note 09/10/21 09/10/21 06:52 06:52 MCV 93.3 MCH 29.8 MCHC 31.9 RDW 16.4 H Plt Count 163 MPV 10.9 Immature Gran % (Auto) 0.4 Neut % (Auto) 56.4 Lymph % (Auto) 26.0 [place] % (Auto) 12.3 H Eos % (Auto) 4.3 H Baso % (Auto) 0.6 Lymph # (Auto) 1.2 [place] # (Auto) 0.6 Eos # (Auto) 0.2 Baso # (Auto) 0.0 Abs Immat Gran (auto) 0.02 Absolute Neuts (auto) 2.6 Absolute Nucleated RBC 0.000 Nucleated RBC % (auto) 0.0 Anion Gap 10 L Estim Creat Clear Calc 52.4 Estimated GFR 38 Random Glucose 106 Calcium 8.0 L D Total Bilirubin Direct Bilirubin AST ALT Alkaline Phosphatase Total Protein Albumin Urine Color Urine Appearance Urine pH Ur Specific [place] Urine Protein Urine Glucose (UA) Urine Ketones Urine Blood Urine Nitrite Ur Leukocyte Esterase Urine RBC Urine WBC Ur Squamous Epith Cells Triple Phos Crystals Urine Bacteria Urine Opiates Screen Urine Fentanyl Screen Ur Barbiturates Screen Ur Phencyclidine Scrn Ur Amphetamines Screen U Benzodiazepines Scrn Urine Cocaine Screen U Marijuana (THC) Screen COVID-19 (POP) COVID-19 Clin Com Microbiology Microbiology Results: Microbiology 11/16/21 Unknown Urine Culture - Preliminary Urine clean catch - Urine joseph top Culture too young to evaluate. Assessment and Plan (1) Acute kidney injury: Status: Acute Assessment and Plan: This is a 55 yo F with a PMH of HTN, asthma, TEODORA who presents to the hospital with complaints of flank pain, found to have BHANU and possible UTI. 1. BHANU cause unclear, question ATN (had hypotension in the ED) improved with IVF continue fluids 1 more day and monitor renal function tomorrow 2. Pyuria rule out UTI empiric rocephin, f/u urine cultures pt denies any urinary symptoms 3. Chronic back pain continue baseline meds 4. History of HTN was hypotensive in the ED, will hold 5. Asthma/Restrictive lung disease continue inhalers Full Code DVT pptx, Lovenox Quality Stroke Does the patient have a stroke diagnosis?: No VTE Prior VTE?: No VTE Risk Level:: Medical - moderate - high VTE Device Contraindication: Treatment Not Indicated VTE Drug Contraindication: N/A - Med Ordered
[2021-09-10] MEDS: Fluticasone Propionate 100 MCG BLST.W.DEV 2 PUFF INHALE (19:15)
[2021-09-10] MEDS: cefTRIAXone sodium 1 GM in 0.9 % Sodium Chloride 50 ML IV (21:27)
[2021-09-11] MEDS: ondansetron HCL 4 MG/2 ML VIAL IVPUSH ×2 (00:09→09:45)
[2021-09-11] MEDS: Enoxaparin Sodium 40 MG/0.4 ML SYRINGE SUBCUT (03:43)
[2021-09-11 04:00] VITALS: BP 123/57; PULSE 69; RESP 20; TEMP 36.8; O2SAT 95
[2021-09-11 07:15] VITALS: BP 137/70; PULSE 75; RESP 18; TEMP 36.4; O2SAT 94
[2021-09-11] MEDS: Fluticasone Propionate 100 MCG BLST.W.DEV 2 PUFF INHALE (08:03)
[2021-09-11 08:04] VITALS: PULSE 98; O2SAT 72
[2021-09-11] MEDS: 0.9 % Sodium Chloride Flush 3 ML SYRINGE IVFLUSH (09:55)
[2021-09-11 10:54] LABS: Anion Gap 10 (12-20); Blood Urea Nitrogen 15 mg/dL (9-16); Calcium 8.7 mg/dL (8.4-10.2); Carbon Dioxide 27 mmol/L (22-29); Chloride 106 mmol/L (96-108); Creatinine Clr Calc Pharmacy 83.6; Estimated Glomerular Filt Rate > 60; Glucose Random 114 mg/dL (60-115); Potassium 4.5 mmol/L (3.3-5.1); Sodium 138 mmol/L (135-145)
[2021-09-11 10:56] VITALS: BP 134/74; PULSE 70; RESP 18; TEMP 36.4; O2SAT 98
--- NOTE | 2021-09-11 11:04 | PM.DS ---
DS: Providers Provider Date of Service: 09/11/21 Date of admission: 09/10/21 01:12 Primary care physician: Luisa Gerard MD DS: Diagnosis Discharge Diagnosis (1) Acute kidney injury: Status: Acute DS: Summary Hospital Course Hospital Course: HPI from admission H&P: 55-year-old female with past medical history of hypertension, TEODORA, restrictive lung disease,/asthma, GERD, who presents to the hospital with complaints of bilateral flank pain that started on 09 09.? Patient reports that she was at work when she started developing back pain left-sided flank more than right.? She describes the pain as stabbing, constant, occurs spontaneously and worsened over the several hours, /10, radiating to the front of her stomach, no alleviating or exacerbating factors. Patient reports similar incident in October of this year found to have Klebsiella UTI. She denies any headache or change in vision, she has no chest pain, no shortness of breath.? Had 1 episode of vomiting in the ED with no recurrence.? No diarrhea constipation.? She denies any frequency urgency or dysuria.? No lower extremity edema.? On arrival to the ED patient vitals are significant for temp of 97.6, heart rate of 72, respiratory rate of 18, blood pressure of 148/82, satting 99% on room air Labs are significant for the BC count of 6.0, hemoglobin of 11.1 which is around her baseline, BUN of 30, creatinine of 2.43 with a baseline of 0.78, AST of 116, ALT of 88, UA that is positive for trace leukocyte Estrace as well as some WBC. Patient received 2 L of IV fluid with some improvement of her creatinine but not back to baseline.? Patient will be admitted for further management Hospital Course: Patient was started on IV fluids and empiric IV antibiotics for possible UTI/Pyelonephritis. She had intake and output monitored and had daily assessment of renal function. Her urine and blood cultures were followed. Blood cultures are negative at the time of d/c and urine cultures are contaminated. In light of no urinary symptoms, no fevers or leukocytosis and a negative blood/urine cultures -- antibiotics will be discontinued at the time of discharge. The likely cause of her BHANU was due to poor oral intake secondary to nausea/vomiting/constipation due chronic opiate use. She was started on a bowel regime and her GI symptoms have begun to improve. She should continue lactulose and miralax as an outpatient since she is on chronic opiate treatment. In regards to her antihypertensives -- these were held due to softer blood pressure. Her BP has began to rebound and she may resume Amlodipine in a few days. Her lisinopril has been discontinued for the time being and a repeat chemistry has been ordered for 1 week from discharge. Can resume once this is completed and she has been seen by PCP. Time Spent with Patient Time attestation: Total time spent providing and/or coordinating discharge services: Discharge coordination time: Greater than 30 minutes Quality: Stroke Does the patient have a stroke diagnosis?: No Physical Exam Vital Signs: Vital Signs: Last Vital Signs Temp 97.6 F 09/11/21 10:56 Pulse 70 09/11/21 10:56 Resp 18 09/11/21 10:56 BP 134/74 09/11/21 10:56 Pulse Ox 98 09/11/21 10:56 Body Mass Index 39.8 Const: Other: General - no acute distress, appears comfortable Cardiovascular - regular rate and rhythm, S1-S2 Lungs - normal respiratory effort, clear to auscultation bilaterally, no wheezing Abdomen - soft, nontender, no rebound or guarding Extremities - no edema bilaterally Neuro - awake and alert, no focal deficits DS: Data Data Completed and Pending Labs on day of discharge: Laboratory Results - last 24 hr 09/11/21 10:27 Sodium 138 Potassium 4.5 Chloride 106 Carbon Dioxide 27 Anion Gap 10 L BUN 15 Creatinine 0.91 Estim Creat Clear Calc 83.6 Estimated GFR > 60 Random Glucose 114 Calcium 8.7 D Discharge Plan Discharge Patient Disposition: Home, Self-Care Discharge Diagnosis: BHANU Referrals: Luisa Gerard MD [Primary Care Provider] - 1 Week Discharge Medications: New ondansetron HCl [Zofran] 4 mg tablet 4 mg PO Q8H PRN (Reason: nausea and vomiting) Qty: 10 RF: 0 Continued Flovent HFA 110 mcg/actuation HFA aerosol inhaler 2 puff PO BID Qty: 12 RF: 3 doxepin 25 mg capsule 1 cap PO BEDTIME RF: 0 hydrocodone-acetaminophen 10-325 mg tablet 1.5 tab PO Q8H PRN (Reason: Pain) RF: 0 oxybutynin chloride 5 mg tablet extended release 24hr 1 tab PO DAILY RF: 0 polyethylene glycol 3350 17 gram/dose powder 17 g PO DAILY RF: 0 lactulose 10 gram/15 mL solution 15 ml PO DAILY RF: 0 Combivent Respimat 20-100 mcg/actuation mist 1 puff PO QID PRN (Reason: Shortness Of Breath) RF: 0 topiramate 25 mg tablet 1 tab PO BEDTIME RF: 0 omeprazole 20 mg capsule,delayed release(DR/EC) 1 cap PO DAILY RF: 0 propranolol 20 mg tablet 1 tab PO BID RF: 0 tizanidine 2 mg tablet 1 mg PO BEDTIME PRN (Reason: muscle spasticity) RF: 0 hydroxyzine pamoate 25 mg capsule 25 mg PO TID PRN (Reason: Anxiety) RF: 0 albuterol sulfate 90 mcg/actuation HFA aerosol inhaler 2 puff inhalation Q6H PRN (Reason: Shortness Of Breath) RF: 0 loratadine [Claritin] 10 mg tablet 10 mg PO DAILY RF: 0 Held amlodipine 10 mg tablet 1 tab PO DAILY RF: 0 Hold Instructions: Resume on 09/15/21. Hold until 09/15/21 Discontinued lisinopril 40 mg Tablet 40 mg PO DAILY RF: 0 Discharge Orders: Discharge Order (Routine); Ordered 09/11/21 Ordered By: Joshua Rosen Diet: advance to usual diet Activity on Discharge: As tolerated Stand Alone Forms: Patient Portal Discharge page Other Ambulatory Orders: Basic Metabolic Panel (Routine) Timeframe: 1 Week Facility: [facility] - Location: Laboratory Ordered By: Joshua Rosen Care Plan Goals: To stay healthy and out of the hospital. Health Concerns: Acute Kidney Injury Constipation Plan of Treatment: Drink plenty of water Take laxatives and stool softeners Hold Amlodipine until 09/15/21; Stop Lisinopril and restart after seeing your primary care doctor. Assessment: 55 yo F admitted for BHANU, initially thought to have possible UTI/Pyelo, but this was ruled out. BHANU likely secondary to hypoveluemia from poor oral intake.
--- NOTE | 2021-09-11 11:10 | MHC.CM.PN ---
Patient has been medically cleared for dc to home today, no services.
--- NOTE | 2021-09-11 11:38 | PC.NURSE ---
Patient refused all AM medications.
== END 2021-09-11 13:05 | disposition home or self-care (01) | DRG 469 ==
LOC: HO.ED 09-10 01:14 → HO.EDOVER 09-10 02:15 → HO.IMC 09-10 07:42
PROVIDERS: Admitting Provider Internal Medicine; Emergency Provider Emergency Medicine; PCP Family Medicine; Visit Provider Family Medicine
DX: N17.9 Acute kidney failure, unspecified (principal); I95.9 Hypotension, unspecified; I10 Essential (primary) hypertension; G47.33 Obstructive sleep apnea (adult) (pediatric); J45.909 Unspecified asthma, uncomplicated; Z20.822 Contact with and (suspected) exposure to COVID-19; Z87.440 Personal history of urinary (tract) infections; Z79.51 Long term (current) use of inhaled steroids; Z88.6 Allergy status to analgesic agent; Z79.891 Long term (current) use of opiate analgesic; Z79.899 Other long term (current) drug therapy
CPT/HCPCS: 36415; 74176; 80048; 80076; 80307; 81001; 85025; 87086; 87635; 96361; 96365; 96375; 99285; J0696; J1650; J2405

== ENCOUNTER 2021-09-14 19:03 | Emergency (ER) | payer MEDICAID, SELFPAY ==
--- NOTE | ~2021-09-14 | XR_ITS ---
EXAMINATION: XR CHEST CLINICAL INFORMATION: Swelling COMPARISON: Chest radiograph 11/18/2020 TECHNIQUE: Frontal view of the chest was obtained. FINDINGS: No significant abnormality is noted involving the heart, lungs, mediastinum, bony thorax or soft tissues. XR/XR chest 1V IMPRESSION: Unremarkable examination.
[2021-09-14 19:40] VITALS: BP 143/44; PULSE 98; RESP 18; TEMP 36.9; O2SAT 97; BMI 39.8
[2021-09-14 21:03] VITALS: BP 123/58; PULSE 83; RESP 15; TEMP 36.2; O2SAT 95
--- NOTE | 2021-09-14 21:04 | ECG_ITS ---
Test Reason : LEG SWELLING Blood Pressure : / mmHG Vent. Rate : 092 BPM Atrial Rate : 092 BPM P-R Int : 150 ms QRS Dur : 080 ms QT Int : 356 ms P-R-T Axes : 047 033 040 degrees QTc Int : 440 ms Normal sinus rhythm RSR' or QR pattern in V1 suggests right ventricular conduction delay Otherwise normal ECG When compared with ECG of 18-NOV-2020 18:25, T wave amplitude has decreased in Lateral leads QT has shortened Referred By: Generic ED Physician Electronically Signed By:VICTOR HUGO AMEZQUITA MD
--- NOTE | 2021-09-14 21:42 | PC.NURSE ---
pt a&o no sob or chest pain. Iv placed and labs collected and sent. Ekg completed.
[2021-09-14 21:45] LABS: MANUAL DIFF FLAG NO
[2021-09-14 21:47] LABS: Basophils Percent Auto 0.6 % (0-2); Eosinophils Absolute Auto 0.2 X10*3/uL (0.0-0.4); Eosinophils Percent Auto 4.6 % (0-4); Hematocrit 36.8 % (37.0-47.0); Hemoglobin 11.8 g/dl (12.0-16.0); Imm Gran Abs Auto 0.01 X10*3/uL (0.00-0.03); Imm Gran Pct Auto 0.2 % (0.0-0.4); Lymphocytes Absolute Auto 1.5 X10*3/uL (1.2-4.9); Lymphocytes Percent Auto 28.5 % (20-40); Mean Corpuscular HGB Conc 32.1 g/dl (31.0-35.0); Mean Corpuscular Hemoglobin 29.9 pg (27.0-33.0); Mean Corpuscular Volume 93.4 fL (80.0-98.0); Mean Platelet Volume 10.2 fL (9.4-12.3); Monocytes Absolute Auto 0.7 X10*3/uL (0.1-1.2); Monocytes Percent Auto 12.6 % (2-11); Neutrophils Absolute Auto 2.8 x10*3/uL (2.0-8.3); Neutrophils Percent Auto 53.5 % (45-73); Platelet Count 218 X10*3/uL (160-400); Red Blood Count 3.94 X10*6/uL (4.20-5.50); Red Cell Distribution Width 16.4 % (11.0-16.0); White Blood Count 5.2 X10*3/uL (4.8-10.8)
[2021-09-14 21:59] LABS: Anion Gap 14 (12-20); Blood Urea Nitrogen 12 mg/dL (9-16); Calcium 8.7 mg/dL (8.4-10.2); Carbon Dioxide 25 mmol/L (22-29); Chloride 105 mmol/L (96-108); Creatinine Clr Calc Pharmacy 84.5; Estimated Glomerular Filt Rate > 60; Glucose Random 85 mg/dL (60-115); Potassium 4.2 mmol/L (3.3-5.1); Sodium 140 mmol/L (135-145)
[2021-09-14 22:06] LABS: B Type Natriuretic Peptide 51 pg/mL (<100)
--- NOTE | 2021-09-14 22:33 | ED.GENADULT ---
HPI - General Adult General Chief complaint: Extremity Problem Stated complaint: feet swelling Time Seen by Provider: 09/14/21 22:18 Source: patient History of Present Illness HPI narrative: Patient complaining of bilateral lower extremity edema, right more than left. Similar history in the past but not as severe. Patient was recently hospitalized for kidney injury and treated with IV fluids with improvement of her creatinine. She denies any injuries. No history of thromboembolic disease and has had ultrasounds with negative DVTs in the past. No chest pain or shortness of breath. No fevers or chills. No other acute issues or concerns Related Data Home Medications Medication Instructions Recorded Confirmed hydroxyzine pamoate 25 mg capsule 25 mg PO TID PRN 09/23/20 09/09/21 loratadine 10 mg tablet (Claritin) 10 mg PO DAILY 01/16/21 09/09/21 albuterol sulfate 90 mcg/actuation 2 puff INHALATION Q6H PRN 03/27/21 09/09/21 aerosol inhaler magnesium chloride 64 mg 64 mg PO BEDTIME 08/15/21 09/09/21 (magnesium chloride) tablet,delayed release montelukast 10 mg tablet 10 mg PO BEDTIME 08/15/21 09/09/21 tramadol 50 mg tablet 50 mg PO BID PRN 08/15/21 amlodipine 10 mg tablet 1 tab PO DAILY 09/09/21 09/09/21 doxepin 25 mg capsule 1 cap PO BEDTIME 09/09/21 09/09/21 hydrocodone 10 mg-acetaminophen 1.5 tab PO Q8H PRN 09/09/21 09/09/21 325 mg tablet ipratropium 20 mcg-albuterol 100 1 puff PO QID PRN 09/09/21 09/09/21 mcg/actuation mist for inhalation (Combivent Respimat) lactulose 10 gram/15 mL oral 15 ml PO DAILY 09/09/21 09/09/21 solution omeprazole 20 mg capsule,delayed 1 cap PO DAILY 09/09/21 09/09/21 release oxybutynin chloride 5 mg 1 tab PO DAILY 09/09/21 09/09/21 tablet,extended release 24 hr polyethylene glycol 3350 17 17 g PO DAILY 09/09/21 09/09/21 gram/dose oral powder propranolol 20 mg tablet 1 tab PO BID 09/09/21 09/09/21 tizanidine 2 mg tablet 1 mg PO BEDTIME PRN 09/09/21 09/09/21 topiramate 25 mg tablet 1 tab PO BEDTIME 09/09/21 09/09/21 Previous Rx's Medication Instructions Recorded fluticasone propionate 110 2 puff PO BID #12 g 07/21/21 mcg/actuation HFA aerosol inhaler (Flovent HFA) ondansetron HCl 4 mg tablet 4 mg PO Q8H PRN #10 tab 09/11/21 (Zofran) Allergies Allergy/AdvReac Type Severity Reaction Status Date / Time aspirin [ASPIRIN] Allergy Unknown RASH Verified 03/27/21 15:09 Review of Systems Constitutional: Constitutional: Denies fever(s) Cardiovascular: Comments: No chest pain Respiratory: Comments: No shortness of breath or cough Gastrointestinal: Comments: No abdominal pain, no nausea no vomiting Musculoskeletal: Comments: Bilateral pedal edema right slightly worse than left Integumentary/Breasts: Comments: Chronic pruritus Neurologic: Comments: No focal deficit [facility] Past Medical History Medical History (Updated 09/14/21 @ 22:37 by Wilmar Larry MD) Asthma Cough Hypertension Morbid obesity Nocturnal hypoxemia due to primary pulmonary hypertension TEODORA (obstructive sleep apnea) Restrictive lung disease Surgical History History of cholecystectomy Family History Family History (Updated 09/10/21 @ 06:05 by Pallavi Díaz MD) Mother Skin cancer Social History Social History Household Members: Other Household Members Other:: roommate Housing: House Do you presently have visiting nurse or other home services: No Alcohol intake: current Alcohol intake frequency: holidays/special occasions only Alcohol type: hard liquor Patient Tobacco Use Status: Never used Tobacco Use of substances other than those prescribed or required for medical reasons: No Advance Directives: No Advance Directives Information Provided: Yes Patient : No service: No Current occupational status: unemployed Physical Exam Vital Signs: Vital Signs: Last Vital Signs Temp 97.2 F 09/14/21 21:03 Pulse 83 09/14/21 21:03 Resp 15 09/14/21 21:03 BP 123/58 L 09/14/21 21:03 Pulse Ox 95 09/14/21 21:03 Body Mass Index 39.8 Const: Other: Awake alert no acute distress Resp: Other: Clear and equal bilaterally without wheezes rales or rhonchi Cardio: Other: Regular rate and rhythm without murmurs rubs or gallops GI: Other: Soft nontender nondistended Skin: Other: Warm pink and dry. Diffuse areas of excoriation. No evidence of cellulitis Extrem: Other: Bilateral pitting pedal edema 1 to 2+. Right worse than left Course Course Course Narrative: Lymphedema Given prior workups in no history of thromboembolic disease, DVT is very unlikely. I discussed this with patient and will opt to treat symptomatically with compression stockings. Will hold the diuretics due to recent renal injury Medical Decision Making Lab Data Result diagrams: 09/14/21 21:39 09/14/21 21:39 Labs: Lab Results 09/14/21 09/14/21 09/14/21 Range/Units 21:39 21:39 21:39 WBC 5.2 (4.8-10.8) X10*3/uL RBC 3.94 L (4.20-5.50) X10*6/uL Hgb 11.8 L (12.0-16.0) g/dl Hct 36.8 L (37.0-47.0) % MCV 93.4 (80.0-98.0) fL MCH 29.9 (27.0-33.0) pg MCHC 32.1 (31.0-35.0) g/dl RDW 16.4 H (11.0-16.0) % Plt Count 218 D (160-400) X10*3/uL MPV 10.2 (9.4-12.3) fL Immature Gran % (Auto) 0.2 (0.0-0.4) % Neut % (Auto) 53.5 (45-73) % Lymph % (Auto) 28.5 (20-40) % [place] % (Auto) 12.6 H (2-11) % Eos % (Auto) 4.6 H (0-4) % Baso % (Auto) 0.6 (0-2) % Lymph # (Auto) 1.5 (1.2-4.9) X10*3/uL [place] # (Auto) 0.7 (0.1-1.2) X10*3/uL Eos # (Auto) 0.2 (0.0-0.4) X10*3/uL Baso # (Auto) 0.0 (0.0-0.2) X10*3/uL Abs Immat Gran (auto) 0.01 (0.00-0.03) X10*3/uL Absolute Neuts (auto) 2.8 (2.0-8.3) x10*3/uL Absolute Nucleated RBC 0.000 (0.0-0.012) X10*3/uL Nucleated RBC % (auto) 0.0 (0.0-0.2) /100WBC Sodium 140 (135-145) mmol/L Potassium 4.2 (3.3-5.1) mmol/L Chloride 105 (96-108) mmol/L Carbon Dioxide 25 (22-29) mmol/L Anion Gap 14 (12-20) BUN 12 (9-16) mg/dL Creatinine 0.90 (0.5-1.4) mg/dL Estim Creat Clear Calc 84.5 Estimated GFR > 60 Random Glucose 85 (60-115) mg/dL Calcium 8.7 (8.4-10.2) mg/dL Troponin I High Sens 4.0 (<3.5-17.0) ng/L B-Natriuretic Peptide 51 (<100) pg/mL Discharge Plan Discharge Clinical Impression: Lower extremity edema Patient Disposition: Home, Self-Care Instructions: Leg Edema (ED) Prescriptions: No Action Flovent HFA 110 mcg/actuation HFA aerosol inhaler 2 puff PO BID Qty: 12 RF: 3 doxepin 25 mg capsule 1 cap PO BEDTIME RF: 0 hydrocodone-acetaminophen 10-325 mg tablet 1.5 tab PO Q8H PRN (Reason: Pain) RF: 0 oxybutynin chloride 5 mg tablet extended release 24hr 1 tab PO DAILY RF: 0 polyethylene glycol 3350 17 gram/dose powder 17 g PO DAILY RF: 0 lactulose 10 gram/15 mL solution 15 ml PO DAILY RF: 0 Combivent Respimat 20-100 mcg/actuation mist 1 puff PO QID PRN (Reason: Shortness Of Breath) RF: 0 topiramate 25 mg tablet 1 tab PO BEDTIME RF: 0 amlodipine 10 mg tablet 1 tab PO DAILY RF: 0 Hold Instructions: Resume on 09/15/21. Hold until 09/15/21 omeprazole 20 mg capsule,delayed release(DR/EC) 1 cap PO DAILY RF: 0 propranolol 20 mg tablet 1 tab PO BID RF: 0 tizanidine 2 mg tablet 1 mg PO BEDTIME PRN (Reason: muscle spasticity) RF: 0 ondansetron HCl [Zofran] 4 mg tablet 4 mg PO Q8H PRN (Reason: nausea and vomiting) Qty: 10 RF: 0 hydroxyzine pamoate 25 mg capsule 25 mg PO TID PRN (Reason: Anxiety) RF: 0 albuterol sulfate 90 mcg/actuation HFA aerosol inhaler 2 puff inhalation Q6H PRN (Reason: Shortness Of Breath) RF: 0 loratadine [Claritin] 10 mg tablet 10 mg PO DAILY RF: 0
[2021-09-14 22:49] VITALS: RESP 16
== END 2021-09-14 22:53 | disposition home or self-care (01) ==
PROVIDERS: Emergency Provider Emergency Medicine; PCP Family Medicine
DX: R60.0 Localized edema (principal); R06.02 Shortness of breath; Z79.899 Other long term (current) drug therapy
CPT/HCPCS: 36415; 71045; 80048; 83880; 84484; 85025; 93005; 99283; 99284

== ENCOUNTER 2021-09-30 06:29 | Outpatient (REF) | payer MEDICAID, SELFPAY ==
--- NOTE | ~2021-09-30 | FL_ITS ---
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 COMPARISON: None. TECHNIQUE: Fluoroscopy performed by Dr. Magaña. Fluoroscopy time: 0.7 minutes DAP: 10.0 Gycm2 Images: 5 FINDINGS: Bilateral L4-L5 and L5-S1 neural foraminal injections were performed. FL/FL guidance in treatment room IMPRESSION: Fluoroscopic assistance at the time of the above-mentioned procedure. Please refer to the procedural note for further full details.
== END 2021-09-30 06:30 | disposition home or self-care (01) ==
LOC: HO.RADIR 06:29
PROVIDERS: Visit Provider Anesthesiology
DX: M47.819 Spondylosis without myelopathy or radiculopathy, site unspecified (principal); M79.18 Myalgia, other site
CPT/HCPCS: 64493; 64494; Q9967

== ENCOUNTER → 2021-10-07 14:18 | Outpatient (BNVA) | payer MEDICAID, SELFPAY | PROVIDERS: PCP Family Medicine; Visit Provider Nurse Practitioner Family ==

== ENCOUNTER 2021-10-11 08:55 | Emergency (ER) | payer MEDICAID, SELFPAY ==
--- NOTE | ~2021-10-11 | CT_ITS ---
EXAMINATION: CT ABDOMEN AND PELVIS WITH CONTRAST CLINICAL INFORMATION: Pain. Nausea and vomiting COMPARISON: 09/10/2021 TECHNIQUE: Multidetector volumetric images were obtained from the superior aspect of the liver through the pubic symphysis following administration 85 mL of Omnipaque 350 intravenous contrast. Sagittal and coronal reformatted images were obtained on the technologist's workstation. Oral contrast: No This CT examination was performed using dose optimization techniques as appropriate, variously including the following: *Automated exposure control *Adjustment of mA and/or kV according to patient size (this includes techniques or standardized protocols for targeted exams where dose is matched to indication/reason for exam; i.e. extremities or head) *Use of iterative reconstruction technique DLP: 935 mGy-cm FINDINGS: LUNG BASES: The visualized lung bases are unremarkable. LIVER, GALLBLADDER, AND BILIARY TREE: Changes of severe hepatic steatosis. No discrete lesion. Hepatic and portal vessels patent. No biliary ductal dilatation. Clips consistent with cholecystectomy. No definite choledocholithiasis. PANCREAS: Unremarkable. SPLEEN: Unremarkable. ADRENAL GLANDS: Unremarkable. KIDNEYS AND URETERS: The kidneys are normal in size, shape, and attenuation. No hydronephrosis, hydroureter, or calculi seen. No perinephric stranding. BLADDER: Unremarkable. GASTROINTESTINAL TRACT: The small and large bowel are unremarkable. The appendix is unremarkable. ABDOMINAL WALL: No significant hernia is appreciated. LYMPH NODES: Normal. VASCULAR: Unremarkable. PELVIC VISCERA: Unremarkable. OSSEOUS STRUCTURES: Unremarkable. CT/CT abdomen pelvis w con IMPRESSION: No significant abnormality. No focal lesion to explain patient's symptoms. Diffuse hepatic steatosis. No acute inflammatory changes. Fleischner guidelines were followed.
[2021-10-11 08:58] VITALS: BP 153/70; PULSE 88; RESP 19; TEMP 36.6; O2SAT 100; BMI 37.8
[2021-10-11 09:38] VITALS: BP 154/72; PULSE 98; RESP 17; TEMP 36.9; O2SAT 93
--- NOTE | 2021-10-11 09:45 | ED.NAVMDI ---
HPI - Nausea/Vomiting/Diarrhea General Chief complaint: Nausea/Vomiting/Diarrhea <DELORIS Weller Last Filed: 10/11/21 13:57> Stated complaint: Can't stop vomiting <DELORIS Weller Last Filed: 10/11/21 13:57> Time Seen by Provider: 10/11/21 09:31 <DELORIS Weller Last Filed: 10/11/21 13:57> Source: patient <DELORIS Weller Last Filed: 10/11/21 13:57> Mode of arrival: ambulatory <DELORIS Weller Last Filed: 10/11/21 13:57> Limitations: no limitations <DELORIS Weller Last Filed: 10/11/21 13:57> History of Present Illness HPI Narrative: 55 yo female with history of TEODORA, obesity, restrictive lung disease, PAH, chronic low back pain followed by Pain management, hx cholecystectomy who presents to the ER with nausea and vomiting for the last 4-5 days. She also reports diffuse abdominal pain. She reports the pain started before the vomiting and all across her abdomen. She has had a few episodes of loose stools as well. No fevers, chills, SOB or chest pain. No known sick contacts. She states she vomited countless times yesterday and 4 times already this morning. Every time she tries to eat or drink anything it comes back up. <DELORIS Weller Last Filed: 10/11/21 13:57> MD elicited complaint: nausea, vomiting and abdominal pain <DELORIS Weller Last Filed: 10/11/21 13:57> Onset (ago): day(s) (4-5) <DELORIS Weller Last Filed: 10/11/21 13:57> Description of vomiting: food contents and continuous <DELORIS Weller Last Filed: 10/11/21 13:57> Description of diarrhea: loose <DELORIS Weller Last Filed: 10/11/21 13:57> Associated nausea: Yes <DELORIS Weller Last Filed: 10/11/21 13:57> Associated abdominal pain: Yes <DELORIS Weller Last Filed: 10/11/21 13:57> Location of pain: diffuse <DELORIS Weller - Last Filed: 10/11/21 13:57> Radiation: diffuse <DELORIS Weller - Last Filed: 10/11/21 13:57> Pain consistency: intermittent <DELORIS Weller - Last Filed: 10/11/21 13:57> Severity: moderate <DELORIS Weller - Last Filed: 10/11/21 13:57> Pain scale (0-10): 6 <DELORIS Weller - Last Filed: 10/11/21 13:57> Quality: stabbing and aching <DELORIS Weller - Last Filed: 10/11/21 13:57> Exacerbating factors: eating <DELORIS Weller - Last Filed: 10/11/21 13:57> Relieving factors: none <DELORIS Weller - Last Filed: 10/11/21 13:57> Associated symptoms: myalgias, fever/chills, loss of appetite, malaise, nausea/vomiting and weakness <DELORIS Weller - Last Filed: 10/11/21 13:57> Related Data Home medications: Home Medications Medication Instructions Recorded Confirmed hydroxyzine pamoate 25 mg capsule 25 mg PO TID PRN 09/23/20 09/09/21 loratadine 10 mg tablet (Claritin) 10 mg PO DAILY 01/16/21 09/09/21 albuterol sulfate 90 mcg/actuation 2 puff INHALATION Q6H PRN 03/27/21 09/09/21 aerosol inhaler magnesium chloride 64 mg 64 mg PO BEDTIME 08/15/21 09/09/21 (magnesium chloride) tablet,delayed release montelukast 10 mg tablet 10 mg PO BEDTIME 08/15/21 09/09/21 tramadol 50 mg tablet 50 mg PO BID PRN 08/15/21 amlodipine 10 mg tablet 1 tab PO DAILY 09/09/21 09/09/21 doxepin 25 mg capsule 1 cap PO BEDTIME 09/09/21 09/09/21 hydrocodone 10 mg-acetaminophen 1.5 tab PO Q8H PRN 09/09/21 09/09/21 325 mg tablet ipratropium 20 mcg-albuterol 100 1 puff PO QID PRN 09/09/21 09/09/21 mcg/actuation mist for inhalation (Combivent Respimat) lactulose 10 gram/15 mL oral 15 ml PO DAILY 09/09/21 09/09/21 solution omeprazole 20 mg capsule,delayed 1 cap PO DAILY 09/09/21 09/09/21 release oxybutynin chloride 5 mg 1 tab PO DAILY 09/09/21 09/09/21 tablet,extended release 24 hr polyethylene glycol 3350 17 17 g PO DAILY 09/09/21 09/09/21 gram/dose oral powder propranolol 20 mg tablet 1 tab PO BID 09/09/21 09/09/21 tizanidine 2 mg tablet 1 mg PO BEDTIME PRN 09/09/21 09/09/21 topiramate 25 mg tablet 1 tab PO BEDTIME 09/09/21 09/09/21 Previous Rx's Medication Instructions Recorded fluticasone propionate 110 2 puff PO BID #12 g 07/21/21 mcg/actuation HFA aerosol inhaler (Flovent HFA) ondansetron HCl 4 mg tablet 4 mg PO Q8H PRN #10 tab 09/11/21 (Zofran) cyclobenzaprine 5 mg tablet 5 mg PO BID PRN #60 tab 10/07/21 metoclopramide HCl 10 mg tablet 10 mg PO Q6H PRN #10 tab 10/11/21 (Reglan) ondansetron 4 mg disintegrating 4 mg PO Q8H PRN #7 tab 10/11/21 tablet <DELORIS Weller - Last Filed: 10/11/21 13:57> Allergies/Adverse reactions: Allergies Allergy/AdvReac Type Severity Reaction Status Date / Time aspirin [ASPIRIN] Allergy Unknown RASH Verified 09/30/21 14:05 <DELORIS Weller - Last Filed: 10/11/21 13:57> Review of Systems Review of Systems: Constitutional: No Fever, No Chills ENT/Mouth: No sore throat, No Rhinorrhea, No Swallowing Difficulty Cardiovascular: No Chest Pain, No SOB, No Orthopnea, No Edema Respiratory: No Cough, No Sputum, No Wheezing, No dyspnea Gastrointestinal: + Nausea, + Vomiting, + Diarrhea, + abdominal Pain Genitourinary: No Dysuria, No Urinary Frequency, No Hematuria Musculoskeletal: No joint pain, + Myalgias Skin: No Skin Lesions, No rash Neuro: + Weakness, No Numbness, No Dizziness, No Headache Psych: No Anxiety/Panic, No Depression Heme/Lymph: No Bruising, No Lymphadenopathy Endocrine: No Polyuria, No Polydipsia <DELORIS Weller - Last Filed: 10/11/21 13:57> Gastrointestinal: Gastrointestinal: Reports nausea <DELORIS Weller - Last Filed: 10/11/21 13:57> [facility] Past Medical History Medical History: Medical History (Updated 10/11/21 @ 13:55 by DELORIS Weller) Asthma Cough Hypertension Kidney failure Morbid obesity Nocturnal hypoxemia due to primary pulmonary hypertension TEODORA (obstructive sleep apnea) Restrictive lung disease <DELORIS Weller - Last Filed: 10/11/21 13:57> Surgical History: Surgical History History of cholecystectomy <DELORIS Weller - Last Filed: 10/11/21 13:57> Family History Family History: Family History (Updated 09/10/21 @ 06:05 by Pallavi Díaz MD) Mother Skin cancer <DELORIS Weller - Last Filed: 10/11/21 13:57> Social History Social History: Social History Household Members: Other Household Members Other:: roommate Housing: House Do you presently have visiting nurse or other home services: No Alcohol intake: current Alcohol intake frequency: 0-2 drinks per day Alcohol type: hard liquor Patient Tobacco Use Status: Never used Tobacco Use of substances other than those prescribed or required for medical reasons: No Advance Directives: No Advance Directives Information Provided: Yes Patient : No service: No Current occupational status: unemployed <DELORIS Weller - Last Filed: 10/11/21 13:57> Physical Exam Vital Signs: Vital Signs: Last Vital Signs Temp 98.4 F 10/11/21 09:38 Pulse 108 H 10/11/21 12:17 Resp 16 10/11/21 12:17 BP 128/52 L 10/11/21 12:17 Pulse Ox 96 10/11/21 12:17 BMI result Body Mass Index 37.8 <DELORIS Weller Last Filed: 10/11/21 13:57> Vital Signs: Last Vital Signs Temp 98.4 F 10/11/21 09:38 Pulse 108 H 10/11/21 12:17 Resp 16 10/11/21 12:17 BP 128/52 L 10/11/21 12:17 Pulse Ox 96 10/11/21 12:17 BMI result Body Mass Index 37.8 <DELORIS Parsons - Last Filed: 10/11/21 15:57> Appearance: Alert. Oriented X3. No acute distress. Eyes: Pupils equal, round and reactive to light. ENT: Pharynx normal. Neck: Normal inspection. Neck supple. CVS: Normal heart rate and rhythm. Pulses normal. Respiratory: No respiratory distress. Breath sounds normal. Abdomen: Softly distended and diffusely tender without rebound or guarding. +BS x4 Skin: Skin warm and dry. Normal skin color. Normal skin turgor. No rashes. Extremities: No lower extremity edema. Neuro: Oriented X 3. No motor deficit. No sensory deficit. <DELORIS Weller Last Filed: 10/11/21 13:57> Course Course Course Narrative: 55 y/o female presents with 4-5 days of nausea, vomiting and diffuse abdominal pain. Will get labs and CT scan for further evaluation. IVF and Zofran ordered. <DELORIS Weller Last Filed: 10/11/21 13:57> Reevaluation(s) Reevaluation #1: Labs with some mild LFT elevation. Bilirubins are normal. She has no right upper quadrant tenderness status post cholecystectomy. Doubt retained stone. No white blood cell count elevation. Her H&H is increased along with elevated calcium most consistent with hemoconcentration and dehydration. 2 L IV fluids ordered as well. She continues to complain severe nausea. She has not vomited while in the ER. Will give IV Reglan and Benadryl and reassess. The scan of the abdomen is still pending. <DELORIS Weller Last Filed: 10/11/21 13:57> Reevaluation #2: CT scan with no acute findings. She has been given Reglan and Benadryl. Will give p.o. trial. If tolerating she is stable for discharge home with Zofran & management for gastroenteritis. <DELORIS Weller - Last Filed: 10/11/21 13:57> Reevaluation #3: -1405--patient tolerated p.o. without nausea or vomiting. Reports symptomatic improvement in the ED. Requesting prescription for Reglan and Zofran. <DELORIS Parsons - Last Filed: 10/11/21 15:57> MDM - Nausea/Vomiting/Diarrhea Lab Data Result diagrams: : 10/11/21 10:09 10/11/21 10:09 <DELORIS Weller - Last Filed: 10/11/21 13:57> Labs: Lab Results 10/11/21 10/11/21 10/11/21 Range/Units 10:09 10:09 10:09 WBC 8.6 (4.8-10.8) X10*3/uL RBC 4.80 D (4.20-5.50) X10*6/uL Hgb 14.7 D (12.0-16.0) g/dl Hct 44.5 D (37.0-47.0) % MCV 92.7 (80.0-98.0) fL MCH 30.6 (27.0-33.0) pg MCHC 33.0 (31.0-35.0) g/dl RDW 14.3 (11.0-16.0) % Plt Count 227 (160-400) X10*3/uL MPV 10.5 (9.4-12.3) fL Immature Gran % (Auto) 0.3 (0.0-0.4) % Neut % (Auto) 75.0 H (45-73) % Lymph % (Auto) 11.2 L (20-40) % Robertson % (Auto) 12.4 H (2-11) % Eos % (Auto) 0.8 (0-4) % Baso % (Auto) 0.3 (0-2) % Lymph # (Auto) 1.0 L (1.2-4.9) X10*3/uL Robertson # (Auto) 1.1 (0.1-1.2) X10*3/uL Eos # (Auto) 0.1 (0.0-0.4) X10*3/uL Baso # (Auto) 0.0 (0.0-0.2) X10*3/uL Abs Immat Gran (auto) 0.03 (0.00-0.03) X10*3/uL Absolute Neuts (auto) 6.5 (2.0-8.3) x10*3/uL Absolute Nucleated RBC 0.000 (0.0-0.012) X10*3/uL Nucleated RBC % (auto) 0.0 (0.0-0.2) /100WBC Sodium 138 (135-145) mmol/L Potassium 3.5 (3.3-5.1) mmol/L Chloride 92 L (96-108) mmol/L Carbon Dioxide 29 (22-29) mmol/L Anion Gap 21 H (12-20) BUN 15 (9-16) mg/dL Creatinine 1.02 (0.5-1.4) mg/dL Estim Creat Clear Calc 72.4 Estimated GFR 56 Random Glucose 110 (60-115) mg/dL Calcium 10.7 H D (8.4-10.2) mg/dL Magnesium 1.6 (1.6-2.6) mg/dL Total Bilirubin 1.0 (0.0-1.0) mg/dL Direct Bilirubin 0.5 (0.0-0.5) mg/dL AST 244 H (5-31) U/L ALT 160 H (0-31) U/L Alkaline Phosphatase 136 H (39-117) U/L Total Protein 8.3 H D (6.5-8.0) g/dL Albumin 4.7 D (3.5-5.0) g/dL Influenza Type A (PCR) NEGATIVE (Negative) Influenza Type B (PCR) NEGATIVE (Negative) RSV RNA Qual (PCR) NEGATIVE (Negative) SARS-CoV-2 RNA (RT-PCR) NEGATIVE (Negative) <DELORIS Weller - Last Filed: 10/11/21 13:57> Lab Results 10/11/21 10/11/21 10/11/21 Range/Units 10:09 10:09 10:09 WBC 8.6 (4.8-10.8) X10*3/uL RBC 4.80 D (4.20-5.50) X10*6/uL Hgb 14.7 D (12.0-16.0) g/dl Hct 44.5 D (37.0-47.0) % MCV 92.7 (80.0-98.0) fL MCH 30.6 (27.0-33.0) pg MCHC 33.0 (31.0-35.0) g/dl RDW 14.3 (11.0-16.0) % Plt Count 227 (160-400) X10*3/uL MPV 10.5 (9.4-12.3) fL Immature Gran % (Auto) 0.3 (0.0-0.4) % Neut % (Auto) 75.0 H (45-73) % Lymph % (Auto) 11.2 L (20-40) % Robertson % (Auto) 12.4 H (2-11) % Eos % (Auto) 0.8 (0-4) % Baso % (Auto) 0.3 (0-2) % Lymph # (Auto) 1.0 L (1.2-4.9) X10*3/uL Robertson # (Auto) 1.1 (0.1-1.2) X10*3/uL Eos # (Auto) 0.1 (0.0-0.4) X10*3/uL Baso # (Auto) 0.0 (0.0-0.2) X10*3/uL Abs Immat Gran (auto) 0.03 (0.00-0.03) X10*3/uL Absolute Neuts (auto) 6.5 (2.0-8.3) x10*3/uL Absolute Nucleated RBC 0.000 (0.0-0.012) X10*3/uL Nucleated RBC % (auto) 0.0 (0.0-0.2) /100WBC Sodium 138 (135-145) mmol/L Potassium 3.5 (3.3-5.1) mmol/L Chloride 92 L (96-108) mmol/L Carbon Dioxide 29 (22-29) mmol/L Anion Gap 21 H (12-20) BUN 15 (9-16) mg/dL Creatinine 1.02 (0.5-1.4) mg/dL Estim Creat Clear Calc 72.4 Estimated GFR 56 Random Glucose 110 (60-115) mg/dL Calcium 10.7 H D (8.4-10.2) mg/dL Magnesium 1.6 (1.6-2.6) mg/dL Total Bilirubin 1.0 (0.0-1.0) mg/dL Direct Bilirubin 0.5 (0.0-0.5) mg/dL AST 244 H (5-31) U/L ALT 160 H (0-31) U/L Alkaline Phosphatase 136 H (39-117) U/L Total Protein 8.3 H D (6.5-8.0) g/dL Albumin 4.7 D (3.5-5.0) g/dL Influenza Type A (PCR) NEGATIVE (Negative) Influenza Type B (PCR) NEGATIVE (Negative) RSV RNA Qual (PCR) NEGATIVE (Negative) SARS-CoV-2 RNA (RT-PCR) NEGATIVE (Negative) <DELORIS Parsons - Last Filed: 10/11/21 15:57> Discharge Plan Discharge Clinical Impression: Gastroenteritis <DELORIS Weller - Last Filed: 10/11/21 13:57> Patient Disposition: Home, Self-Care <DELORIS Weller - Last Filed: 10/11/21 13:57> Instructions: Gastroenteritis (ED), Acute Nausea and Vomiting (ED) <DELORIS Weller - Last Filed: 10/11/21 13:57> Additional Instructions: Your CT scan did not show any acute findings. Your most likely suffering from an acute GI bug, this hopefully resolve in the next 1-2 days. Recommend a bland diet while you are not feeling well. Take the prescribed nausea medication as needed. Follow-up with your doctor this week. If you develop new or worsening symptoms call 911 or come back to the ER for further evaluation. <DELORIS Weller - Last Filed: 10/11/21 13:57> Prescriptions: New ondansetron 4 mg tablet,disintegrating 4 mg PO Q8H PRN (Reason: nausea and vomiting) Qty: 7 RF: 0 metoclopramide HCl [Reglan] 10 mg tablet 10 mg PO Q6H PRN (Reason: nausea and vomiting) Qty: 10 RF: 0 No Action Flovent HFA 110 mcg/actuation HFA aerosol inhaler 2 puff PO BID Qty: 12 RF: 3 doxepin 25 mg capsule 1 cap PO BEDTIME RF: 0 hydrocodone-acetaminophen 10-325 mg tablet 1.5 tab PO Q8H PRN (Reason: Pain) RF: 0 oxybutynin chloride 5 mg tablet extended release 24hr 1 tab PO DAILY RF: 0 polyethylene glycol 3350 17 gram/dose powder 17 g PO DAILY RF: 0 lactulose 10 gram/15 mL solution 15 ml PO DAILY RF: 0 Combivent Respimat 20-100 mcg/actuation mist 1 puff PO QID PRN (Reason: Shortness Of Breath) RF: 0 topiramate 25 mg tablet 1 tab PO BEDTIME RF: 0 amlodipine 10 mg tablet 1 tab PO DAILY RF: 0 Hold Instructions: Resume on 09/15/21. Hold until 09/15/21 omeprazole 20 mg capsule,delayed release(DR/EC) 1 cap PO DAILY RF: 0 propranolol 20 mg tablet 1 tab PO BID RF: 0 tizanidine 2 mg tablet 1 mg PO BEDTIME PRN (Reason: muscle spasticity) RF: 0 ondansetron HCl [Zofran] 4 mg tablet 4 mg PO Q8H PRN (Reason: nausea and vomiting) Qty: 10 RF: 0 hydroxyzine pamoate 25 mg capsule 25 mg PO TID PRN (Reason: Anxiety) RF: 0 albuterol sulfate 90 mcg/actuation HFA aerosol inhaler 2 puff inhalation Q6H PRN (Reason: Shortness Of Breath) RF: 0 loratadine [Claritin] 10 mg tablet 10 mg PO DAILY RF: 0 cyclobenzaprine 5 mg tablet 5 mg PO BID PRN (Reason: muscle spasm) Qty: 60 RF: 0 <DELORIS Weller - Last Filed: 10/11/21 13:57> Stand Alone Forms: Work/School Release <DELORIS Weller - Last Filed: 10/11/21 13:57>
[2021-10-11] MEDS: 0.9 % Sodium Chloride 1,000 ML 999 ML IVCONT (10:09)
[2021-10-11] MEDS: ondansetron HCL 4 MG/2 ML VIAL IVPUSH (10:10)
[2021-10-11 10:12] VITALS: BP 136/51; PULSE 109; RESP 20; O2SAT 94
[2021-10-11 10:14] LABS: MANUAL DIFF FLAG NO
[2021-10-11 10:15] LABS: Basophils Percent Auto 0.3 % (0-2); Eosinophils Absolute Auto 0.1 X10*3/uL (0.0-0.4); Eosinophils Percent Auto 0.8 % (0-4); Hematocrit 44.5 % (37.0-47.0); Hemoglobin 14.7 g/dl (12.0-16.0); Imm Gran Abs Auto 0.03 X10*3/uL (0.00-0.03); Imm Gran Pct Auto 0.3 % (0.0-0.4); Lymphocytes Percent Auto 11.2 % (20-40); Mean Corpuscular Hemoglobin 30.6 pg (27.0-33.0); Mean Corpuscular Volume 92.7 fL (80.0-98.0); Mean Platelet Volume 10.5 fL (9.4-12.3); Monocytes Absolute Auto 1.1 X10*3/uL (0.1-1.2); Monocytes Percent Auto 12.4 % (2-11); Neutrophils Absolute Auto 6.5 x10*3/uL (2.0-8.3); Platelet Count 227 X10*3/uL (160-400); Red Cell Distribution Width 14.3 % (11.0-16.0); White Blood Count 8.6 X10*3/uL (4.8-10.8)
[2021-10-11 10:39] LABS: Alanine Aminotransferase 160 U/L (0-31); Albumin Level 4.7 g/dL (3.5-5.0); Alkaline Phosphatase 136 U/L (39-117); Anion Gap 21 (12-20); Aspartate Amino Transferase 244 U/L (5-31); Bilirubin Direct 0.5 mg/dL (0.0-0.5); Blood Urea Nitrogen 15 mg/dL (9-16); Calcium 10.7 mg/dL (8.4-10.2); Carbon Dioxide 29 mmol/L (22-29); Chloride 92 mmol/L (96-108); Creatinine Clr Calc Pharmacy 72.4; Estimated Glomerular Filt Rate 56; Glucose Random 110 mg/dL (60-115); Magnesium 1.6 mg/dL (1.6-2.6); Potassium 3.5 mmol/L (3.3-5.1); Sodium 138 mmol/L (135-145); Total Protein 8.3 g/dL (6.5-8.0)
[2021-10-11 10:56] LABS: Influenza A PCR NEGATIVE (Negative); Influenza B PCR NEGATIVE (Negative); Resp Syncy Virus RNA Qual PCR NEGATIVE (Negative); SARS COV2 PCR INHOUSE NEGATIVE (Negative)
[2021-10-11] MEDS: iohexoL 350 MG/ML 100 ML INFUS..BTL IV (12:14)
[2021-10-11 12:17] VITALS: BP 128/52; PULSE 108; RESP 16; O2SAT 96
[2021-10-11] MEDS: Lactated Ringers 1,000 ML 999 ML IV ×2 (12:17→14:01)
[2021-10-11] MEDS: diphenhydrAMINE HCL 50 MG/ML VIAL 25 MG IVPUSH (13:57)
[2021-10-11] MEDS: Metoclopramide HCl 10 MG/2 ML VIAL IVPUSH (14:01)
[2021-10-11 15:59] VITALS: BP 141/70; PULSE 101; RESP 18; TEMP 37.1; O2SAT 96
== END 2021-10-11 16:16 | disposition home or self-care (01) ==
PROVIDERS: Physician Assistant; Emergency Provider Emergency Medicine
DX: K52.9 Noninfective gastroenteritis and colitis, unspecified (principal); I10 Essential (primary) hypertension; J45.909 Unspecified asthma, uncomplicated; Z20.822 Contact with and (suspected) exposure to COVID-19; Z90.49 Acquired absence of other specified parts of digestive tract
CPT/HCPCS: 0241U; 36415; 74177; 80048; 80076; 83735; 85025; 96361; 96374; 96375; 99284; 99285; J1200; J2405; J2765; Q9967

== ENCOUNTER 2021-11-08 01:33 | Emergency (ER) | payer MEDICAID, SELFPAY ==
--- NOTE | ~2021-11-08 | CT_ITS ---
EXAMINATION: CT ABDOMEN AND PELVIS WITHOUT CONTRAST CLINICAL INFORMATION: Right flank pain. Rule out kidney stone. COMPARISON: 10.11.2021 TECHNIQUE: Multidetector volumetric imaging was performed from the superior aspect of the liver through the pubic symphysis. Sagittal and coronal reformatted images were obtained on the technologist's workstation. This CT examination was performed using dose optimization techniques as appropriate, variously including the following: *Automated exposure control *Adjustment of mA and/or kV according to patient size (this includes techniques or standardized protocols for targeted exams where dose is matched to indication/reason for exam; i.e. extremities or head) *Use of iterative reconstruction technique DLP: 920 mGy-cm FINDINGS: LUNG BASES: The visualized lung bases are unremarkable. LIVER, GALLBLADDER, AND BILIARY TREE: Mild hepatomegaly. Severe hepatic steatosis. No intra or extrahepatic biliary dilatation. No focal liver lesions. Cholecystectomy. PANCREAS: Unremarkable. SPLEEN: Unremarkable. ADRENAL GLANDS: Unremarkable. KIDNEYS AND URETERS: The kidneys are normal in size, shape, and attenuation. No hydronephrosis, hydroureter, or calculi seen. No perinephric stranding. BLADDER: Unremarkable. GASTROINTESTINAL TRACT: No intestinal obstruction or inflammation. Stomach and small bowel unremarkable. Submucosal fat deposition redemonstrated within the ascending colon, nonspecific. Normal appendix. ABDOMINAL WALL: No significant hernia is appreciated. LYMPH NODES: Normal. VASCULAR: Unremarkable. PELVIC VISCERA: Uterus and ovaries unremarkable. OSSEOUS STRUCTURES: No acute or suspicious osseous abnormalities. Endplate osteophytes present throughout the thoracic and lumbar spine with moderate loss of disc space height at L2-S1. CT/CT abdomen pelvis wo con IMPRESSION: * No acute findings within the abdomen or pelvis. * No urinary calculi or hydronephrosis. * Severe diffuse hepatic steatosis. * Cholecystectomy. Fleischner guidelines were followed.
[2021-11-08 02:02] VITALS: BP 149/100; PULSE 104; RESP 20; TEMP 35.6; O2SAT 94; BMI 37.8
[2021-11-08 02:16] LABS: MANUAL DIFF FLAG NO
[2021-11-08 02:18] LABS: Basophils Percent Auto 0.5 % (0-2); Eosinophils Absolute Auto 0.3 X10*3/uL (0.0-0.4); Eosinophils Percent Auto 4.2 % (0-4); Hematocrit 41.8 % (37.0-47.0); Hemoglobin 14.1 g/dl (12.0-16.0); Imm Gran Abs Auto 0.03 X10*3/uL (0.00-0.03); Imm Gran Pct Auto 0.5 % (0.0-0.4); Lymphocytes Absolute Auto 1.3 X10*3/uL (1.2-4.9); Lymphocytes Percent Auto 22.1 % (20-40); Mean Corpuscular HGB Conc 33.7 g/dl (31.0-35.0); Mean Corpuscular Hemoglobin 31.1 pg (27.0-33.0); Mean Corpuscular Volume 92.3 fL (80.0-98.0); Mean Platelet Volume 10.7 fL (9.4-12.3); Monocytes Absolute Auto 0.7 X10*3/uL (0.1-1.2); Monocytes Percent Auto 11.2 % (2-11); NRBC Pct Auto 0.3 /100WBC (0.0-0.2); Neutrophils Absolute Auto 3.6 x10*3/uL (2.0-8.3); Neutrophils Percent Auto 61.5 % (45-73); Platelet Count 172 X10*3/uL (160-400); Red Blood Count 4.53 X10*6/uL (4.20-5.50); Red Cell Distribution Width 13.6 % (11.0-16.0); White Blood Count 5.9 X10*3/uL (4.8-10.8)
[2021-11-08 02:40] LABS: Alanine Aminotransferase 81 U/L (0-31); Albumin Level 3.8 g/dL (3.5-5.0); Alkaline Phosphatase 141 U/L (39-117); Anion Gap 19 (12-20); Aspartate Amino Transferase 156 U/L (5-31); Bilirubin Total 1.5 mg/dL (0.0-1.0); Blood Urea Nitrogen 8 mg/dL (9-16); Carbon Dioxide 24 mmol/L (22-29); Chloride 100 mmol/L (96-108); Creatinine Clr Calc Pharmacy 102.8; Estimated Glomerular Filt Rate > 60; Glucose Random 127 mg/dL (60-115); Lipase 72 U/L (8-78); Potassium 2.9 mmol/L (3.3-5.1); Sodium 140 mmol/L (135-145); Total Protein 6.9 g/dL (6.5-8.0)
[2021-11-08 04:36] VITALS: BP 143/55; PULSE 98; RESP 22; TEMP 37.1; O2SAT 96
--- NOTE | 2021-11-08 04:49 | PC.NURSE ---
Dr Guerrero aware of pt's bladder scan 74ml, inability to provide urine, c/o back pain and nausea. this rn requesting zofran, fluids, pain control.
[2021-11-08 05:00] LABS: COVID-19 Test Negative (Negative); IDNOW Serial# 55D5AD1C
[2021-11-08] MEDS: 0.9 % Sodium Chloride 1,000 ML 999 ML IV (05:01)
[2021-11-08] MEDS: ondansetron HCL 4 MG/2 ML VIAL IVPUSH ×2 (05:02→08:14)
[2021-11-08] MEDS: Morphine Sulfate 4 MG/ML CARTRIDGE IVPUSH (05:02)
[2021-11-08 06:13] VITALS: BP 146/71; PULSE 92; RESP 16; TEMP 36.8; O2SAT 100
--- NOTE | 2021-11-08 07:44 | ED.GENADULT ---
HPI - General Adult General Chief complaint: Back Pain/Injury Stated complaint: sharp R kidney pain, diarrhea, vomiting as of 11/07 Time Seen by Provider: 11/08/21 04:43 Source: patient Mode of arrival: ambulatory Limitations: no limitations History of Present Illness HPI narrative: Patient comes to the emergency room complaining of right flank pain. Patient has been evaluated multiple times for right flank pain. the pain started last night, complaining of nausea and vomiting. Patient denies diarrhea. Related Data Home Medications Medication Instructions Recorded Confirmed hydroxyzine pamoate 25 mg capsule 25 mg PO TID PRN 09/23/20 09/09/21 loratadine 10 mg tablet (Claritin) 10 mg PO DAILY 01/16/21 09/09/21 albuterol sulfate 90 mcg/actuation 2 puff INHALATION Q6H PRN 03/27/21 09/09/21 aerosol inhaler magnesium chloride 64 mg 64 mg PO BEDTIME 08/15/21 09/09/21 (magnesium chloride) tablet,delayed release montelukast 10 mg tablet 10 mg PO BEDTIME 08/15/21 09/09/21 tramadol 50 mg tablet 50 mg PO BID PRN 08/15/21 amlodipine 10 mg tablet 1 tab PO DAILY 09/09/21 09/09/21 doxepin 25 mg capsule 1 cap PO BEDTIME 09/09/21 09/09/21 hydrocodone 10 mg-acetaminophen 1.5 tab PO Q8H PRN 09/09/21 09/09/21 325 mg tablet ipratropium 20 mcg-albuterol 100 1 puff PO QID PRN 09/09/21 09/09/21 mcg/actuation mist for inhalation (Combivent Respimat) lactulose 10 gram/15 mL oral 15 ml PO DAILY 09/09/21 09/09/21 solution omeprazole 20 mg capsule,delayed 1 cap PO DAILY 09/09/21 09/09/21 release oxybutynin chloride 5 mg 1 tab PO DAILY 09/09/21 09/09/21 tablet,extended release 24 hr polyethylene glycol 3350 17 17 g PO DAILY 09/09/21 09/09/21 gram/dose oral powder propranolol 20 mg tablet 1 tab PO BID 09/09/21 09/09/21 tizanidine 2 mg tablet 1 mg PO BEDTIME PRN 09/09/21 09/09/21 topiramate 25 mg tablet 1 tab PO BEDTIME 09/09/21 09/09/21 Previous Rx's Medication Instructions Recorded fluticasone propionate 110 2 puff PO BID #12 g 07/21/21 mcg/actuation HFA aerosol inhaler (Flovent HFA) ondansetron HCl 4 mg tablet 4 mg PO Q8H PRN #10 tab 09/11/21 (Zofran) cyclobenzaprine 5 mg tablet 5 mg PO BID PRN #60 tab 10/07/21 metoclopramide HCl 10 mg tablet 10 mg PO Q6H PRN #10 tab 10/11/21 (Reglan) ondansetron 4 mg disintegrating 4 mg PO Q8H PRN #7 tab 10/11/21 tablet hyoscyamine sulfate 0.125 mg 0.125 mg PO QID PRN #7 tab 11/08/21 disintegrating tablet nitrofurantoin 100 mg PO Q12H 5 Days #10 cap 11/08/21 monohydrate/macrocrystals 100 mg capsule (Macrobid) ondansetron HCl 4 mg tablet 4 mg PO Q6H PRN #10 tab 11/08/21 Allergies Allergy/AdvReac Type Severity Reaction Status Date / Time aspirin [ASPIRIN] Allergy Unknown RASH Verified 11/08/21 02:11 Review of Systems Review of Systems: Constitutional : No Weight loss, No Fever, No Chills, No Night Sweats, No Fatigue, No Malaise ENT/Mouth : No Hearing loss, No Ear Pain, No Nasal Congestion, No Sinus Pain, No Hoarseness, No sore throat, No Rhinorrhea, No Swallowing Difficulty Eyes: No Eye Pain, No Swelling, No Redness, No Foreign Body, No Discharge, No Vision Changes Cardiovascular : No Chest Pain, No SOB, No Dyspnea on Exertion, No Orthopnea, No Edema, No Palpitations Respiratory : No Cough, No Sputum, No Wheezing, No Smoke Exposure, No Dyspnea Gastrointestinal : Complaining of nausea vomiting, No Diarrhea, No Constipation, No abdominal Pain, No Hematochezia, No Melena Genitourinary : no irregular bleeding, No Dysuria, No Urinary Frequency, No Hematuria, No Urinary Incontinence, No Urgency, complaining of right Flank Pain, No Urinary Flow Changes, No Hesitancy Musculoskeletal : No joint pain, No Myalgias, No Joint Swelling Skin : No Skin Lesions, No rash Neuro : No Weakness, No Numbness, No Paresthesias, No Loss of Consciousness, No Dizziness, No Headache Psych : No Anxiety/Panic, No Depression, No SI/HI/AH/VH, No Social Issues, Heme/Lymph: No Bruising, No Bleeding,No Lymphadenopathy Endocrine : No Polyuria, No Polydipsia, No Temperature Intolerance [facility] Past Medical History Medical History Asthma Cough Hypertension Kidney failure Morbid obesity Nocturnal hypoxemia due to primary pulmonary hypertension TEODORA (obstructive sleep apnea) Restrictive lung disease Surgical History History of cholecystectomy Family History Family History (Updated 09/10/21 @ 06:05 by Pallavi Díaz MD) Mother Skin cancer Social History Social History Household Members: Other Household Members Other:: roommate Housing: House Do you presently have visiting nurse or other home services: No Alcohol intake: current Alcohol intake frequency: 0-2 drinks per day Alcohol type: hard liquor Patient Tobacco Use Status: Never used Tobacco Advance Directives: No service: No Current occupational status: unemployed Physical Exam Vital Signs: Vital Signs: Last Vital Signs Temp 98.3 F 11/08/21 06:13 Pulse 92 11/08/21 06:13 Resp 16 11/08/21 06:13 BP 146/71 H 11/08/21 06:13 Pulse Ox 100 11/08/21 06:13 BMI result Body Mass Index 37.8 Const: Other: Appearance: Alert. Oriented X3. No acute distress. Eyes: Pupils equal, round and reactive to light. ENT: Pharynx normal. Neck: Normal inspection. Neck supple. No lymph nodes noted. No crepitus CVS: Normal heart rate and rhythm. Pulses normal. Normal S1 and S2 Respiratory: No respiratory distress. Breath sounds normal. No Wheezing. No rales Abdomen: Soft and nontender. No rigidity. No distention. Back: Right flank pain, mild CVA tenderness Skin: Skin warm and dry. Normal skin color. Normal skin turgor. Extremities: No lower extremity edema. No lower extremity edema. No Lacerations. No Rash Neuro: Oriented X 3. No motor deficit. No sensory deficit. Moving all extermities. No slurred speech. Course Course Course Narrative: Patient received fluids, morphine, Zofran and potassium. Overall patient is feeling better. CT scan negative for kidney stones. Patient has trace leukocyte esterase, patient will be sent home with medication Medical Decision Making Lab Data Result diagrams: 11/08/21 02:08 11/08/21 02:08 Labs: Lab Results 11/08/21 11/08/21 11/08/21 Range/Units 02:08 02:08 04:39 WBC 5.9 (4.8-10.8) X10*3/uL RBC 4.53 (4.20-5.50) X10*6/uL Hgb 14.1 (12.0-16.0) g/dl Hct 41.8 (37.0-47.0) % MCV 92.3 (80.0-98.0) fL MCH 31.1 (27.0-33.0) pg MCHC 33.7 (31.0-35.0) g/dl RDW 13.6 (11.0-16.0) % Plt Count 172 (160-400) X10*3/uL MPV 10.7 (9.4-12.3) fL Immature Gran % (Auto) 0.5 H (0.0-0.4) % Neut % (Auto) 61.5 (45-73) % Lymph % (Auto) 22.1 (20-40) % [place] % (Auto) 11.2 H (2-11) % Eos % (Auto) 4.2 H (0-4) % Baso % (Auto) 0.5 (0-2) % Lymph # (Auto) 1.3 (1.2-4.9) X10*3/uL [place] # (Auto) 0.7 (0.1-1.2) X10*3/uL Eos # (Auto) 0.3 (0.0-0.4) X10*3/uL Baso # (Auto) 0.0 (0.0-0.2) X10*3/uL Abs Immat Gran (auto) 0.03 (0.00-0.03) X10*3/uL Absolute Neuts (auto) 3.6 (2.0-8.3) x10*3/uL Absolute Nucleated RBC 0.020 H (0.0-0.012) X10*3/uL Nucleated RBC % (auto) 0.3 H (0.0-0.2) /100WBC Sodium 140 (135-145) mmol/L Potassium 2.9 L (3.3-5.1) mmol/L Chloride 100 (96-108) mmol/L Carbon Dioxide 24 (22-29) mmol/L Anion Gap 19 (12-20) BUN 8 L (9-16) mg/dL Creatinine 0.71 (0.5-1.4) mg/dL Estim Creat Clear Calc 102.8 Estimated GFR > 60 Random Glucose 127 H (60-115) mg/dL Calcium 9.0 D (8.4-10.2) mg/dL Total Bilirubin 1.5 H (0.0-1.0) mg/dL AST 156 H (5-31) U/L ALT 81 H (0-31) U/L Alkaline Phosphatase 141 H (39-117) U/L Total Protein 6.9 (6.5-8.0) g/dL Albumin 3.8 (3.5-5.0) g/dL Lipase 72 (8-78) U/L COVID-19 (POP) Negative (Negative) COVID-19 Clin Com See Note Imaging Data CT scan - abdomen: Radiologist's impression: FINDINGS: LUNG BASES: The visualized lung bases are unremarkable.? LIVER, GALLBLADDER, AND BILIARY TREE: Mild hepatomegaly. Severe hepatic steatosis. No intra or extrahepatic biliary dilatation. No focal liver lesions. Cholecystectomy.? PANCREAS: Unremarkable.? SPLEEN: Unremarkable.? ADRENAL GLANDS: Unremarkable.? KIDNEYS AND URETERS: The kidneys are normal in size, shape, and attenuation. No hydronephrosis, hydroureter, or calculi seen. No perinephric stranding. ? BLADDER: Unremarkable.? GASTROINTESTINAL TRACT: No intestinal obstruction or inflammation. Stomach and small bowel unremarkable. Submucosal fat deposition redemonstrated within the ascending colon, nonspecific. Normal appendix.? ABDOMINAL WALL: No significant hernia is appreciated.? LYMPH NODES: Normal. VASCULAR: Unremarkable. PELVIC VISCERA: Uterus and ovaries unremarkable.? OSSEOUS STRUCTURES: No acute or suspicious osseous abnormalities. Endplate osteophytes present throughout the thoracic and lumbar spine with moderate loss of disc space height at L2-S1. CT/CT abdomen pelvis wo con IMPRESSION: *? No acute findings within the abdomen or pelvis. *? No urinary calculi or hydronephrosis. *? Severe diffuse hepatic steatosis. *? Cholecystectomy.? ? Fleischner guidelines were followed. Discharge Plan Discharge Clinical Impression: Chronic flank pain, UTI (urinary tract infection) Patient Disposition: Home, Self-Care Instructions: Urinary Tract Infection in Women (ED), Flank Pain (ED) Additional Instructions: Please follow-up with your primary care physician tomorrow. If you have any worsening or new symptoms, please return to the emergency room or call 911 Prescriptions: New hyoscyamine sulfate 0.125 mg tablet,disintegrating 0.125 mg PO QID PRN (Reason: dyspepsia) Qty: 7 RF: 0 ondansetron HCl 4 mg tablet 4 mg PO Q6H PRN (Reason: nausea and vomiting) Qty: 10 RF: 0 nitrofurantoin monohyd/m-cryst [Macrobid] 100 mg capsule 100 mg PO Q12H 5 Days Qty: 10 RF: 0 No Action Flovent HFA 110 mcg/actuation HFA aerosol inhaler 2 puff PO BID Qty: 12 RF: 3 doxepin 25 mg capsule 1 cap PO BEDTIME RF: 0 hydrocodone-acetaminophen 10-325 mg tablet 1.5 tab PO Q8H PRN (Reason: Pain) RF: 0 oxybutynin chloride 5 mg tablet extended release 24hr 1 tab PO DAILY RF: 0 polyethylene glycol 3350 17 gram/dose powder 17 g PO DAILY RF: 0 lactulose 10 gram/15 mL solution 15 ml PO DAILY RF: 0 Combivent Respimat 20-100 mcg/actuation mist 1 puff PO QID PRN (Reason: Shortness Of Breath) RF: 0 topiramate 25 mg tablet 1 tab PO BEDTIME RF: 0 amlodipine 10 mg tablet 1 tab PO DAILY RF: 0 Hold Instructions: Resume on 09/15/21. Hold until 09/15/21 omeprazole 20 mg capsule,delayed release(DR/EC) 1 cap PO DAILY RF: 0 propranolol 20 mg tablet 1 tab PO BID RF: 0 tizanidine 2 mg tablet 1 mg PO BEDTIME PRN (Reason: muscle spasticity) RF: 0 ondansetron HCl [Zofran] 4 mg tablet 4 mg PO Q8H PRN (Reason: nausea and vomiting) Qty: 10 RF: 0 ondansetron 4 mg tablet,disintegrating 4 mg PO Q8H PRN (Reason: nausea and vomiting) Qty: 7 RF: 0 metoclopramide HCl [Reglan] 10 mg tablet 10 mg PO Q6H PRN (Reason: nausea and vomiting) Qty: 10 RF: 0 hydroxyzine pamoate 25 mg capsule 25 mg PO TID PRN (Reason: Anxiety) RF: 0 albuterol sulfate 90 mcg/actuation HFA aerosol inhaler 2 puff inhalation Q6H PRN (Reason: Shortness Of Breath) RF: 0 loratadine [Claritin] 10 mg tablet 10 mg PO DAILY RF: 0 cyclobenzaprine 5 mg tablet 5 mg PO BID PRN (Reason: muscle spasm) Qty: 60 RF: 0
[2021-11-08] MEDS: Potassium Chloride Packet 20 MEQ PACKET 40 MEQ PO (08:13)
[2021-11-08 08:26] VITALS: BP 150/79; RESP 20; O2SAT 97
== END 2021-11-08 08:35 | disposition home or self-care (01) ==
PROVIDERS: Emergency Provider Emergency Medicine; PCP Family Medicine
DX: N39.0 Urinary tract infection, site not specified (principal); R10.9 Unspecified abdominal pain; Z20.822 Contact with and (suspected) exposure to COVID-19; I10 Essential (primary) hypertension; F10.10 Alcohol abuse, uncomplicated
CPT/HCPCS: 36415; 74176; 80053; 83690; 85025; 87635; 96361; 96374; 96375; 96376; 99284; 99285; J2270; J2405

== ENCOUNTER → 2021-11-18 13:30 | Outpatient (BNVA) | payer MEDICAID, SELFPAY | PROVIDERS: PCP Family Medicine; Referring Provider Family Medicine; Visit Provider Physician Assistant | DX: R11.2 Nausea with vomiting, unspecified (principal); R19.7 Diarrhea, unspecified; E66.01 Morbid (severe) obesity due to excess calories; I27.0 Primary pulmonary hypertension; G47.36 Sleep related hypoventilation in conditions classified elsewhere; F10.10 Alcohol abuse, uncomplicated; Z68.37 Body mass index [BMI] 37.0-37.9, adult | CPT/HCPCS: 99202 ==

== ENCOUNTER 2021-12-24 19:58 | Inpatient (IN) | payer MEDICAID, SELFPAY ==
--- NOTE | ~2021-12-24 | CT_ITS ---
EXAMINATION: CT ABDOMEN AND PELVIS WITHOUT CONTRAST CLINICAL INFORMATION: Diffuse abdominal pain COMPARISON: Previous CT most recent October 2021 TECHNIQUE: Multidetector volumetric imaging was performed from the superior aspect of the liver through the pubic symphysis. Sagittal and coronal reformatted images were obtained on the technologist's workstation. This CT examination was performed using dose optimization techniques as appropriate, variously including the following: *Automated exposure control *Adjustment of mA and/or kV according to patient size (this includes techniques or standardized protocols for targeted exams where dose is matched to indication/reason for exam; i.e. extremities or head) *Use of iterative reconstruction technique DLP: 1106 mGy-cm FINDINGS: LUNG BASES: The visualized lung bases are unremarkable. LIVER, GALLBLADDER, AND BILIARY TREE: The liver is enlarged and low in attenuation suggestive of fatty infiltration. No focal liver lesion is seen. The gallbladder is been removed. There is no biliary duct dilatation.. PANCREAS: Evaluation of the pancreas is somewhat limited due to motion artifact. There is some stranding of the fat seen surrounding the pancreas and in the small bowel mesentery.. Findings are questionable for mild pancreatitis. Pancreas is otherwise normal-appearing. SPLEEN: Unremarkable. ADRENAL GLANDS: Unremarkable. KIDNEYS AND URETERS: The kidneys are normal in size, shape, and attenuation. No hydronephrosis, hydroureter, or calculi seen. No perinephric stranding. BLADDER: Not optimally distended. GASTROINTESTINAL TRACT: There is a fatty infiltration of the wall of the ascending colon. This is a nonspecific finding. This is similar to previous exam. No evidence of acute colitis is seen. Small and large bowel is otherwise unremarkable. The appendix is unremarkable. ABDOMINAL WALL: No significant hernia is appreciated. LYMPH NODES: Normal. VASCULAR: There is question of a small splenic artery aneurysm measuring 9 x 13 mm axial image 19 series 3. This is similar in size to previous exams. PELVIC VISCERA: Unremarkable. OSSEOUS STRUCTURES: There are degenerative changes of the spine. CT/CT abdomen pelvis wo con IMPRESSION: Question mild fat stranding surrounding the pancreas and in the small bowel mesentery suggestive of mild pancreatitis versus changes due to motion artifact. Enlarged fatty liver. Small 9 x 12 mm splenic artery aneurysm. Fleischner guidelines were followed.
[2021-12-24 20:02] VITALS: BP 157/76; PULSE 118; RESP 18; TEMP 36.6; O2SAT 98; BMI 39.0
[2021-12-24 20:31] LABS: MANUAL DIFF FLAG NO
[2021-12-24 20:35] LABS: Basophils Absolute Auto 0.1 X10*3/uL (0.0-0.2); Basophils Percent Auto 0.5 % (0-2); Eosinophils Absolute Auto 0.1 X10*3/uL (0.0-0.4); Eosinophils Percent Auto 0.5 % (0-4); Hematocrit 45.4 % (37.0-47.0); Hemoglobin 15.7 g/dl (12.0-16.0); Imm Gran Abs Auto 0.05 X10*3/uL (0.00-0.03); Imm Gran Pct Auto 0.3 % (0.0-0.4); Lymphocytes Absolute Auto 1.2 X10*3/uL (1.2-4.9); Lymphocytes Percent Auto 8.3 % (20-40); Mean Corpuscular HGB Conc 34.6 g/dl (31.0-35.0); Mean Corpuscular Hemoglobin 31.3 pg (27.0-33.0); Mean Corpuscular Volume 90.6 fL (80.0-98.0); Mean Platelet Volume 11.7 fL (9.4-12.3); Monocytes Percent Auto 6.8 % (2-11); Neutrophils Absolute Auto 12.4 x10*3/uL (2.0-8.3); Neutrophils Percent Auto 83.6 % (45-73); Platelet Count 335 X10*3/uL (160-400); Red Blood Count 5.01 X10*6/uL (4.20-5.50); Red Cell Distribution Width 13.3 % (11.0-16.0); White Blood Count 14.9 X10*3/uL (4.8-10.8)
[2021-12-24 20:44] LABS: Ethanol 334 mg/dL
--- NOTE | 2021-12-24 20:45 | ED.GENADULT ---
HPI - General Adult General Chief complaint: Abdominal Pain Stated complaint: ETOH Time Seen by Provider: 12/24/21 20:42 Source: patient and EMS Mode of arrival: EMS Limitations: no limitations History of Present Illness HPI narrative: 56 years old female came in by ambulance for evaluation of abdominal pain and vomiting after drinking alcohol. Patient with history of alcohol abuse, patient was sober for 8 months relapsed today by drinking a whole bottle of vodka, patient is some what vague historian, complaining of chronic back pain and abdominal pain with nausea and vomiting, claimed bloody vomitus before arrival, patient cannot localize the pain in the abdomen, pain is dull aching is constant. Related Data Home Medications Medication Instructions Recorded Confirmed hydroxyzine pamoate 25 mg capsule 25 mg PO TID PRN 09/23/20 11/18/21 loratadine 10 mg tablet (Claritin) 10 mg PO DAILY 01/16/21 11/18/21 albuterol sulfate 90 mcg/actuation 2 puff INHALATION Q6H PRN 03/27/21 11/18/21 aerosol inhaler magnesium chloride 64 mg 64 mg PO BEDTIME 08/15/21 11/18/21 (magnesium chloride) tablet,delayed release montelukast 10 mg tablet 10 mg PO BEDTIME 08/15/21 11/18/21 tramadol 50 mg tablet 50 mg PO BID PRN 08/15/21 11/18/21 amlodipine 10 mg tablet 1 tab PO DAILY 09/09/21 11/18/21 doxepin 25 mg capsule 1 cap PO BEDTIME 09/09/21 11/18/21 hydrocodone 10 mg-acetaminophen 1.5 tab PO Q8H PRN 09/09/21 11/18/21 325 mg tablet ipratropium 20 mcg-albuterol 100 1 puff PO QID PRN 09/09/21 11/18/21 mcg/actuation mist for inhalation (Combivent Respimat) lactulose 10 gram/15 mL oral 15 ml PO DAILY 09/09/21 11/18/21 solution omeprazole 20 mg capsule,delayed 1 cap PO DAILY 09/09/21 11/18/21 release oxybutynin chloride 5 mg 1 tab PO DAILY 09/09/21 11/18/21 tablet,extended release 24 hr polyethylene glycol 3350 17 17 g PO DAILY 09/09/21 11/18/21 gram/dose oral powder propranolol 20 mg tablet 1 tab PO BID 09/09/21 11/18/21 tizanidine 2 mg tablet 1 mg PO BEDTIME PRN 09/09/21 11/18/21 topiramate 25 mg tablet 1 tab PO BEDTIME 09/09/21 11/18/21 Previous Rx's Medication Instructions Recorded fluticasone propionate 110 2 puff PO BID #12 g 07/21/21 mcg/actuation HFA aerosol inhaler (Flovent HFA) ondansetron HCl 4 mg tablet 4 mg PO Q8H PRN #10 tab 09/11/21 (Zofran) cyclobenzaprine 5 mg tablet 5 mg PO BID PRN #60 tab 10/07/21 metoclopramide HCl 10 mg tablet 10 mg PO Q6H PRN #10 tab 10/11/21 (Reglan) ondansetron 4 mg disintegrating 4 mg PO Q8H PRN #7 tab 10/11/21 tablet hyoscyamine sulfate 0.125 mg 0.125 mg PO QID PRN #7 tab 11/08/21 disintegrating tablet nitrofurantoin 100 mg PO Q12H 5 Days #10 cap 11/08/21 monohydrate/macrocrystals 100 mg capsule (Macrobid) ondansetron HCl 4 mg tablet 4 mg PO Q6H PRN #10 tab 11/08/21 Allergies Allergy/AdvReac Type Severity Reaction Status Date / Time aspirin [ASPIRIN] Allergy Unknown RASH Verified 11/18/21 13:33 Review of Systems Review of Systems: All other systems are reviewed and are negative Constitutional: Reports as per HPI and Reports no additional constitutional complaints Eyes: Reports as per HPI and Reports no additional eye complaints Reports system reviewed and no additional complaints, except as documented Cardiovascular: Reports as per HPI and Reports no additional cardiovascular complaints Respiratory: Reports as per HPI and Reports no additional respiratory complaints Gastrointestinal: Reports as per HPI and Reports no additional gastrointestinal complaints Genitourinary: Reports no additional female genitourinary complaints Musculoskeletal: Reports no additional musculoskeletal complaints Skin/Breast: Reports system reviewed and no additional complaints, except as docu Psychiatric: Reports no additional psychiatric complaints Endocrine: Reports no additional endocrine complaints Hematologic/Lymphatic: Reports no additional hematologic/lymphatic complaints Allergic/Immunologic: Reports no additional allergic/immunologic complaints Reports system reviewed and no additional complaints, except as documented and Reports Abnormal speech present [facility] Past Medical History Medical History Alcohol abuse Asthma Cough Hypertension Kidney failure Morbid obesity Nausea vomiting and diarrhea Nocturnal hypoxemia due to primary pulmonary hypertension TEODORA (obstructive sleep apnea) Restrictive lung disease Surgical History History of cholecystectomy Family History Family History Mother Skin cancer Social History Social History Household Members: Other Household Members Other:: roommate Housing: House Do you presently have visiting nurse or other home services: No Alcohol intake: current Alcohol intake frequency: 0-2 drinks per day Alcohol type: hard liquor Patient Tobacco Use Status: Never used Tobacco Advance Directives: No Advance Directives Information Provided: No Patient : No service: No Current occupational status: employed Current occupation: [employer] Physical Exam ED Vital Signs: Vital Signs - 24 hr 12/24/21 20:02 12/24/21 23:06 12/24/21 23:21 Temperature 98 F Pulse Rate 118 H Respiratory Rate 18 16 18 Blood Pressure 157/76 H Pulse Oximetry 98 BMI result Body Mass Index 39.0 Vital signs have been reviewed as appeared to be correct. Blood pressure elevated. Heart rate elevated. Respiration rate normal. Temperature normal. Oxygen saturation normal. Appearance: Intoxicated,Oriented X3. No acute distress. Head: Normal external exam. Normocephalic. Atraumatic. No Hernánedz signs noted. No raccoon eyes noted Eyes: PERRLA. EOMI. Conjunctiva and sclera normal. Eyelids normal. ENT: TM's Normal. Pharynx normal. Uvula midline. Moist mucous membranes. No trismus noted. No drooling noted. No muffled voice noted. Neck: Normal inspection. Neck supple. FROM. No adenopathy. Thyroid Normal. No meningeal signs. No neck mass noted. CVS: Normal heart rate and rhythm. Heart sound normal. No murmurs noted. Pulses normal throughout. Respiratory: No respiratory distress. Painless inspiration. Breath sounds normal. No wheezes/rales/rhonchi noted. Chest nontender. No accessory muscle usage noted or decreased air movement noted. Abdomen: Epigastric tenderness without guarding or rebound tenderness, Bowel sounds normal in all 4 quadrants. No distention noted. No organomegaly noted. No visible injury noted. Back: No CVA tenderness. Full range of motion noted. Skin: Skin warm and dry. Normal skin color. Normal skin turgor. No rashes/lesions/lacerations noted. Extremities: No lower extremity edema. Extremities exhibit normal range of motion. Extremities nontender. Neuro: Oriented X 3. Cranial nerve exam: II-XII are grossly intact No motor deficit. No sensory deficit. Reflexes normal. Course Course Course Narrative: Assessment and plan. 56-year-old female with abdominal pain and vomiting after drinking alcohol all day today, patient required multiple doses of pain medication/Ativan/antiemetic medication, patient is still vomiting. CT of the abdomen pelvis is unremarkable for acute pathology except a mild pancreatitis. Labs are significant for elevated lipase. Medical Decision Making Medical Records Medical records reviewed: Yes I reviewed the patient's medical records. Lab Data Lab results reviewed: Yes I reviewed the patient's lab results. Result diagrams: 12/24/21 20:25 12/24/21 20:25 Labs: Lab Results 12/24/21 12/24/21 12/24/21 Range/Units 20:25 20:25 20:25 WBC 14.9 H (4.8-10.8) X10*3/uL RBC 5.01 (4.20-5.50) X10*6/uL Hgb 15.7 (12.0-16.0) g/dl Hct 45.4 (37.0-47.0) % MCV 90.6 (80.0-98.0) fL MCH 31.3 (27.0-33.0) pg MCHC 34.6 (31.0-35.0) g/dl RDW 13.3 (11.0-16.0) % Plt Count 335 D (160-400) X10*3/uL MPV 11.7 (9.4-12.3) fL Immature Gran % (Auto) 0.3 (0.0-0.4) % Neut % (Auto) 83.6 H (45-73) % Lymph % (Auto) 8.3 L (20-40) % [place] % (Auto) 6.8 (2-11) % Eos % (Auto) 0.5 (0-4) % Baso % (Auto) 0.5 (0-2) % Lymph # (Auto) 1.2 (1.2-4.9) X10*3/uL [place] # (Auto) 1.0 (0.1-1.2) X10*3/uL Eos # (Auto) 0.1 (0.0-0.4) X10*3/uL Baso # (Auto) 0.1 (0.0-0.2) X10*3/uL Abs Immat Gran (auto) 0.05 H (0.00-0.03) X10*3/uL Absolute Neuts (auto) 12.4 H (2.0-8.3) x10*3/uL Absolute Nucleated RBC 0.000 (0.0-0.012) X10*3/uL Nucleated RBC % (auto) 0.0 (0.0-0.2) /100WBC Sodium 140 (135-145) mmol/L Potassium 3.4 (3.3-5.1) mmol/L Chloride 84 L (96-108) mmol/L Carbon Dioxide 28 (22-29) mmol/L Anion Gap 31 H (12-20) BUN 22 H D (9-16) mg/dL Creatinine 1.10 (0.5-1.4) mg/dL Estim Creat Clear Calc 65.1 Estimated GFR 52 Random Glucose 122 H (60-115) mg/dL Calcium 9.5 (8.4-10.2) mg/dL Total Bilirubin 1.8 H (0.0-1.0) mg/dL AST 231 H (5-31) U/L ALT 75 H (0-31) U/L Alkaline Phosphatase 238 H D (39-117) U/L Total Protein 7.9 (6.5-8.0) g/dL Albumin 4.1 (3.5-5.0) g/dL Lipase 303 H (8-78) U/L Ethyl Alcohol 334 H* mg/dL Imaging Data CT scan - abdomen: Attestation: I personally reviewed and interpreted this imaging study as follows: Radiologist's impression: Question mild fat stranding surrounding the pancreas and in the small bowel mesentery suggestive of mild pancreatitis versus changes due to motion artifact. Enlarged fatty liver. Small 9 x 12 mm splenic artery aneurysm. ? Discharge Plan Discharge Clinical Impression: Acute alcoholic pancreatitis, Acute alcoholic gastritis, Intractable vomiting Patient Disposition: Admitted As Inpatient
[2021-12-24] MEDS: LORazepam 2 MG/ML VIAL 1 MG IVPUSH ×2 (20:52→21:58)
[2021-12-24] MEDS: ondansetron HCL 4 MG/2 ML VIAL IVPUSH ×2 (20:52→21:58)
[2021-12-24] MEDS: 0.9 % Sodium Chloride 1,000 ML 999 ML IV ×2 (20:53→23:06)
[2021-12-24] MEDS: Famotidine/PF 20 MG/2 ML VIAL IVPUSH ×2 (20:57→21:58)
[2021-12-24 21:00] LABS: Alanine Aminotransferase 75 U/L (0-31); Albumin Level 4.1 g/dL (3.5-5.0); Alkaline Phosphatase 238 U/L (39-117); Anion Gap 31 (12-20); Aspartate Amino Transferase 231 U/L (5-31); Bilirubin Total 1.8 mg/dL (0.0-1.0); Blood Urea Nitrogen 22 mg/dL (9-16); Calcium 9.5 mg/dL (8.4-10.2); Carbon Dioxide 28 mmol/L (22-29); Chloride 84 mmol/L (96-108); Creatinine Clr Calc Pharmacy 65.1; Estimated Glomerular Filt Rate 52; Glucose Random 122 mg/dL (60-115); Potassium 3.4 mmol/L (3.3-5.1); Sodium 140 mmol/L (135-145); Total Protein 7.9 g/dL (6.5-8.0)
--- NOTE | 2021-12-24 21:45 | PC.NURSE ---
pt is vomiting at this time. aware.
--- NOTE | 2021-12-24 22:11 | PC.NURSE ---
pt continue to vomit dk colored vomit. pt medicated as per emar. will continue to monitor pt.
[2021-12-24 22:30] LABS: Lipase 303 U/L (8-78)
[2021-12-24 23:06] VITALS: RESP 16
[2021-12-24] MEDS: Morphine Sulfate 2 MG/ML CARTRIDGE 1 MG IVPUSH ×2 (23:06→23:21)
[2021-12-24 23:21] VITALS: RESP 18
[2021-12-24] MEDS: Metoclopramide HCl 10 MG/2 ML VIAL IVPUSH (23:21)
[2021-12-24 23:22] VITALS: BP 108/45; PULSE 108; RESP 16; O2SAT 98
--- NOTE | 2021-12-24 23:35 | P.HPHOSP_ITS ---
History of Present Illness Date of Service: 12/24/21 Chief Complaint: nausea/vomiting/abd pain 56-year-old female with a past medical history of alcohol abuse, history of pancreatitis, anxiety, depression presented to the hospital with a chief complaint of nausea vomiting and abdominal discomfort over the past few days. Patient reports that she is having diffuse abdominal pain associated nausea and vomiting. Denies any blood in the vomitus. Patient is slightly drowsy secondary to Ativan she received in the ER; history is mildly limited. Patient denies any chest pain or palpitations. Mentions that she has been drinking all: Last drink was prior to coming to the hospital. Denies any fever chills cough. Denies any urinary symptoms. Review of all other systems is negative except mentioned above ER course: Per ER team patient not have nausea vomiting, abdominal tenderness; lipase was elevated consistent with acute pancreatitis. Also received Ativan for possible withdrawal. Admitted for further management [facility] Medical History Alcohol abuse Asthma Cough Hypertension Kidney failure Morbid obesity Nausea vomiting and diarrhea Nocturnal hypoxemia due to primary pulmonary hypertension TEODORA (obstructive sleep apnea) Restrictive lung disease Family History Mother Skin cancer Pertinent family history: as mentioned above Surgical History History of cholecystectomy Social History Household Members: Other Household Members Other:: roommate Housing: House Do you presently have visiting nurse or other home services: No Alcohol intake: current Alcohol intake frequency: 0-2 drinks per day Alcohol type: hard liquor Patient Tobacco Use Status: Never used Tobacco Advance Directives: No Advance Directives Information Provided: No Patient : No service: No Current occupational status: employed Current occupation: [employer] Allergies Allergy/AdvReac Type Severity Reaction Status Date / Time aspirin [ASPIRIN] Allergy Unknown RASH Verified 11/18/21 13:33 Active Medications: Current Medications Acetaminophen (Acetaminophen 325 Mg Tablet) 650 mg PO Q6H PRN PRN Reason: Pain, Mild (Pain Scale 1-3) Enoxaparin Sodium (Enoxaparin Sodium 40 Mg/0.4 Ml Syringe) 40 mg SUBCUT Q24H [facility] Famotidine (Famotidine/Pf 20 Mg/2 Ml Vial) 20 mg IVPUSH BID [facility] Folic Acid (Folic Acid 1 Mg Tablet) 1 mg PO DAILY [facility] Stop: 12/28/21 08:59 Hydromorphone HCl (Hydromorphone Hcl 1 Mg/Ml Syringe) 0.5 mg IVPUSH Q4H PRN; Protocol PRN Reason: Pain, Severe (Pain Scale 7-10) Dextrose/Sodium Chloride (D51/2ns) 1,000 mls @ 100 mls/hr IVCONT .Q10H [facility] Lorazepam (Lorazepam 1 Mg Tablet) 1 mg PO Q4H PRN PRN Reason: Breakthrough alcohol withdrawa Stop: 12/28/21 23:23 Melatonin (Melatonin 3 Mg Tablet) 6 mg PO BEDTIME PRN PRN Reason: Insomnia Multivitamins/Vitamin C (Multivitamin Tablet) 1 tab PO DAILY [facility] Stop: 12/28/21 08:59 Senna (Sennosides 8.6 Mg Tablet) 17.2 mg PO BEDTIME PRN PRN Reason: Constipation Sodium Chloride (0.9 % Sodium Chloride Flush 3 Ml Syringe) 3 ml IVFLUSH QSHIFT [facility] Thiamine HCl (Thiamine Hcl 100 Mg Tablet) 100 mg PO DAILY [facility] Stop: 12/28/21 08:59 Home Medications Medication Instructions Recorded Confirmed Last Taken Type hydroxyzine pamoate 25 mg capsule 25 mg PO TID PRN 09/23/20 11/18/21 11/05/20 History loratadine 10 mg tablet (Claritin) 10 mg PO DAILY 01/16/21 11/18/21 09/09/21 History albuterol sulfate 90 mcg/actuation 2 puff INHALATION Q6H PRN 03/27/21 11/18/21 Unknown History aerosol inhaler magnesium chloride 64 mg 64 mg PO BEDTIME 08/15/21 11/18/21 09/09/21 History (magnesium chloride) tablet,delayed release montelukast 10 mg tablet 10 mg PO BEDTIME 08/15/21 11/18/21 09/08/21 History tramadol 50 mg tablet 50 mg PO BID PRN 08/15/21 11/18/21 Unknown History amlodipine 10 mg tablet 1 tab PO DAILY 09/09/21 11/18/21 09/09/21 History doxepin 25 mg capsule 1 cap PO BEDTIME 09/09/21 11/18/21 09/08/21 History hydrocodone 10 mg-acetaminophen 1.5 tab PO Q8H PRN 09/09/21 11/18/21 Unknown History 325 mg tablet ipratropium 20 mcg-albuterol 100 1 puff PO QID PRN 09/09/21 11/18/21 Unknown History mcg/actuation mist for inhalation (Combivent Respimat) lactulose 10 gram/15 mL oral 15 ml PO DAILY 09/09/21 11/18/21 09/09/21 History solution omeprazole 20 mg capsule,delayed 1 cap PO DAILY 09/09/21 11/18/21 09/09/21 History release oxybutynin chloride 5 mg 1 tab PO DAILY 09/09/21 11/18/21 09/09/21 History tablet,extended release 24 hr polyethylene glycol 3350 17 17 g PO DAILY 09/09/21 11/18/21 09/09/21 History gram/dose oral powder propranolol 20 mg tablet 1 tab PO BID 09/09/21 11/18/21 09/09/21 History tizanidine 2 mg tablet 1 mg PO BEDTIME PRN 09/09/21 11/18/21 Unknown History topiramate 25 mg tablet 1 tab PO BEDTIME 09/09/21 11/18/21 Unknown History Physical Exam Vital Signs and Narrative: Vital Signs: Last Vital Signs Temp 98 F 12/24/21 20:02 Pulse 118 H 12/24/21 20:02 Resp 18 12/24/21 23:21 BP 157/76 H 12/24/21 20:02 Pulse Ox 98 12/24/21 20:02 BMI result Body Mass Index 39.0 Gen: Appears be in no acute distress HEENT: NCAT, dry mucosa. Pulmonary: Vesicular breath sounds, fair air entry CVS: Normal S1-S2 Abdomen: BS+, Soft, Mildly tender diffusely, more so in the epigastrium, no guarding no rigidity Extremities: Warm well perfused Neuro: Alert and awake. Results Labs CBC and Chem 7: 12/24/21 20:25 12/24/21 20:25 Labs: Laboratory Results - last 24 hr 12/24/21 12/24/21 12/24/21 20:25 20:25 20:25 MCV 90.6 MCH 31.3 MCHC 34.6 RDW 13.3 Plt Count 335 D MPV 11.7 Immature Gran % (Auto) 0.3 Neut % (Auto) 83.6 H Lymph % (Auto) 8.3 L [place] % (Auto) 6.8 Eos % (Auto) 0.5 Baso % (Auto) 0.5 Lymph # (Auto) 1.2 [place] # (Auto) 1.0 Eos # (Auto) 0.1 Baso # (Auto) 0.1 Abs Immat Gran (auto) 0.05 H Absolute Neuts (auto) 12.4 H Absolute Nucleated RBC 0.000 Nucleated RBC % (auto) 0.0 Anion Gap 31 H Estim Creat Clear Calc 65.1 Estimated GFR 52 Random Glucose 122 H Calcium 9.5 Total Bilirubin 1.8 H AST 231 H ALT 75 H Alkaline Phosphatase 238 H D Total Protein 7.9 Albumin 4.1 Lipase 303 H Ethyl Alcohol 334 H* Imaging Radiologist's Impressions: Impressions Abdomen/Pelvis CT 12/24/21 21:25 IMPRESSION: Question mild fat stranding surrounding the pancreas and in the small bowel mesentery suggestive of mild pancreatitis versus changes due to motion artifact. Enlarged fatty liver. Small 9 x 12 mm splenic artery aneurysm. Fleischner guidelines were followed. Assessment and Plan (1) Pancreatitis: Status: Acute (2) Alcohol abuse: Status: Acute Plan 56-year-old female with a past medical history of alcohol abuse, restrictive lung disease, nocturnal hypoxemia, history of pancreatitis, anxiety, depression presented to the hospital with a chief complaint of nausea vomiting and abd ominal discomfort. Noted to have acute pancreatitis. Admitted for further management. Acute pancreatitis: In the setting of alcohol use. Pain control. Supportive care. IV fluids. Alcoholic gastritis: IV Pepcid b.i.d Alcohol abuse: Monitor on CIWA protocol with Ativan. Thiamine folate and multivitamins. DVT prophylaxis: Lovenox Code status: Full code Quality Stroke Does the patient have a stroke diagnosis?: No VTE Prior VTE?: No VTE Risk Level:: Medical - moderate - high VTE Device Contraindication: Treatment Not Indicated VTE Drug Contraindication: N/A - Med Ordered
[2021-12-25] VITALS (11 sets, daily range): BP systolic 110–146; BP diastolic 67–95; PULSE 63–112; RESP 16–31; TEMP 36–37.5; O2SAT 90–99; BMI 39.2
[2021-12-25] MEDS: LORazepam 1 MG TABLET PO ×2 (00:03→03:44)
[2021-12-25] MEDS: Dextrose 5 % and 0.45 % NaCl 1,000 ML 100 ML IVCONT (00:16)
[2021-12-25] MEDS: Melatonin 3 MG TABLET 6 MG PO ×2 (02:02→21:10)
[2021-12-25] MEDS: HYDROmorphone HCl 1 MG/ML SYRINGE 0.5 MG IVPUSH ×5 (03:43→20:35)
--- NOTE | 2021-12-25 03:45 | PC.NURSE ---
pt moaning and crying in pain. pt medicated as per emar. will continue to monitor pt.
[2021-12-25 06:09] LABS: MANUAL DIFF FLAG NO
[2021-12-25 06:13] LABS: Basophils Absolute Auto 0.1 X10*3/uL (0.0-0.2); Basophils Percent Auto 0.5 % (0-2); Eosinophils Percent Auto 0.3 % (0-4); Hematocrit 39.6 % (37.0-47.0); Hemoglobin 13.5 g/dl (12.0-16.0); Imm Gran Abs Auto 0.06 X10*3/uL (0.00-0.03); Imm Gran Pct Auto 0.4 % (0.0-0.4); Lymphocytes Absolute Auto 0.9 X10*3/uL (1.2-4.9); Lymphocytes Percent Auto 5.8 % (20-40); Mean Corpuscular HGB Conc 34.1 g/dl (31.0-35.0); Mean Corpuscular Volume 90.8 fL (80.0-98.0); Mean Platelet Volume 11.9 fL (9.4-12.3); Monocytes Absolute Auto 1.4 X10*3/uL (0.1-1.2); Monocytes Percent Auto 9.5 % (2-11); Neutrophils Absolute Auto 12.3 x10*3/uL (2.0-8.3); Neutrophils Percent Auto 83.5 % (45-73); Platelet Count 223 X10*3/uL (160-400); Red Blood Count 4.36 X10*6/uL (4.20-5.50); Red Cell Distribution Width 13.2 % (11.0-16.0); White Blood Count 14.8 X10*3/uL (4.8-10.8)
--- NOTE | 2021-12-25 06:31 | PC.NURSE ---
pt sleeping in NAD. respirations easy, n/l. pt up to bedside commode w/o difficulty.
[2021-12-25 06:52] LABS: Anion Gap 23 (12-20); Blood Urea Nitrogen 23 mg/dL (9-16); Calcium 8.6 mg/dL (8.4-10.2); Carbon Dioxide 30 mmol/L (22-29); Chloride 89 mmol/L (96-108); Creatinine Clr Calc Pharmacy 89.6; Estimated Glomerular Filt Rate > 60; Glucose Random 111 mg/dL (60-115); Potassium 3.6 mmol/L (3.3-5.1); Sodium 138 mmol/L (135-145)
[2021-12-25] MEDS: Folic Acid 1 MG TABLET PO (07:16)
[2021-12-25] MEDS: Thiamine HCL 100 MG TABLET PO (07:16)
[2021-12-25] MEDS: Multivitamin TABLET 1 TAB PO (07:16)
[2021-12-25] MEDS: Famotidine/PF 20 MG/2 ML VIAL IVPUSH (07:16)
[2021-12-25] MEDS: PHENobarbitaL sodium 130 MG/ML VIAL 167.7 MG IM (08:15)
[2021-12-25] MEDS: Lactated Ringers 1,000 ML 125 ML IVCONT ×2 (08:16→16:08)
--- NOTE | 2021-12-25 08:34 | PHA.MEDREC ---
Pharmacy Consult ? Medication Reconciliation Pharmacy has reviewed the medication reconciliation completed by Selina. Multiple medications were missed from home medication list. Provider notifeid of the update. Patient use [facility] medication box Keira FlemingD
--- NOTE | 2021-12-25 08:40 | HO.PM.IMPN ---
Subjective Subjective Date of Service: 12/25/21 Interval History: cc: abd pain interval history: continues to have abd pain reason for continued hospitalization:unable to tolerate po, actively withdrawing Cardiovascular Cardiovascular: Reports no additional cardiovascular complaints Respiratory Respiratory: Reports no additional respiratory complaints Physical Exam Vital Signs: Vital Signs: Last Vital Signs Temp 99.5 F 12/25/21 07:32 Pulse 112 H 12/25/21 07:32 Resp 16 12/25/21 07:32 BP 134/70 12/25/21 07:32 Pulse Ox 95 12/25/21 07:32 BMI result Body Mass Index 39.0 General: AO X 3, shaky Resp: CTA bilateral, no accessory muscles used CVS: S1,S2,RRR GI: soft, tender, non distended Neuro: motor grossly intact, alert Psych: appropriate affect, appropriate insight Objective Data Active Medications Acetaminophen (Acetaminophen 325 Mg Tablet) 650 mg PO Q6H PRN PRN Reason: Pain, Mild (Pain Scale 1-3) Enoxaparin Sodium (Enoxaparin Sodium 40 Mg/0.4 Ml Syringe) 40 mg SUBCUT Q24H [facility] Last Admin: 12/25/21 00:01 Dose: Not Given Documented by: HOLLY Non-Admin Reason: Patient Refused Folic Acid (Folic Acid 1 Mg Tablet) 1 mg PO DAILY [facility] Stop: 12/28/21 08:59 Last Admin: 12/25/21 07:16 Dose: 1 mg Documented by: MICHELLE Hydromorphone HCl (Hydromorphone Hcl 1 Mg/Ml Syringe) 0.5 mg IVPUSH Q4H PRN; Protocol PRN Reason: Pain, Severe (Pain Scale 7-10) Last Admin: 12/25/21 08:15 Dose: 0.5 mg Documented by: MICHELLE Hydroxyzine HCl (Hydroxyzine Hcl 25 Mg Tablet) 25 mg PO TID PRN PRN Reason: Anxiety Lactated Ringer's (Lr) 1,000 mls @ 125 mls/hr IVCONT .Q8H [facility] Last Admin: 12/25/21 08:16 Dose: 125 mls/hr Documented by: MICHELLE Medication (No Benzodiazepines) 1 each MISCELLANE DAILY [facility] Melatonin (Melatonin 3 Mg Tablet) 6 mg PO BEDTIME PRN PRN Reason: Insomnia Last Admin: 12/25/21 02:02 Dose: 6 mg Documented by: HOLLY Montelukast Sodium (Montelukast Sodium 10 Mg Tablet) 10 mg PO BEDTIME [facility] Multivitamins/Vitamin C (Multivitamin Tablet) 1 tab PO DAILY [facility] Stop: 12/28/21 08:59 Last Admin: 12/25/21 07:16 Dose: 1 tab Documented by: MICHELLE Omeprazole (Omeprazole 20 Mg Capsule.Dr) 20 mg PO BID@0630,1630 [facility] Phenobarbital (Phenobarbital 15 Mg Tablet) 45 mg PO BID [facility]; Protocol Stop: 12/27/21 09:01 Phenobarbital (Phenobarbital 15 Mg Tablet) 15 mg PO BID [facility]; Protocol Stop: 12/29/21 09:01 Phenobarbital (Phenobarbital 15 Mg Tablet) 15 mg PO DAILY [facility]; Protocol Stop: 12/31/21 09:01 Phenobarbital Sodium (Phenobarbital Sodium 130 Mg/Ml Vial) 126.1 mg IM Q3H [facility]; Protocol Stop: 12/25/21 14:01 Propranolol HCl (Propranolol Hcl 20 Mg Tablet) 20 mg PO BID [facility]; Protocol Senna (Sennosides 8.6 Mg Tablet) 17.2 mg PO BEDTIME PRN PRN Reason: Constipation Sodium Chloride (0.9 % Sodium Chloride Flush 3 Ml Syringe) 3 ml IVFLUSH QSHIFT [facility] Last Admin: 12/25/21 08:05 Dose: Not Given Documented by: MICHELLE Non-Admin Reason: IV Running Thiamine HCl (Thiamine Hcl 100 Mg Tablet) 100 mg PO DAILY [facility] Stop: 12/28/21 08:59 Last Admin: 12/25/21 07:16 Dose: 100 mg Documented by: MICHELLE Topiramate (Topiramate 25 Mg Tablet) 25 mg PO BEDTIME [facility] Labs CBC & Chem 7: 12/25/21 05:55 12/25/21 05:55 Labs: Laboratory Results - last 24 hr 12/24/21 12/24/21 12/24/21 20:25 20:25 20:25 MCV 90.6 MCH 31.3 MCHC 34.6 RDW 13.3 Plt Count 335 D MPV 11.7 Immature Gran % (Auto) 0.3 Neut % (Auto) 83.6 H Lymph % (Auto) 8.3 L [place] % (Auto) 6.8 Eos % (Auto) 0.5 Baso % (Auto) 0.5 Lymph # (Auto) 1.2 [place] # (Auto) 1.0 Eos # (Auto) 0.1 Baso # (Auto) 0.1 Abs Immat Gran (auto) 0.05 H Absolute Neuts (auto) 12.4 H Absolute Nucleated RBC 0.000 Nucleated RBC % (auto) 0.0 Anion Gap 31 H Estim Creat Clear Calc 65.1 Estimated GFR 52 Random Glucose 122 H Calcium 9.5 Total Bilirubin 1.8 H AST 231 H ALT 75 H Alkaline Phosphatase 238 H D Total Protein 7.9 Albumin 4.1 Lipase 303 H Ethyl Alcohol 334 H* 12/25/21 12/25/21 05:55 05:55 MCV 90.8 MCH 31.0 MCHC 34.1 RDW 13.2 Plt Count 223 D MPV 11.9 Immature Gran % (Auto) 0.4 Neut % (Auto) 83.5 H Lymph % (Auto) 5.8 L [place] % (Auto) 9.5 Eos % (Auto) 0.3 Baso % (Auto) 0.5 Lymph # (Auto) 0.9 L [place] # (Auto) 1.4 H Eos # (Auto) 0.0 Baso # (Auto) 0.1 Abs Immat Gran (auto) 0.06 H Absolute Neuts (auto) 12.3 H Absolute Nucleated RBC 0.000 Nucleated RBC % (auto) 0.0 Anion Gap 23 H Estim Creat Clear Calc 89.6 Estimated GFR > 60 Random Glucose 111 Calcium 8.6 D Total Bilirubin AST ALT Alkaline Phosphatase Total Protein Albumin Lipase Ethyl Alcohol Assessment and Plan (1) Acute alcoholic pancreatitis: Status: Acute Plan 56F presented with abd pain acute alcoholic pancreatitis change fluids to LR, advance to clear liquid diet, continue hydromorphone IV prn, monitor LFTs alcohol dependence with withdrawal CIWA phenobarbital protocol vitamin supplements TEODORA/morbid obesity weight loss recommended HTN amlodipine and chlorthalidone on hold for now with low normal bp alcoholic steatohepatitis monitor lfts, check inr, etoh cessation dvt prophylaxis - lovenox full code Quality Stroke Does the patient have a stroke diagnosis?: No VTE Prior VTE?: No VTE Risk Level:: Medical - moderate - high VTE Device Contraindication: Treatment Not Indicated VTE Drug Contraindication: N/A - Med Ordered
[2021-12-25 09:26] LABS: COVID-19 Test Negative (Negative); IDNOW Serial# 16C4AD1C
[2021-12-25] MEDS: hydrOXYzine HCL 25 MG TABLET PO ×2 (11:24→21:10)
[2021-12-25] MEDS: Propranolol HCL 20 MG TABLET PO ×2 (11:24→21:09)
[2021-12-25] MEDS: PHENobarbitaL sodium 130 MG/ML VIAL 126.1 MG IM ×2 (11:24→14:08)
--- NOTE | 2021-12-25 11:28 | PC.NURSE ---
patient a&ox3, court recording monitor sinus tach low 100s, pt medicated per order, ivf running per order, will continue to monitor.
--- NOTE | 2021-12-25 13:06 | MHC.CM.PN ---
PT REPORTS SHE LIVES WITH HER AND IS INDEPENDENT WITH CARE PT DENIES USING DME OR HAVING SERVICES IN THE HOME PT REPORTS SHE IS VACCINATED AGAINST COVID-19 PT DOES NOT KNOW THE NAME OF HER PCP, BUT GOES TO [facility] PT REPORTS SHE HAS A HC AT HOME, COPY REQUESTED CURRENT DC PLAN IS HOME WITH NO SERVICES PT TO SELF ARRANGE TRANSPORT
[2021-12-25] MEDS: ondansetron HCL 4 MG/2 ML VIAL IVPUSH (13:20)
--- NOTE | 2021-12-25 13:33 | PC.NURSE ---
New IV 20G started L forearm, pt medicated per provider, requested anti-nausea medication.
--- NOTE | 2021-12-25 16:34 | PC.NURSE ---
pt slept for a couple of hrs after medication, but upon waking is nauseous/dry heaving, 9/10 pain, increased restlessness, light sensitivity, CIWA of 16. provider aware.
[2021-12-25] MEDS: PHENobarbitaL sodium 130 MG/ML VIAL 167 MG IM (17:13)
--- NOTE | 2021-12-25 17:17 | PC.NURSE ---
medicated per provider order
[2021-12-25] MEDS: Montelukast Sodium 10 MG TABLET PO (21:09)
[2021-12-25] MEDS: Topiramate 25 MG TABLET PO (21:10)
[2021-12-25] MEDS: PHENobarbitaL 15 MG TABLET 45 MG PO (21:11)
[2021-12-25] MEDS: 0.9 % Sodium Chloride Flush 3 ML SYRINGE IVFLUSH (21:12)
[2021-12-26] VITALS (7 sets, daily range): BP systolic 113–140; BP diastolic 60–79; PULSE 68–74; RESP 15–20; TEMP 36.2–36.9; O2SAT 90–98; BMI 39.2
[2021-12-26] MEDS: Enoxaparin Sodium 40 MG/0.4 ML SYRINGE SUBCUT (00:26)
[2021-12-26] MEDS: ondansetron HCL 4 MG/2 ML VIAL IVPUSH (01:30)
[2021-12-26] MEDS: HYDROmorphone HCl 1 MG/ML SYRINGE 0.5 MG IVPUSH ×5 (01:33→20:15)
[2021-12-26] MEDS: Lactated Ringers 1,000 ML 125 ML IVCONT ×2 (04:38→16:44)
[2021-12-26 06:49] LABS: Hematocrit 38.5 % (37.0-47.0); Hemoglobin 12.5 g/dl (12.0-16.0); Mean Corpuscular HGB Conc 32.5 g/dl (31.0-35.0); Mean Corpuscular Hemoglobin 30.8 pg (27.0-33.0); Mean Corpuscular Volume 94.8 fL (80.0-98.0); Mean Platelet Volume 12.4 fL (9.4-12.3); Platelet Count 150 X10*3/uL (160-400); Red Blood Count 4.06 X10*6/uL (4.20-5.50)
[2021-12-26 06:51] LABS: INTERNATIONAL NORM RATIO 1.2 (0.9-1.1)
[2021-12-26 07:21] LABS: Alanine Aminotransferase 45 U/L (0-31); Alkaline Phosphatase 150 U/L (39-117); Anion Gap 12 (12-20); Aspartate Amino Transferase 107 U/L (5-31); Bilirubin Direct 1.4 mg/dL (0.0-0.5); Bilirubin Total 2.4 mg/dL (0.0-1.0); Blood Urea Nitrogen 16 mg/dL (9-16); Calcium 8.6 mg/dL (8.4-10.2); Carbon Dioxide 38 mmol/L (22-29); Chloride 88 mmol/L (96-108); Creatinine Clr Calc Pharmacy 108.8; Estimated Glomerular Filt Rate > 60; Glucose Fasting 99 mg/dL (60-99); Magnesium 1.5 mg/dL (1.6-2.6); Sodium 135 mmol/L (135-145); Total Protein 5.6 g/dL (6.5-8.0)
[2021-12-26] MEDS: Multivitamin TABLET 1 TAB PO (08:28)
[2021-12-26] MEDS: Propranolol HCL 20 MG TABLET PO ×2 (08:28→20:10)
[2021-12-26] MEDS: Omeprazole 20 MG CAPSULE.DR PO ×2 (08:28→14:49)
[2021-12-26] MEDS: PHENobarbitaL 15 MG TABLET 45 MG PO ×2 (08:29→20:10)
[2021-12-26] MEDS: Thiamine HCL 100 MG TABLET PO (08:29)
[2021-12-26] MEDS: Folic Acid 1 MG TABLET PO (08:29)
[2021-12-26] MEDS: hydrOXYzine HCL 25 MG TABLET PO (08:39)
--- NOTE | 2021-12-26 10:15 | HO.PM.IMPN ---
Subjective Subjective Date of Service: 12/26/21 Interval History: cc: abd pain interval history: still with pain, unable to advance diet, less withdrawal Cardiovascular Cardiovascular: Reports no additional cardiovascular complaints Respiratory Respiratory: Reports no additional respiratory complaints Physical Exam Vital Signs: Vital Signs: Last Vital Signs Temp 97.8 F 12/26/21 07:52 Pulse 71 12/26/21 07:52 Resp 20 12/26/21 07:52 BP 131/60 12/26/21 07:52 Pulse Ox 95 12/26/21 07:52 BMI result Body Mass Index 39.2 General: AO X 3, more comfortable appearing than yesterday Resp: CTA bilateral, no accessory muscles used CVS: S1,S2,RRR GI: soft, diffusely tender, non distended Neuro: motor grossly intact, alert Psych: appropriate affect, appropriate insight Objective Data Active Medications Acetaminophen (Acetaminophen 325 Mg Tablet) 650 mg PO Q6H PRN PRN Reason: Pain, Mild (Pain Scale 1-3) Enoxaparin Sodium (Enoxaparin Sodium 40 Mg/0.4 Ml Syringe) 40 mg SUBCUT Q24H [facility] Last Admin: 12/26/21 00:26 Dose: 40 mg Documented by: ANA MARIA Folic Acid (Folic Acid 1 Mg Tablet) 1 mg PO DAILY [facility] Stop: 12/28/21 08:59 Last Admin: 12/26/21 08:29 Dose: 1 mg Documented by: KEV Hydromorphone HCl (Hydromorphone Hcl 1 Mg/Ml Syringe) 0.5 mg IVPUSH Q4H PRN; Protocol PRN Reason: Pain, Severe (Pain Scale 7-10) Last Admin: 12/26/21 06:32 Dose: 0.5 mg Documented by: ANA MARIA Hydroxyzine HCl (Hydroxyzine Hcl 25 Mg Tablet) 25 mg PO TID PRN PRN Reason: Anxiety Last Admin: 12/26/21 08:39 Dose: 25 mg Documented by: KEV Lactated Ringer's (Lr) 1,000 mls @ 125 mls/hr IVCONT .Q8H [facility] Last Admin: 12/26/21 08:28 Dose: Not Given Documented by: KEV Non-Admin Reason: IV Running Magnesium Oxide (Magnesium Oxide 400 Mg Tablet) 400 mg PO BIDPC [facility] Medication (No Benzodiazepines) 1 each MISCELLANE DAILY [facility] Melatonin (Melatonin 3 Mg Tablet) 6 mg PO BEDTIME PRN PRN Reason: Insomnia Last Admin: 12/25/21 21:10 Dose: 6 mg Documented by: ANA MARIA Montelukast Sodium (Montelukast Sodium 10 Mg Tablet) 10 mg PO BEDTIME [facility] Last Admin: 12/25/21 21:09 Dose: 10 mg Documented by: ANA MARIA Multivitamins/Vitamin C (Multivitamin Tablet) 1 tab PO DAILY [facility] Stop: 12/28/21 08:59 Last Admin: 12/26/21 08:28 Dose: 1 tab Documented by: KEV Omeprazole (Omeprazole 20 Mg Capsule.Dr) 20 mg PO BID@0630,1630 [facility] Last Admin: 12/26/21 08:28 Dose: 20 mg Documented by: KEV Ondansetron HCl (Ondansetron Hcl 4 Mg/2 Ml Vial) 4 mg IVPUSH Q6H PRN PRN Reason: nausea Last Admin: 12/26/21 01:30 Dose: 4 mg Documented by: ANA MARIA Phenobarbital (Phenobarbital 15 Mg Tablet) 45 mg PO BID [facility]; Protocol Stop: 12/27/21 09:01 Last Admin: 12/26/21 08:29 Dose: 45 mg Documented by: KEV Phenobarbital (Phenobarbital 15 Mg Tablet) 15 mg PO BID [facility]; Protocol Stop: 12/29/21 09:01 Phenobarbital (Phenobarbital 15 Mg Tablet) 15 mg PO DAILY [facility]; Protocol Stop: 12/31/21 09:01 Propranolol HCl (Propranolol Hcl 20 Mg Tablet) 20 mg PO BID [facility]; Protocol Last Admin: 12/26/21 08:28 Dose: 20 mg Documented by: KEV Senna (Sennosides 8.6 Mg Tablet) 17.2 mg PO BEDTIME PRN PRN Reason: Constipation Sodium Chloride (0.9 % Sodium Chloride Flush 3 Ml Syringe) 3 ml IVFLUSH QSHIFT [facility] Last Admin: 12/26/21 08:28 Dose: Not Given Documented by: KEV Non-Admin Reason: IV Running Thiamine HCl (Thiamine Hcl 100 Mg Tablet) 100 mg PO DAILY [facility] Stop: 12/28/21 08:59 Last Admin: 12/26/21 08:29 Dose: 100 mg Documented by: KEV Topiramate (Topiramate 25 Mg Tablet) 25 mg PO BEDTIME [facility] Last Admin: 12/25/21 21:10 Dose: 25 mg Documented by: ANA MARIA Labs CBC & Chem 7: 12/26/21 06:15 12/26/21 06:15 Labs: Laboratory Results - last 24 hr 12/26/21 12/26/21 12/26/21 06:15 06:15 06:15 MCV 94.8 MCH 30.8 MCHC 32.5 RDW 13.0 Plt Count 150 L D MPV 12.4 H Absolute Nucleated RBC 0.000 Nucleated RBC % (auto) 0.0 PT 14.0 H INR 1.2 H Anion Gap 12 Estim Creat Clear Calc 108.8 Estimated GFR > 60 Fasting Glucose 99 Calcium 8.6 Magnesium 1.5 L Total Bilirubin 2.4 H Direct Bilirubin 1.4 H AST 107 H ALT 45 H Alkaline Phosphatase 150 H D Total Protein 5.6 L D Albumin 3.0 L D Assessment and Plan (1) Acute alcoholic pancreatitis: Status: Acute Plan 56F presented with abd pain acute alcoholic pancreatitis continue LR, continue clear liquid diet, continue hydromorphone IV prn alcohol dependence with withdrawal was scoring high on CIWA yesterday, now better this AM continue phenobarbital protocol vitamin supplements hypomagnesemia, hyokalemia replace and monitor TEODORA/morbid obesity weight loss recommended non compliant with cpap HTN amlodipine and chlorthalidone on hold for now with low normal bp alcoholic steatohepatitis etoh cessation dvt prophylaxis - lovenox full code reason for continued hospitalization: abd pain requiring iv opiates, not tolerating po Quality Stroke Does the patient have a stroke diagnosis?: No VTE Prior VTE?: No VTE Risk Level:: Medical - moderate - high VTE Device Contraindication: Treatment Not Indicated VTE Drug Contraindication: N/A - Med Ordered
--- NOTE | 2021-12-26 11:42 | MHC.CLN ---
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
[2021-12-26] MEDS: Potassium Chloride ER 20 MEQ TAB.ER.PRT 40 MEQ PO (12:55)
[2021-12-26] MEDS: Magnesium Oxide 400 MG TABLET PO (16:45)
[2021-12-26] MEDS: Montelukast Sodium 10 MG TABLET PO (20:10)
[2021-12-26] MEDS: Topiramate 25 MG TABLET PO (20:10)
[2021-12-27] VITALS (8 sets, daily range): BP systolic 109–139; BP diastolic 56–75; PULSE 63–67; RESP 18–20; TEMP 36.1–37.1; O2SAT 92–97
[2021-12-27] MEDS: Lactated Ringers 1,000 ML 125 ML IVCONT ×2 (00:03→16:53)
[2021-12-27] MEDS: Enoxaparin Sodium 40 MG/0.4 ML SYRINGE SUBCUT ×2 (00:03→22:52)
[2021-12-27] MEDS: HYDROmorphone HCl 1 MG/ML SYRINGE 0.5 MG IVPUSH ×2 (02:52→08:56)
[2021-12-27] MEDS: ondansetron HCL 4 MG/2 ML VIAL IVPUSH (02:57)
[2021-12-27] MEDS: Omeprazole 20 MG CAPSULE.DR PO ×2 (05:56→16:53)
[2021-12-27 06:27] LABS: Hematocrit 39.9 % (37.0-47.0); Hemoglobin 12.6 g/dl (12.0-16.0); Mean Corpuscular HGB Conc 31.6 g/dl (31.0-35.0); Mean Corpuscular Hemoglobin 30.5 pg (27.0-33.0); Mean Corpuscular Volume 96.6 fL (80.0-98.0); Mean Platelet Volume 12.7 fL (9.4-12.3); NRBC Pct Auto 0.2 /100WBC (0.0-0.2); Platelet Count 142 X10*3/uL (160-400); Red Blood Count 4.13 X10*6/uL (4.20-5.50); Red Cell Distribution Width 12.7 % (11.0-16.0); White Blood Count 8.1 X10*3/uL (4.8-10.8)
[2021-12-27 06:45] LABS: Anion Gap 9 (12-20); Blood Urea Nitrogen 8 mg/dL (9-16); Calcium 8.4 mg/dL (8.4-10.2); Carbon Dioxide 36 mmol/L (22-29); Chloride 94 mmol/L (96-108); Creatinine Clr Calc Pharmacy 110.5; Estimated Glomerular Filt Rate > 60; Glucose Fasting 94 mg/dL (60-99); Potassium 3.4 mmol/L (3.3-5.1); Sodium 136 mmol/L (135-145)
[2021-12-27 06:49] LABS: Magnesium 1.3 mg/dL (1.6-2.6)
[2021-12-27] MEDS: Potassium Chloride ER 20 MEQ TAB.ER.PRT 40 MEQ PO (08:52)
[2021-12-27] MEDS: PHENobarbitaL 15 MG TABLET 45 MG PO (08:55)
[2021-12-27] MEDS: Multivitamin TABLET 1 TAB PO (08:56)
[2021-12-27] MEDS: Thiamine HCL 100 MG TABLET PO (08:56)
[2021-12-27] MEDS: Propranolol HCL 20 MG TABLET PO ×2 (08:56→20:27)
[2021-12-27] MEDS: Magnesium Oxide 400 MG TABLET PO ×3 (08:56→20:27)
[2021-12-27] MEDS: Folic Acid 1 MG TABLET PO (08:56)
--- NOTE | 2021-12-27 09:36 | HO.PM.IMPN ---
Subjective Subjective Date of Service: 12/27/21 Interval History: cc: abd pain interval history: improved Cardiovascular Cardiovascular: Reports no additional cardiovascular complaints Respiratory Respiratory: Reports no additional respiratory complaints Physical Exam Vital Signs: Vital Signs: Last Vital Signs Temp 97.1 F 12/27/21 07:20 Pulse 65 12/27/21 07:20 Resp 18 12/27/21 07:20 BP 112/75 12/27/21 07:20 Pulse Ox 97 12/27/21 07:20 BMI result Body Mass Index 39.2 General: AO X 3, no acute distress Resp: CTA bilateral, no accessory muscles used CVS: S1,S2,RRR GI: soft, non tender, non distended Neuro: motor grossly intact, alert Psych: appropriate affect, appropriate insight Objective Data Active Medications Acetaminophen (Acetaminophen 325 Mg Tablet) 650 mg PO Q6H PRN PRN Reason: Pain, Mild (Pain Scale 1-3) Enoxaparin Sodium (Enoxaparin Sodium 40 Mg/0.4 Ml Syringe) 40 mg SUBCUT Q24H [facility] Last Admin: 12/27/21 00:03 Dose: 40 mg Documented by: ROSMERY Folic Acid (Folic Acid 1 Mg Tablet) 1 mg PO DAILY [facility] Stop: 12/28/21 08:59 Last Admin: 12/27/21 08:56 Dose: 1 mg Documented by: YING Guaifenesin (Guaifenesin 100 Mg/5 Ml Liquid) 5 ml PO Q6H PRN PRN Reason: cough Hydromorphone HCl (Hydromorphone Hcl 1 Mg/Ml Syringe) 0.5 mg IVPUSH Q4H PRN; Protocol PRN Reason: Pain, Severe (Pain Scale 7-10) Last Admin: 12/27/21 08:56 Dose: 0.5 mg Documented by: YING Hydroxyzine HCl (Hydroxyzine Hcl 25 Mg Tablet) 25 mg PO TID PRN PRN Reason: Anxiety Last Admin: 12/26/21 08:39 Dose: 25 mg Documented by: KEV Lactated Ringer's (Lr) 1,000 mls @ 125 mls/hr IVCONT .Q8H [facility] Last Infusion: 12/27/21 08:48 Dose: 0 mls/hr Documented by: YING Magnesium Oxide (Magnesium Oxide 400 Mg Tablet) 400 mg PO TID [facility] Last Admin: 12/27/21 08:56 Dose: 400 mg Documented by: YING Medication (No Benzodiazepines) 1 each MISCELLANE DAILY [facility] Melatonin (Melatonin 3 Mg Tablet) 6 mg PO BEDTIME PRN PRN Reason: Insomnia Last Admin: 12/25/21 21:10 Dose: 6 mg Documented by: ANA MARIA Montelukast Sodium (Montelukast Sodium 10 Mg Tablet) 10 mg PO BEDTIME [facility] Last Admin: 12/26/21 20:10 Dose: 10 mg Documented by: ROSMERY Multivitamins/Vitamin C (Multivitamin Tablet) 1 tab PO DAILY [facility] Stop: 12/28/21 08:59 Last Admin: 12/27/21 08:56 Dose: 1 tab Documented by: YING Omeprazole (Omeprazole 20 Mg Capsule.Dr) 20 mg PO BID@0630,1630 [facility] Last Admin: 12/27/21 05:56 Dose: 20 mg Documented by: ROSMERY Ondansetron HCl (Ondansetron Hcl 4 Mg/2 Ml Vial) 4 mg IVPUSH Q6H PRN PRN Reason: nausea Last Admin: 12/27/21 02:57 Dose: 4 mg Documented by: ROSMERY Phenobarbital (Phenobarbital 15 Mg Tablet) 15 mg PO BID [facility]; Protocol Stop: 12/29/21 09:01 Phenobarbital (Phenobarbital 15 Mg Tablet) 15 mg PO DAILY [facility]; Protocol Stop: 12/31/21 09:01 Propranolol HCl (Propranolol Hcl 20 Mg Tablet) 20 mg PO BID [facility]; Protocol Last Admin: 12/27/21 08:56 Dose: 20 mg Documented by: YING Senna (Sennosides 8.6 Mg Tablet) 17.2 mg PO BEDTIME PRN PRN Reason: Constipation Sodium Chloride (0.9 % Sodium Chloride Flush 3 Ml Syringe) 3 ml IVFLUSH QSHIFT [facility] Last Admin: 12/27/21 08:48 Dose: Not Given Documented by: YING Non-Admin Reason: IV Running Thiamine HCl (Thiamine Hcl 100 Mg Tablet) 100 mg PO DAILY [facility] Stop: 12/28/21 08:59 Last Admin: 12/27/21 08:56 Dose: 100 mg Documented by: YING Topiramate (Topiramate 25 Mg Tablet) 25 mg PO BEDTIME [facility] Last Admin: 12/26/21 20:10 Dose: 25 mg Documented by: ROSMERY Labs CBC & Chem 7: 12/27/21 06:04 12/27/21 06:04 Labs: Laboratory Results - last 24 hr 12/27/21 12/27/21 06:04 06:04 MCV 96.6 MCH 30.5 MCHC 31.6 RDW 12.7 Plt Count 142 L MPV 12.7 H Absolute Nucleated RBC 0.020 H Nucleated RBC % (auto) 0.2 Anion Gap 9 L Estim Creat Clear Calc 110.5 Estimated GFR > 60 Fasting Glucose 94 Calcium 8.4 Magnesium 1.3 L* Assessment and Plan (1) Acute alcoholic pancreatitis: Status: Acute Plan 56F presented with abd pain acute alcoholic pancreatitis improved, will advance to solid low fat diet continue ivf fluids until eating adequately will discontinue IV pain meds and monitor if patient tolerates alcohol dependence with withdrawal much improved continue phenobarbital protocol vitamin supplements hypomagnesemia, hyokalemia mg now 1.3, potassium 3.4 replace and monitor po mag increased to tid TEODORA/morbid obesity weight loss recommended non compliant with cpap HTN amlodipine and chlorthalidone on hold for now with low normal bp alcoholic steatohepatitis etoh cessation dvt prophylaxis - lovenox full code reason for continued hospitalization: severe hypomagnesemia requiring replacement and close monitoring Quality Stroke Does the patient have a stroke diagnosis?: No VTE Prior VTE?: No VTE Risk Level:: Medical - moderate - high VTE Device Contraindication: Treatment Not Indicated VTE Drug Contraindication: N/A - Med Ordered
[2021-12-27] MEDS: HYDROmorphone HCl 0.5 MG/0.5 ML SYRINGE IVPUSH ×3 (14:05→22:52)
[2021-12-27] MEDS: guaiFENesin 100 MG/5 ML LIQUID PO ×2 (14:07→20:30)
[2021-12-27] MEDS: Montelukast Sodium 10 MG TABLET PO (20:26)
[2021-12-27] MEDS: PHENobarbitaL 15 MG TABLET PO (20:27)
[2021-12-27] MEDS: Topiramate 25 MG TABLET PO (20:27)
[2021-12-28] VITALS (9 sets, daily range): BP systolic 102–128; BP diastolic 53–60; PULSE 60–67; RESP 14–20; TEMP 36–36.8; O2SAT 96–99
[2021-12-28] MEDS: Lactated Ringers 1,000 ML 125 ML IVCONT ×3 (00:57→18:09)
[2021-12-28] MEDS: HYDROmorphone HCl 0.5 MG/0.5 ML SYRINGE IVPUSH ×5 (03:07→22:09)
[2021-12-28] MEDS: Omeprazole 20 MG CAPSULE.DR PO ×2 (05:33→16:14)
[2021-12-28] MEDS: Acetaminophen 325 MG TABLET 650 MG PO ×2 (06:33→18:00)
[2021-12-28] MEDS: ondansetron HCL 4 MG/2 ML VIAL IVPUSH ×2 (06:33→18:08)
[2021-12-28 06:51] LABS: Hematocrit 40.9 % (37.0-47.0); Mean Corpuscular HGB Conc 31.8 g/dl (31.0-35.0); Mean Corpuscular Hemoglobin 30.7 pg (27.0-33.0); Mean Corpuscular Volume 96.7 fL (80.0-98.0); Mean Platelet Volume 12.3 fL (9.4-12.3); Platelet Count 154 X10*3/uL (160-400); Red Blood Count 4.23 X10*6/uL (4.20-5.50); Red Cell Distribution Width 12.9 % (11.0-16.0); White Blood Count 7.4 X10*3/uL (4.8-10.8)
[2021-12-28 07:16] LABS: Anion Gap 11 (12-20); Blood Urea Nitrogen 6 mg/dL (9-16); Calcium 8.6 mg/dL (8.4-10.2); Carbon Dioxide 30 mmol/L (22-29); Chloride 99 mmol/L (96-108); Creatinine Clr Calc Pharmacy 112.2; Estimated Glomerular Filt Rate > 60; Glucose Fasting 83 mg/dL (60-99); Sodium 136 mmol/L (135-145)
[2021-12-28 07:23] LABS: Magnesium 1.3 mg/dL (1.6-2.6)
[2021-12-28] MEDS: PHENobarbitaL 15 MG TABLET PO ×2 (08:42→22:09)
[2021-12-28] MEDS: Propranolol HCL 20 MG TABLET PO ×2 (08:42→22:10)
[2021-12-28] MEDS: 0.9 % Sodium Chloride Flush 3 ML SYRINGE IVFLUSH ×3 (08:42→22:11)
[2021-12-28] MEDS: Magnesium Sulfate/H2O 2 GM/50 ML PIGGYBACK IV (08:42)
[2021-12-28] MEDS: Magnesium Oxide 400 MG TABLET PO ×3 (08:42→22:08)
--- NOTE | 2021-12-28 09:03 | HO.PM.IMPN ---
Subjective Subjective Date of Service: 12/28/21 Interval History: cc: abd pain interval history: withdrawal symtpoms much better, but failed when advancing diet to solids yesterday due to pain, intersted in attempting again today Cardiovascular Cardiovascular: Reports no additional cardiovascular complaints Respiratory Respiratory: Reports no additional respiratory complaints Physical Exam Vital Signs: Vital Signs: Last Vital Signs Temp 97.9 F 12/28/21 08:00 Pulse 66 12/28/21 08:00 Resp 18 12/28/21 08:00 BP 127/58 L 12/28/21 08:00 Pulse Ox 96 12/28/21 08:00 BMI result Body Mass Index 39.2 General: AO X 3, mild discomfort Resp: CTA bilateral, no accessory muscles used CVS: S1,S2,RRR GI: soft, mildly tender, non distended Neuro: motor grossly intact, alert Psych: appropriate affect, appropriate insight Objective Data Active Medications Acetaminophen (Acetaminophen 325 Mg Tablet) 650 mg PO Q6H PRN PRN Reason: Pain, Mild (Pain Scale 1-3) Last Admin: 12/28/21 06:33 Dose: 650 mg Documented by: ROSMERY Enoxaparin Sodium (Enoxaparin Sodium 40 Mg/0.4 Ml Syringe) 40 mg SUBCUT Q24H [facility] Last Admin: 12/27/21 22:52 Dose: 40 mg Documented by: ROSMERY Guaifenesin (Guaifenesin 100 Mg/5 Ml Liquid) 5 ml PO Q6H PRN PRN Reason: cough Last Admin: 12/27/21 20:30 Dose: 5 ml Documented by: ROSMERY Hydromorphone HCl (Hydromorphone Hcl 0.5 Mg/0.5 Ml Syringe) 0.5 mg IVPUSH Q4H PRN; Protocol PRN Reason: moderate pain Last Admin: 12/28/21 08:42 Dose: 0.5 mg Documented by: DOBROB Hydroxyzine HCl (Hydroxyzine Hcl 25 Mg Tablet) 25 mg PO TID PRN PRN Reason: Anxiety Last Admin: 12/26/21 08:39 Dose: 25 mg Documented by: KEV Lactated Ringer's (Lr) 1,000 mls @ 125 mls/hr IVCONT .Q8H [facility] Last Infusion: 12/28/21 08:49 Dose: 0 mls/hr Documented by: YING Magnesium Sulfate (Magnesium Sulfate/H2o) 2 gm in 50 mls @ 25 mls/hr IV ONCE ONE Stop: 12/28/21 09:34 Last Admin: 12/28/21 08:42 Dose: 25 mls/hr Documented by: YING Magnesium Oxide (Magnesium Oxide 400 Mg Tablet) 400 mg PO TID [facility] Last Admin: 12/28/21 08:42 Dose: 400 mg Documented by: YING Medication (No Benzodiazepines) 1 each MISCELLANE DAILY [facility] Melatonin (Melatonin 3 Mg Tablet) 6 mg PO BEDTIME PRN PRN Reason: Insomnia Last Admin: 12/25/21 21:10 Dose: 6 mg Documented by: ANA MARIA Montelukast Sodium (Montelukast Sodium 10 Mg Tablet) 10 mg PO BEDTIME [facility] Last Admin: 12/27/21 20:26 Dose: 10 mg Documented by: ROSMERY Omeprazole (Omeprazole 20 Mg Capsule.Dr) 20 mg PO BID@0630,1630 [facility] Last Admin: 12/28/21 05:33 Dose: 20 mg Documented by: ROSMERY Ondansetron HCl (Ondansetron Hcl 4 Mg/2 Ml Vial) 4 mg IVPUSH Q6H PRN PRN Reason: nausea Last Admin: 12/28/21 06:33 Dose: 4 mg Documented by: ROSMERY Phenobarbital (Phenobarbital 15 Mg Tablet) 15 mg PO BID [facility]; Protocol Stop: 12/29/21 09:01 Last Admin: 12/28/21 08:42 Dose: 15 mg Documented by: YING Phenobarbital (Phenobarbital 15 Mg Tablet) 15 mg PO DAILY [facility]; Protocol Stop: 12/31/21 09:01 Propranolol HCl (Propranolol Hcl 20 Mg Tablet) 20 mg PO BID [facility]; Protocol Last Admin: 12/28/21 08:42 Dose: 20 mg Documented by: YING Senna (Sennosides 8.6 Mg Tablet) 17.2 mg PO BEDTIME PRN PRN Reason: Constipation Sodium Chloride (0.9 % Sodium Chloride Flush 3 Ml Syringe) 3 ml IVFLUSH QSHIFT [facility] Last Admin: 12/28/21 08:42 Dose: 3 ml Documented by: YING Topiramate (Topiramate 25 Mg Tablet) 25 mg PO BEDTIME [facility] Last Admin: 12/27/21 20:27 Dose: 25 mg Documented by: ROSMERY Labs CBC & Chem 7: 12/28/21 06:35 12/28/21 06:35 Labs: Laboratory Results - last 24 hr 12/28/21 12/28/21 06:35 06:35 MCV 96.7 MCH 30.7 MCHC 31.8 RDW 12.9 Plt Count 154 L MPV 12.3 Absolute Nucleated RBC 0.000 Nucleated RBC % (auto) 0.0 Anion Gap 11 L Estim Creat Clear Calc 112.2 Estimated GFR > 60 Fasting Glucose 83 Calcium 8.6 Magnesium 1.3 L* Assessment and Plan (1) Acute alcoholic pancreatitis: Status: Acute Plan 56F presented with abd pain acute alcoholic pancreatitis had pain with solids yesterday, reverted to clears, now interested in trying solids again low fat diet, monitor for tolerance alcohol dependence with withdrawal much improved continue phenobarbital protocol vitamin supplements hypomagnesemia, hyokalemia mg still 1.3, potassium 4 continue po mag 400mg tid will give additional 2gm iv once TEODORA/morbid obesity weight loss recommended non compliant with cpap HTN amlodipine and chlorthalidone on hold for now with low normal bp alcoholic steatohepatitis etoh cessation dvt prophylaxis - lovenox full code reason for continued hospitalization: severe hypomagnesemia requiring replacement and close monitoring, has yet to tolerate solid diet Quality Stroke Does the patient have a stroke diagnosis?: No VTE Prior VTE?: No VTE Risk Level:: Medical - moderate - high VTE Device Contraindication: Treatment Not Indicated VTE Drug Contraindication: N/A - Med Ordered
[2021-12-28] MEDS: guaiFENesin 100 MG/5 ML LIQUID PO ×2 (11:47→18:08)
[2021-12-28] MEDS: Topiramate 25 MG TABLET PO (22:08)
[2021-12-28] MEDS: Montelukast Sodium 10 MG TABLET PO (22:08)
[2021-12-28] MEDS: Enoxaparin Sodium 40 MG/0.4 ML SYRINGE SUBCUT (22:09)
[2021-12-29] VITALS (9 sets, daily range): BP systolic 112–159; BP diastolic 53–89; PULSE 59–67; RESP 13–20; TEMP 35.7–36.9; O2SAT 97–99
[2021-12-29] MEDS: HYDROmorphone HCl 0.5 MG/0.5 ML SYRINGE IVPUSH ×5 (01:42→20:53)
[2021-12-29] MEDS: Lactated Ringers 1,000 ML 125 ML IVCONT ×4 (01:43→20:52)
[2021-12-29] MEDS: ondansetron HCL 4 MG/2 ML VIAL IVPUSH (05:19)
[2021-12-29] MEDS: Acetaminophen 325 MG TABLET 650 MG PO ×2 (05:19→10:54)
[2021-12-29] MEDS: Omeprazole 20 MG CAPSULE.DR PO ×2 (05:19→16:53)
[2021-12-29 06:42] LABS: Hematocrit 37.7 % (37.0-47.0); Hemoglobin 12.1 g/dl (12.0-16.0); Mean Corpuscular HGB Conc 32.1 g/dl (31.0-35.0); Mean Corpuscular Volume 96.7 fL (80.0-98.0); Mean Platelet Volume 12.3 fL (9.4-12.3); Platelet Count 147 X10*3/uL (160-400); Red Cell Distribution Width 13.1 % (11.0-16.0); White Blood Count 6.3 X10*3/uL (4.8-10.8)
[2021-12-29 06:50] LABS: Anion Gap 11 (12-20); Blood Urea Nitrogen 4 mg/dL (9-16); Calcium 8.7 mg/dL (8.4-10.2); Carbon Dioxide 28 mmol/L (22-29); Chloride 101 mmol/L (96-108); Creatinine Clr Calc Pharmacy 117.7; Estimated Glomerular Filt Rate > 60; Glucose Fasting 98 mg/dL (60-99); Magnesium 1.5 mg/dL (1.6-2.6); Sodium 136 mmol/L (135-145)
[2021-12-29] MEDS: Magnesium Oxide 400 MG TABLET PO ×3 (08:42→20:53)
[2021-12-29] MEDS: Propranolol HCL 20 MG TABLET PO ×2 (08:43→20:53)
[2021-12-29] MEDS: Magnesium Sulfate/H2O 2 GM/50 ML PIGGYBACK IV (08:45)
[2021-12-29] MEDS: 0.9 % Sodium Chloride Flush 3 ML SYRINGE IVFLUSH (08:45)
[2021-12-29] MEDS: PHENobarbitaL 15 MG TABLET PO (08:46)
--- NOTE | 2021-12-29 08:55 | P.PNIM_ITS ---
Subjective Subjective Date of Service: 12/29/21 Interval History: cc: abd pain interval history: failed solid diet again yesterday, but again wants to try solids today Cardiovascular Cardiovascular: Reports no additional cardiovascular complaints Respiratory Respiratory: Reports no additional respiratory complaints Physical Exam Vital Signs: Vital Signs: Last Vital Signs Temp 96.2 F L 12/29/21 07:25 Pulse 65 12/29/21 07:25 Resp 20 12/29/21 07:25 BP 124/69 12/29/21 07:25 Pulse Ox 99 12/29/21 07:25 BMI result Body Mass Index 39.2 General: AO X 3, NAD Resp:? CTA bilateral, no accessory muscles used CVS: S1,S2,RRR GI: soft, mildly tender, non distended Neuro:? motor grossly intact, alert Psych: appropriate affect, appropriate insight? Objective Data Active Medications Acetaminophen (Acetaminophen 325 Mg Tablet) 650 mg PO Q6H PRN PRN Reason: Pain, Mild (Pain Scale 1-3) Last Admin: 12/29/21 05:19 Dose: 650 mg Documented by: SANDI Enoxaparin Sodium (Enoxaparin Sodium 40 Mg/0.4 Ml Syringe) 40 mg SUBCUT Q24H [facility] Last Admin: 12/28/21 22:09 Dose: 40 mg Documented by: SANDI Guaifenesin (Guaifenesin 100 Mg/5 Ml Liquid) 5 ml PO Q6H PRN PRN Reason: cough Last Admin: 12/28/21 18:08 Dose: 5 ml Documented by: MARIANA Hydromorphone HCl (Hydromorphone Hcl 0.5 Mg/0.5 Ml Syringe) 0.5 mg IVPUSH Q4H PRN; Protocol PRN Reason: moderate pain Last Admin: 12/29/21 06:31 Dose: 0.5 mg Documented by: SANDI Hydroxyzine HCl (Hydroxyzine Hcl 25 Mg Tablet) 25 mg PO TID PRN PRN Reason: Anxiety Last Admin: 12/26/21 08:39 Dose: 25 mg Documented by: KEV Lactated Ringer's (Lr) 1,000 mls @ 125 mls/hr IVCONT .Q8H [facility] Last Admin: 12/29/21 08:44 Dose: 125 mls/hr Documented by: LORRAINE Magnesium Sulfate (Magnesium Sulfate/H2o) 2 gm in 50 mls @ 25 mls/hr IV ONCE ONE Stop: 12/29/21 09:10 Last Admin: 12/29/21 08:45 Dose: 25 mls/hr Documented by: LORRAINE Magnesium Oxide (Magnesium Oxide 400 Mg Tablet) 400 mg PO TID [facility] Last Admin: 12/29/21 08:42 Dose: 400 mg Documented by: LORRAINE Medication (No Benzodiazepines) 1 each MISCELLANE DAILY [facility] Melatonin (Melatonin 3 Mg Tablet) 6 mg PO BEDTIME PRN PRN Reason: Insomnia Last Admin: 12/25/21 21:10 Dose: 6 mg Documented by: ANA MARIA Montelukast Sodium (Montelukast Sodium 10 Mg Tablet) 10 mg PO BEDTIME [facility] Last Admin: 12/28/21 22:08 Dose: 10 mg Documented by: SANDI Omeprazole (Omeprazole 20 Mg Capsule.Dr) 20 mg PO BID@0630,1630 [facility] Last Admin: 12/29/21 05:19 Dose: 20 mg Documented by: SANDI Ondansetron HCl (Ondansetron Hcl 4 Mg/2 Ml Vial) 4 mg IVPUSH Q6H PRN PRN Reason: nausea Last Admin: 12/29/21 05:19 Dose: 4 mg Documented by: SANDI Phenobarbital (Phenobarbital 15 Mg Tablet) 15 mg PO BID [facility]; Protocol Stop: 12/29/21 09:01 Last Admin: 12/29/21 08:46 Dose: 15 mg Documented by: LORRAINE Phenobarbital (Phenobarbital 15 Mg Tablet) 15 mg PO DAILY [facility]; Protocol Stop: 12/31/21 09:01 Propranolol HCl (Propranolol Hcl 20 Mg Tablet) 20 mg PO BID [facility]; Protocol Last Admin: 12/29/21 08:43 Dose: 20 mg Documented by: LORRAINE Senna (Sennosides 8.6 Mg Tablet) 17.2 mg PO BEDTIME PRN PRN Reason: Constipation Sodium Chloride (0.9 % Sodium Chloride Flush 3 Ml Syringe) 3 ml IVFLUSH QSHIFT [facility] Last Admin: 12/29/21 08:45 Dose: 3 ml Documented by: LORRAINE Topiramate (Topiramate 25 Mg Tablet) 25 mg PO BEDTIME [facility] Last Admin: 12/28/21 22:08 Dose: 25 mg Documented by: SANDI Labs CBC & Chem 7: 12/29/21 06:09 12/29/21 06:09 Labs: Laboratory Results - last 24 hr 12/29/21 12/29/21 06:09 06:09 MCV 96.7 MCH 31.0 MCHC 32.1 RDW 13.1 Plt Count 147 L MPV 12.3 Absolute Nucleated RBC 0.000 Nucleated RBC % (auto) 0.0 Anion Gap 11 L Estim Creat Clear Calc 117.7 Estimated GFR > 60 Fasting Glucose 98 Calcium 8.7 Magnesium 1.5 L Assessment and Plan (1) Acute alcoholic pancreatitis: Status: Acute Plan 56F presented with abd pain acute alcoholic pancreatitis had pain with solids again yesterday, was reverted to clears, now interested in trying solids again low fat diet, monitor for tolerance alcohol dependence with withdrawal much improved continue phenobarbital protocol vitamin supplements requesting care team eval hypomagnesemia, hyokalemia mg still 1.5, potassium 4 continue po mag 400mg tid will give additional 2gm iv once TEODORA/morbid obesity weight loss recommended non compliant with cpap HTN amlodipine and chlorthalidone on hold for now with low normal bp alcoholic steatohepatitis etoh cessation dvt prophylaxis - lovenox full code reason for continued hospitalization: has yet to tolerate solid diet, still using iv opiates for pain Quality Stroke Does the patient have a stroke diagnosis?: No VTE Prior VTE?: No VTE Risk Level:: Medical - moderate - high VTE Device Contraindication: Treatment Not Indicated VTE Drug Contraindication: N/A - Med Ordered
--- NOTE | 2021-12-29 12:07 | MHC.RECOVRN ---
T/w met with pt in 459 after consult placed to CARE Team for alcohol use. Upon entering, pt in bed, awake, alert, watching TV, appears comfortable. Pt reports this is first hospitalization for pancreatitis. Pt reports alcohol use began in 2012 after a bad breakup. Prior to that, pt states I never liked it. Pt has had one significant period of abstinence in 2019 x 8 months. Pt reports that dx and hospitalization with kidney failure in Oct 2019 caused pt to cease alcohol use. Pt resumed drinking in Jun 2020 and has steadily increased amount since that time. Currently, pt reports drinking 4-5 nips of vodka every hour for 3 days preceding admission. Pt has had one ATS admission, [facility] in [place] approx 1 month ago. Pt reports experiencing hallucinations while there and subsequently sent out to [facility]. Pt did not return to [facility] after hospitalization because it was dirty and gross and they were mean. Pt reports that Dr. Boswell has trialled Campral with pt unsuccessfully. Pt denies any other treatment for AUD. Pt reports family hx FRANKO. Discussed recovery supports and services with pt, including medications for AUD. Pt reports being prescribed Vicodin for chronic back pain-pt would not be a candidate for naltrexone. Pt is very interested in antabuse and would like to initiate while inpatient if possible. Pt states It would make me feel safe. 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 Pt states I will cut out absolutely everything. I can't drink anymore. Pt denies having supportive people who do not drink, pt states My roommate drinks and parties, the only one is my son in law but he lives in [place]. Pt interested in meeting with control and recovery combat rescue while in the hospital, t/w will arrange. Pt provided with many resources as well as t/w contact information if questions or concerns arise. Pt reports feeling overwhelmed with information, t/w will check in again. Case discussed with Esperanza Alvarez APRN.
--- NOTE | 2021-12-29 14:42 | MHC.CM.PN ---
per rounds pt will be seen [place] care team prior to dc
[2021-12-29] MEDS: hydrOXYzine HCL 25 MG TABLET PO (16:32)
--- NOTE | 2021-12-29 18:07 | MHC.RECOVSUP ---
Recovery Support note: Patient informed Recovery Support Team that she is interested in CSS after discharged. This blog writer met with patient to provide education on CSS/TSS facilities and to provide information. Encouraged patient to contact Ganesh Barone when she is feeling up for it and to reach out to Recovery Support Team for assistance.
[2021-12-29] MEDS: Montelukast Sodium 10 MG TABLET PO (20:52)
[2021-12-29] MEDS: Topiramate 25 MG TABLET PO (20:52)
[2021-12-29] MEDS: Melatonin 3 MG TABLET 6 MG PO (20:52)
[2021-12-30] VITALS (8 sets, daily range): BP systolic 112–134; BP diastolic 39–66; PULSE 61–67; RESP 16–20; TEMP 36.2–36.9; O2SAT 96–100
[2021-12-30] MEDS: Enoxaparin Sodium 40 MG/0.4 ML SYRINGE SUBCUT ×2 (01:02→22:29)
[2021-12-30] MEDS: HYDROmorphone HCl 0.5 MG/0.5 ML SYRINGE IVPUSH ×5 (01:03→21:06)
[2021-12-30] MEDS: Lactated Ringers 1,000 ML 125 ML IVCONT (05:29)
[2021-12-30] MEDS: Omeprazole 20 MG CAPSULE.DR PO ×2 (05:29→17:32)
[2021-12-30 06:07] LABS: Anion Gap 10 (12-20); Blood Urea Nitrogen 5 mg/dL (9-16); Calcium 8.5 mg/dL (8.4-10.2); Carbon Dioxide 27 mmol/L (22-29); Chloride 103 mmol/L (96-108); Creatinine Clr Calc Pharmacy 107.2; Estimated Glomerular Filt Rate > 60; Glucose Fasting 104 mg/dL (60-99); Magnesium 1.8 mg/dL (1.6-2.6); Potassium 4.3 mmol/L (3.3-5.1); Sodium 136 mmol/L (135-145)
[2021-12-30] MEDS: PHENobarbitaL 15 MG TABLET PO (08:35)
[2021-12-30] MEDS: Propranolol HCL 20 MG TABLET PO ×2 (08:36→21:02)
[2021-12-30] MEDS: Magnesium Oxide 400 MG TABLET PO ×3 (08:36→21:03)
[2021-12-30] MEDS: Acetaminophen 325 MG TABLET 650 MG PO ×2 (08:51→15:11)
[2021-12-30] MEDS: guaiFENesin 100 MG/5 ML LIQUID PO ×2 (08:52→22:28)
[2021-12-30] MEDS: diphenhydrAMINE HCL 25 MG TABLET PO (09:56)
--- NOTE | 2021-12-30 10:07 | P.PNADD_ITS ---
Subjective Subjective Date of Service: 12/29/21 Reason For Visit: pancreatitis Interim History: Information obtained via chart review and Recovery Support RN (RSRJose) Patient seen by RSRN earlier in the day and expressed interest in Disulfiram trial. She reported that she has briefly trialled Campral, but did not find it to be helpful. She reported one admission to ATS She denied any other substance use PCP has been following and prescribed Campral. When this assembly instructions writer presented to evaluate patient, patient was tearful reporting that she was now homeless as her roomate had just told her she could not go back to live with them. Patient asking for referral to treatment facility. Antabuse eval deferred and patient reqeuest passed on to Recovery guidance services coordinator who met with patient and provided information on CSS level of care and encouraged patien to call for admission. Review of Systems Medical Review of Systems: unchanged Mental Status Exam Mental Status Exam Patient Appearance: Appropriate Patient Orientation: Person, Place, Time and Situation Level of Consciousness: Awake Patient Behavior: Crying Diagnostics Vital Signs (24Hr): Vital Signs - 24 hr 12/29/21 11:07 12/29/21 15:47 12/29/21 19:26 Temperature 96.3 F L 97.1 F 97.9 F Pulse Rate 62 64 63 Respiratory Rate 20 18 18 Blood Pressure 134/66 159/89 H 125/53 L Pulse Oximetry 98 98 99 12/29/21 20:53 12/29/21 23:21 12/30/21 01:03 Temperature 98.5 F Pulse Rate 59 Respiratory Rate 18 13 20 Blood Pressure 112/55 L Pulse Oximetry 97 12/30/21 04:00 12/30/21 05:28 12/30/21 07:18 Temperature 97.1 F 98.4 F Pulse Rate 61 67 Respiratory Rate 16 18 20 Blood Pressure 112/66 132/58 L Pulse Oximetry 100 97 BMI result Body Mass Index 39.2 Labs Results: 12/29/21 06:09 12/30/21 05:37 Labs: Laboratory Results - last 48 hr 12/29/21 12/29/21 12/30/21 06:09 06:09 05:37 WBC 6.3 RBC 3.90 L Hgb 12.1 Hct 37.7 MCV 96.7 MCH 31.0 MCHC 32.1 RDW 13.1 Plt Count 147 L MPV 12.3 Absolute Nucleated RBC 0.000 Nucleated RBC % (auto) 0.0 Sodium 136 136 Potassium 4.0 4.3 Chloride 101 103 Carbon Dioxide 28 27 Anion Gap 11 L 10 L BUN 4 L 5 L Creatinine 0.61 0.67 Estim Creat Clear Calc 117.7 107.2 Estimated GFR > 60 > 60 Fasting Glucose 98 104 H Calcium 8.7 8.5 Magnesium 1.5 L 1.8 Imaging Radiology Impressions: ITS Impressions Abdomen/Pelvis CT 12/24/21 21:25 IMPRESSION: Question mild fat stranding surrounding the pancreas and in the small bowel mesentery suggestive of mild pancreatitis versus changes due to motion artifact. Enlarged fatty liver. Small 9 x 12 mm splenic artery aneurysm. Fleischner guidelines were followed. Medications Medications Current Medications Acetaminophen (Acetaminophen 325 Mg Tablet) 650 mg PO Q6H PRN PRN Reason: Pain, Mild (Pain Scale 1-3) Last Admin: 12/30/21 08:51 Dose: 650 mg Documented by: Enoxaparin Sodium (Enoxaparin Sodium 40 Mg/0.4 Ml Syringe) 40 mg SUBCUT Q24H [facility] Last Admin: 12/30/21 01:02 Dose: 40 mg Documented by: Guaifenesin (Guaifenesin 100 Mg/5 Ml Liquid) 5 ml PO Q6H PRN PRN Reason: cough Last Admin: 12/30/21 08:52 Dose: 5 ml Documented by: Hydromorphone HCl (Hydromorphone Hcl 0.5 Mg/0.5 Ml Syringe) 0.5 mg IVPUSH Q4H PRN; Protocol PRN Reason: moderate pain Last Admin: 12/30/21 09:56 Dose: 0.5 mg Documented by: Hydroxyzine HCl (Hydroxyzine Hcl 25 Mg Tablet) 25 mg PO TID PRN PRN Reason: Anxiety Last Admin: 12/29/21 16:32 Dose: 25 mg Documented by: Magnesium Oxide (Magnesium Oxide 400 Mg Tablet) 400 mg PO TID [facility] Last Admin: 12/30/21 08:36 Dose: 400 mg Documented by: Medication (No Benzodiazepines) 1 each MISCELLANE DAILY [facility] Melatonin (Melatonin 3 Mg Tablet) 6 mg PO BEDTIME PRN PRN Reason: Insomnia Last Admin: 12/29/21 20:52 Dose: 6 mg Documented by: Montelukast Sodium (Montelukast Sodium 10 Mg Tablet) 10 mg PO BEDTIME [facility] Last Admin: 12/29/21 20:52 Dose: 10 mg Documented by: Omeprazole (Omeprazole 20 Mg Capsule.) 20 mg PO BID@0630,1630 [facility] Last Admin: 12/30/21 05:29 Dose: 20 mg Documented by: Ondansetron HCl (Ondansetron Hcl 4 Mg/2 Ml Vial) 4 mg IVPUSH Q6H PRN PRN Reason: nausea Last Admin: 12/29/21 05:19 Dose: 4 mg Documented by: Phenobarbital (Phenobarbital 15 Mg Tablet) 15 mg PO DAILY [facility]; Protocol Stop: 12/31/21 09:01 Last Admin: 12/30/21 08:35 Dose: 15 mg Documented by: Propranolol HCl (Propranolol Hcl 20 Mg Tablet) 20 mg PO BID [facility]; Protocol Last Admin: 12/30/21 08:36 Dose: 20 mg Documented by: Senna (Sennosides 8.6 Mg Tablet) 17.2 mg PO BEDTIME PRN PRN Reason: Constipation Sodium Chloride (0.9 % Sodium Chloride Flush 3 Ml Syringe) 3 ml IVFLUSH QSHIFT [facility] Last Admin: 12/30/21 08:36 Dose: Not Given Documented by: Topiramate (Topiramate 25 Mg Tablet) 25 mg PO BEDTIME [facility] Last Admin: 12/29/21 20:52 Dose: 25 mg Documented by: Allergies Allergies Allergy/AdvReac Type Severity Reaction Status Date / Time aspirin [ASPIRIN] Allergy Unknown RASH Verified 11/18/21 13:33 Assessment & Plan Assessment & Plan (1) Alcohol use disorder, severe, dependence: Status: Acute Code(s): F10.20 - Alcohol dependence, uncomplicated Assessment and Plan: * Continue Campral TID * Resources provided for CSS/TSS as requested I spent __15____ minutes with the patient and/or on the patient floor today, greater than?50% of which was spent counseling/coordinating care.
--- NOTE | 2021-12-30 14:40 | P.PNIM_ITS ---
Subjective Subjective Date of Service: 12/30/21 Interval History: cc: abd pain interval history:conitnues to improve Cardiovascular Cardiovascular: Reports no additional cardiovascular complaints Respiratory Respiratory: Reports no additional respiratory complaints Physical Exam Vital Signs: Vital Signs: Last Vital Signs Temp 97.7 F 12/30/21 11:05 Pulse 67 12/30/21 11:05 Resp 18 12/30/21 11:05 BP 134/61 12/30/21 11:05 Pulse Ox 97 12/30/21 11:05 BMI result Body Mass Index 39.2 General: AO X 3, no acute distress Resp: CTA bilateral, no accessory muscles used CVS: S1,S2,RRR GI: soft, non tender, non distended Neuro: motor grossly intact, alert Psych: appropriate affect, appropriate insight Objective Data Active Medications Acetaminophen (Acetaminophen 325 Mg Tablet) 650 mg PO Q6H PRN PRN Reason: Pain, Mild (Pain Scale 1-3) Last Admin: 12/30/21 08:51 Dose: 650 mg Documented by: LORRAINE Enoxaparin Sodium (Enoxaparin Sodium 40 Mg/0.4 Ml Syringe) 40 mg SUBCUT Q24H [facility] Last Admin: 12/30/21 01:02 Dose: 40 mg Documented by: SANDI Guaifenesin (Guaifenesin 100 Mg/5 Ml Liquid) 5 ml PO Q6H PRN PRN Reason: cough Last Admin: 12/30/21 08:52 Dose: 5 ml Documented by: LORRAINE Hydromorphone HCl (Hydromorphone Hcl 0.5 Mg/0.5 Ml Syringe) 0.5 mg IVPUSH Q4H PRN; Protocol PRN Reason: moderate pain Last Admin: 12/30/21 09:56 Dose: 0.5 mg Documented by: LORRAINE Hydroxyzine HCl (Hydroxyzine Hcl 25 Mg Tablet) 25 mg PO TID PRN PRN Reason: Anxiety Last Admin: 12/29/21 16:32 Dose: 25 mg Documented by: LORRAINE Magnesium Oxide (Magnesium Oxide 400 Mg Tablet) 400 mg PO TID [facility] Last Admin: 12/30/21 08:36 Dose: 400 mg Documented by: LORRAINE Medication (No Benzodiazepines) 1 each MISCELLANE DAILY [facility] Melatonin (Melatonin 3 Mg Tablet) 6 mg PO BEDTIME PRN PRN Reason: Insomnia Last Admin: 12/29/21 20:52 Dose: 6 mg Documented by: SANDI Montelukast Sodium (Montelukast Sodium 10 Mg Tablet) 10 mg PO BEDTIME [facility] Last Admin: 12/29/21 20:52 Dose: 10 mg Documented by: SANDI Omeprazole (Omeprazole 20 Mg Capsule.Dr) 20 mg PO BID@0630,1630 [facility] Last Admin: 12/30/21 05:29 Dose: 20 mg Documented by: SANDI Ondansetron HCl (Ondansetron Hcl 4 Mg/2 Ml Vial) 4 mg IVPUSH Q6H PRN PRN Reason: nausea Last Admin: 12/29/21 05:19 Dose: 4 mg Documented by: SANDI Phenobarbital (Phenobarbital 15 Mg Tablet) 15 mg PO DAILY [facility]; Protocol Stop: 12/31/21 09:01 Last Admin: 12/30/21 08:35 Dose: 15 mg Documented by: LORRAINE Propranolol HCl (Propranolol Hcl 20 Mg Tablet) 20 mg PO BID [facility]; Protocol Last Admin: 12/30/21 08:36 Dose: 20 mg Documented by: LORRAINE Senna (Sennosides 8.6 Mg Tablet) 17.2 mg PO BEDTIME PRN PRN Reason: Constipation Sodium Chloride (0.9 % Sodium Chloride Flush 3 Ml Syringe) 3 ml IVFLUSH QSHIFT [facility] Last Admin: 12/30/21 08:36 Dose: Not Given Documented by: LORRAINE Non-Admin Reason: IV Running Topiramate (Topiramate 25 Mg Tablet) 25 mg PO BEDTIME [facility] Last Admin: 12/29/21 20:52 Dose: 25 mg Documented by: SANDI Labs CBC & Chem 7: 12/29/21 06:09 12/30/21 05:37 Labs: Laboratory Results - last 24 hr 12/30/21 05:37 Anion Gap 10 L Estim Creat Clear Calc 107.2 Estimated GFR > 60 Fasting Glucose 104 H Calcium 8.5 Magnesium 1.8 Assessment and Plan (1) Acute alcoholic pancreatitis: Status: Acute Plan 56F presented with abd pain acute alcoholic pancreatitis much better, tolerating solids alcohol dependence with withdrawal much improved continue phenobarbital protocol vitamin supplements hypomagnesemia, hyokalemia mg still 1.5, potassium 4 continue po mag 400mg tid will give additional 2gm iv once TEODORA/morbid obesity weight loss recommended non compliant with cpap HTN amlodipine and chlorthalidone on hold for now with low normal bp alcoholic steatohepatitis etoh cessation dvt prophylaxis - lovenox full code reason for continued hospitalization: social issues, CM following Quality Stroke Does the patient have a stroke diagnosis?: No VTE Prior VTE?: No VTE Risk Level:: Medical - moderate - high VTE Device Contraindication: Treatment Not Indicated VTE Drug Contraindication: N/A - Med Ordered
[2021-12-30] MEDS: 0.9 % Sodium Chloride Flush 3 ML SYRINGE IVFLUSH ×2 (15:05→21:05)
--- NOTE | 2021-12-30 15:50 | MHC.RECOVRN ---
Broad search for [facility] bed has been completed. Pt completed interview with [facility] at 12:45PM. T/w spoke with Rigoberto ([phone]) after interview and was instructed to call back tomorrow at 8:30AM for bed availability. [facility] has bed availability, referral sent, spoke with Gen ([phone]), waiting for nursing to review. Will continue to follow.
[2021-12-30] MEDS: Topiramate 25 MG TABLET PO (21:04)
[2021-12-30] MEDS: hydrOXYzine HCL 25 MG TABLET PO (21:04)
[2021-12-30] MEDS: Montelukast Sodium 10 MG TABLET PO (21:04)
[2021-12-30] MEDS: diphenhydrAMINE HCL 50 MG/ML VIAL 25 MG IVPUSH (22:29)
[2021-12-31] VITALS (7 sets, daily range): BP systolic 123–160; BP diastolic 60–72; PULSE 55–70; RESP 16–20; TEMP 35.6–36.8; O2SAT 97–99
[2021-12-31] MEDS: HYDROmorphone HCl 0.5 MG/0.5 ML SYRINGE IVPUSH ×6 (00:55→22:25)
[2021-12-31] MEDS: Omeprazole 20 MG CAPSULE.DR PO ×2 (05:14→17:44)
[2021-12-31] MEDS: Propranolol HCL 20 MG TABLET PO ×2 (08:22→22:19)
[2021-12-31] MEDS: Magnesium Oxide 400 MG TABLET PO ×3 (08:23→22:19)
[2021-12-31] MEDS: 0.9 % Sodium Chloride Flush 3 ML SYRINGE IVFLUSH ×3 (08:23→22:20)
[2021-12-31] MEDS: PHENobarbitaL 15 MG TABLET PO (08:23)
[2021-12-31] MEDS: diphenhydrAMINE HCL 50 MG/ML VIAL 25 MG IVPUSH (09:29)
--- NOTE | 2021-12-31 13:33 | HO.PM.IMPN ---
Subjective Subjective Date of Service: 12/31/21 Interval History: cc: abd pain interval history: still with some abd pain Cardiovascular Cardiovascular: Reports no additional cardiovascular complaints Respiratory Respiratory: Reports no additional respiratory complaints Physical Exam Vital Signs: Vital Signs: Last Vital Signs Temp 97.0 F 12/31/21 10:57 Pulse 55 12/31/21 10:57 Resp 18 12/31/21 10:57 BP 135/72 12/31/21 10:57 Pulse Ox 99 12/31/21 10:57 BMI result Body Mass Index 39.2 General: AO X 3, no acute distress Resp: CTA bilateral, no accessory muscles used CVS: S1,S2,RRR GI: soft, mildly tender, non distended Neuro: motor grossly intact, alert Psych: appropriate affect, appropriate insight Objective Data Active Medications Acetaminophen (Acetaminophen 325 Mg Tablet) 650 mg PO Q6H PRN PRN Reason: Pain, Mild (Pain Scale 1-3) Last Admin: 12/30/21 15:11 Dose: 650 mg Documented by: LORRAINE Enoxaparin Sodium (Enoxaparin Sodium 40 Mg/0.4 Ml Syringe) 40 mg SUBCUT Q24H [facility] Last Admin: 12/30/21 22:29 Dose: 40 mg Documented by: BONY Guaifenesin (Guaifenesin 100 Mg/5 Ml Liquid) 5 ml PO Q6H PRN PRN Reason: cough Last Admin: 12/30/21 22:28 Dose: 5 ml Documented by: BONY Hydromorphone HCl (Hydromorphone Hcl 0.5 Mg/0.5 Ml Syringe) 0.5 mg IVPUSH Q4H PRN; Protocol PRN Reason: moderate pain Last Admin: 12/31/21 09:29 Dose: 0.5 mg Documented by: TEOFILO Hydroxyzine HCl (Hydroxyzine Hcl 25 Mg Tablet) 25 mg PO TID PRN PRN Reason: Anxiety Last Admin: 12/30/21 21:04 Dose: 25 mg Documented by: BONY Magnesium Oxide (Magnesium Oxide 400 Mg Tablet) 400 mg PO TID [facility] Last Admin: 12/31/21 08:23 Dose: 400 mg Documented by: TEOFILO Medication (No Benzodiazepines) 1 each MISCELLANE DAILY [facility] Melatonin (Melatonin 3 Mg Tablet) 6 mg PO BEDTIME PRN PRN Reason: Insomnia Last Admin: 12/29/21 20:52 Dose: 6 mg Documented by: SANDI Montelukast Sodium (Montelukast Sodium 10 Mg Tablet) 10 mg PO BEDTIME [facility] Last Admin: 12/30/21 21:04 Dose: 10 mg Documented by: BONY Omeprazole (Omeprazole 20 Mg Capsule.Dr) 20 mg PO BID@0630,1630 [facility] Last Admin: 12/31/21 05:14 Dose: 20 mg Documented by: BONY Ondansetron HCl (Ondansetron Hcl 4 Mg/2 Ml Vial) 4 mg IVPUSH Q6H PRN PRN Reason: nausea Last Admin: 12/29/21 05:19 Dose: 4 mg Documented by: SANDI Propranolol HCl (Propranolol Hcl 20 Mg Tablet) 20 mg PO BID [facility]; Protocol Last Admin: 12/31/21 08:22 Dose: 20 mg Documented by: TEOFILO Senna (Sennosides 8.6 Mg Tablet) 17.2 mg PO BEDTIME PRN PRN Reason: Constipation Sodium Chloride (0.9 % Sodium Chloride Flush 3 Ml Syringe) 3 ml IVFLUSH QSHIFT [facility] Last Admin: 12/31/21 08:23 Dose: 3 ml Documented by: TEOFILO Topiramate (Topiramate 25 Mg Tablet) 25 mg PO BEDTIME [facility] Last Admin: 12/30/21 21:04 Dose: 25 mg Documented by: BONY Labs CBC & Chem 7: 12/29/21 06:09 12/30/21 05:37 Assessment and Plan (1) Acute alcoholic pancreatitis: Status: Acute Plan 56F presented with abd pain acute alcoholic pancreatitis much better, tolerating solids, though still occasionally requiring iv pain meds alcohol dependence with withdrawal much improved continue phenobarbital protocol vitamin supplements hypomagnesemia, hyokalemia resolved, continue maintance TEODORA/morbid obesity weight loss recommended non compliant with cpap HTN amlodipine and chlorthalidone on hold for now with low normal bp alcoholic steatohepatitis etoh cessation dvt prophylaxis - lovenox full code reason for continued hospitalization: social issues, CM following, requiring occasional IV pain meds Quality Stroke Does the patient have a stroke diagnosis?: No VTE Prior VTE?: No VTE Risk Level:: Medical - moderate - high VTE Device Contraindication: Treatment Not Indicated VTE Drug Contraindication: N/A - Med Ordered
--- NOTE | 2021-12-31 13:44 | MHC.CM.PN ---
pt staying till tomorrow daniela monroe from care team continuing to work on substance abuse placment
[2021-12-31] MEDS: ondansetron HCL 4 MG/2 ML VIAL IVPUSH (13:53)
--- NOTE | 2021-12-31 14:34 | MHC.RECOVRN ---
Pt has been denied beds at [facility] as well as [facility] due to medical reasons. T/w will f/u with facilities to clarify. Awaiting review from [facility]. No availability today at [facility], instructed to call in the morning. Provider, NAKIA, and Esperanza Alvarez APRN aware.
[2021-12-31] MEDS: guaiFENesin 100 MG/5 ML LIQUID PO (17:46)
[2021-12-31] MEDS: Topiramate 25 MG TABLET PO (22:19)
[2021-12-31] MEDS: Montelukast Sodium 10 MG TABLET PO (22:20)
[2021-12-31] MEDS: Enoxaparin Sodium 40 MG/0.4 ML SYRINGE SUBCUT (22:20)
[2022-01-01] MEDS: guaiFENesin 100 MG/5 ML LIQUID PO ×2 (00:52→08:31)
[2022-01-01] MEDS: diphenhydrAMINE HCL 50 MG/ML VIAL 25 MG IVPUSH (00:52)
[2022-01-01 03:20] VITALS: RESP 18
[2022-01-01] MEDS: HYDROmorphone HCl 0.5 MG/0.5 ML SYRINGE IVPUSH ×2 (03:20→08:25)
[2022-01-01 03:26] VITALS: BP 118/55; PULSE 66; RESP 16; TEMP 36.7; O2SAT 98
[2022-01-01] MEDS: Omeprazole 20 MG CAPSULE.DR PO (06:17)
[2022-01-01 07:50] VITALS: BP 132/73; PULSE 68; RESP 20; TEMP 36.8; O2SAT 99
[2022-01-01] MEDS: 0.9 % Sodium Chloride Flush 3 ML SYRINGE IVFLUSH (08:25)
[2022-01-01] MEDS: Propranolol HCL 20 MG TABLET PO (08:25)
[2022-01-01] MEDS: Magnesium Oxide 400 MG TABLET PO (08:25)
[2022-01-01] MEDS: ondansetron HCL 4 MG/2 ML VIAL IVPUSH (08:31)
--- NOTE | 2022-01-01 10:05 | PM.DS ---
DS: Providers Provider Date of Service: 01/01/22 Date of admission: 12/24/21 23:22 Primary care physician: [facility] Consults: 12/29/21 08:01 Consult to Care Team Routine Comment: Reason for consultation: etoh DS: Diagnosis Discharge Diagnosis (1) Acute alcoholic pancreatitis: Status: Acute (2) Alcohol use disorder, severe, dependence: Status: Acute (3) Alcohol withdrawal: Status: Acute (4) Hypomagnesemia: Status: Acute DS: Summary Hospital Course Hospital Course: admission note HPI ?56-year-old female with a past medical history of alcohol abuse, history of pancreatitis, anxiety, depression presented to the hospital with a chief complaint of nausea vomiting and abdominal discomfort over the past few days.? Patient reports that she is having diffuse abdominal pain associated nausea and vomiting.? Denies any blood in the vomitus.? Patient is slightly drowsy secondary to Ativan she received in the ER; history is mildly limited.? Patient denies any chest pain or palpitations.? Mentions that she has been drinking all:? Last drink was prior to coming to the hospital.? Denies any fever chills cough.?Denies any urinary symptoms.? Per ER team patient not have nausea vomiting, abdominal tenderness; lipase was elevated consistent with acute pancreatitis.? Also received Ativan for possible withdrawal.? Admitted for further management Hospital course The patient was treated with IV fluid, IV pain medication for acute alcoholic pancreatitis with good response over the course of hospital stay as the pain improved and she became able to tolerate diet that was advanced. Advise total abstinence from alcohol. Developed alcohol withdrawal symptoms to treated with phenobarbital protocol with good response as symptoms remained controlled. Vitamin supplement given. Noted to have hypomagnesemia and hypokalemia which both were replaced and repeated. Advised weight loss for obesity. To be discharged for you should alter arranged by family caseworker. Time Spent with Patient Time attestation: Total time spent providing and/or coordinating discharge services: Discharge coordination time: Greater than 30 minutes Quality: Stroke Does the patient have a stroke diagnosis?: No Physical Exam Vital Signs: Vital Signs: Last Vital Signs Temp 98.3 F 01/01/22 07:50 Pulse 68 01/01/22 07:50 Resp 20 01/01/22 07:50 BP 132/73 01/01/22 07:50 Pulse Ox 99 01/01/22 07:50 BMI result Body Mass Index 39.2 Const: Other: Constitutional : Alert, comfortable, obese, not in distress Neck : Normal inspection, Supple Cardiovascular : RRR, S1 S2, no lower extremity edema Respiratory : fair bilateral air entry, no crackles, wheezes or rhonchi Gastrointestinal: soft, lax, Normal bowel sounds, Non tender Skin : Warm, Dry Neurological : Alert & oriented, No focal deficit Discharge Plan Discharge Patient Disposition: Detention Discharge Diagnosis: Alcohol withdrawal Alcoholic pancreatitis Referrals: [place],[facility] [Primary Care Provider] - 1 Week Discharge Medications: New magnesium oxide 400 mg (241.3 mg magnesium) Tablet 400 mg PO TID 7 Days Qty: 21 0RF omeprazole 20 mg Capsule,Delayed Release(Dr/Ec) 20 mg PO BID@0630,1630 30 Days Qty: 60 0RF Continued hydrocodone-acetaminophen 10-325 mg tablet 1.5 tab PO Q8H PRN (Reason: Pain) 0RF oxybutynin chloride 5 mg tablet extended release 24hr 1 tab PO DAILY 0RF amlodipine 10 mg tablet 1 tab PO DAILY 0RF Hold Instructions: Resume on 09/15/21. Hold until 09/15/21 omeprazole 20 mg capsule,delayed release(DR/EC) 1 cap PO BID 0RF propranolol 20 mg tablet 1 tab PO BID 0RF metoclopramide HCl [Reglan] 10 mg tablet 10 mg PO Q6H PRN (Reason: nausea and vomiting) Qty: 10 0RF topiramate 25 mg tablet 1 tab PO BEDTIME 0RF acamprosate 333 mg tablet,delayed release (DR/EC) 2 tab PO TID 0RF multivitamin Tablet 1 tab PO QAM 0RF cetirizine 10 mg tablet 1 tab PO QAM 0RF thiamine HCl (vitamin B1) 100 mg tablet 1 tab PO QAM 0RF chlorthalidone 25 mg tablet 1 tab PO QAM 0RF folic acid 1 mg tablet 1 tab PO QAM 0RF hydroxyzine pamoate 25 mg capsule 25 mg PO TID PRN (Reason: Anxiety) 0RF montelukast 10 mg tablet 10 mg PO BEDTIME 0RF magnesium chloride 64 mg tablet,delayed release (DR/EC) 64 mg PO BEDTIME 0RF cyclobenzaprine 5 mg tablet 5 mg PO BID PRN (Reason: muscle spasm) Qty: 60 0RF Rx Instructions: do not take simultaneously with tizanidine. Discharge Orders: Discharge Order (Routine); Ordered 01/01/22 Ordered By: Jose G Riggs Stand Alone Forms: Patient Portal Discharge page Care Plan Goals: Read below Health Concerns: Read below Plan of Treatment: Read below Assessment: You were admitted to the hospital for treatment of abdominal pain. Found to have inflammation of your pancreas as a result of alcohol abuse. Treated with IV fluid, pain medication and phenobarbital to control your withdrawal symptoms. You were able to tolerate diet well. Found to have low magnesium level that was replaced. We advise you total absence from alcohol We encourage weight loss
[2022-01-01 10:49] LABS: COVID-19 Test Negative (Negative)
--- NOTE | 2022-01-01 11:39 | MHC.CM.PN ---
PT DISCHARGING TODAY TO AN [facility] ARRANGED BY [employer]AIL [employer] SALES MANAGER. PT WILL BE TRANSPORTED VIA [facility].
--- NOTE | 2022-01-01 13:15 | MHC.RECOVRN ---
Pt discharged to [facility] in [place], [place]. Provider notified scripts to be sent to [facility] at [address] [place] [address] in [place]. Pt given t/w contact information if needed.
== END 2022-01-01 12:39 | disposition home or self-care (01) | DRG 282 ==
LOC: HO.ED 20:42 → HO.EDOVER 23:31 → HO.IMC 12-25 18:45
PROVIDERS: Internal Medicine; Admitting Provider Hospitalist; Emergency Provider Emergency Medicine; Visit Provider Student in an Organized Health Care Education/Training Program
DX: K85.20 Alcohol induced acute pancreatitis without necrosis or infection (principal); K70.0 Alcoholic fatty liver; E66.01 Morbid (severe) obesity due to excess calories; E83.42 Hypomagnesemia; F10.239 Alcohol dependence with withdrawal, unspecified; F32.A Depression, unspecified; F41.9 Anxiety disorder, unspecified; G47.33 Obstructive sleep apnea (adult) (pediatric); E87.6 Hypokalemia; Z99.89 Dependence on other enabling machines and devices; Z91.19 Patient's noncompliance with other medical treatment and regimen; I10 Essential (primary) hypertension; Z59.01 Sheltered homelessness; Y90.8 Blood alcohol level of 240 mg/100 ml or more; K29.20 Alcoholic gastritis without bleeding; Z68.39 Body mass index [BMI] 39.0-39.9, adult; Z20.822 Contact with and (suspected) exposure to COVID-19; Z88.6 Allergy status to analgesic agent; Z79.899 Other long term (current) drug therapy
CPT/HCPCS: 36415; 74176; 80048; 80053; 80076; 82077; 83690; 83735; 85025; 85027; 85610; 87635; 96361; 96374; 96375; 96376; 99285; J1170; J1200; J1650; J2060; J2270; J2405; J2560; J2765; J3475; Q0163